=== PATIENT | female | born 1955 | race Caucasian/White ===

== ENCOUNTER 2022-01-25 08:24 | Outpatient (CLI) | payer OTHER, SELFPAY | END 2022-01-25 08:25 | disposition home or self-care (01) | LOC: RAD 08:48 | PROVIDERS: PCP Internal Medicine; Visit Provider Physician Assistant | DX: Z01.419 Encounter for gynecological examination (general) (routine) without abnormal findings (principal); Z85.44 Personal history of malignant neoplasm of other female genital organs; L29.2 Pruritus vulvae; N39.3 Stress incontinence (female) (male); Z13.6 Encounter for screening for cardiovascular disorders; Z13.1 Encounter for screening for diabetes mellitus ==

== ENCOUNTER 2022-01-25 08:34 | Outpatient (CLI) | payer OTHER, SELFPAY ==
[2022-01-25 11:30] LABS: Chloride* 109 mmol/L (96-114)
[2022-01-25 11:31] LABS: Albumin* 4.1 g/dL (3.3-5.0); Potassium* 4.1 mmol/L (3.6-5.1); Sodium* 138 mmol/L (135-149)
[2022-01-25 11:33] LABS: Carbon Dioxide* 21 mmol/L (20-32); Cholesterol* 177 mg/dL (90-199)
[2022-01-25 11:34] LABS: Alanine Aminotransferase* 20 U/L (4-35); Alkaline Phosphatase* 104 U/L (40-150); Aspartate Amino Transferase* 24 U/L (12-35); Bilirubin Total* 1.2 mg/dL (0.1-1.5); Blood Urea Nitrogen* 14 mg/dL (7-30); Calcium* 9.1 mg/dL (8.4-10.6); Creatinine* 0.9 mg/dL (0.5-1.5); Estimated Glomerular Filt Rate 70.95; Glucose* 111 mg/dL (60-115); Total Protein* 6.7 g/dL (6.0-8.3); Triglycerides* 203 mg/dL (40-149)
[2022-01-25 11:35] LABS: HDL Cholesterol* 27 mg/dL (>=50); LDL Cholesterol Calculated 109 mg/dL (<100)
== END 2022-01-25 08:35 | disposition home or self-care (01) ==
PROVIDERS: PCP Internal Medicine; Visit Provider Physician Assistant
DX: Z00.00 Encounter for general adult medical examination without abnormal findings (principal); N39.0 Urinary tract infection, site not specified; I10 Essential (primary) hypertension; N39.3 Stress incontinence (female) (male); E66.9 Obesity, unspecified; E55.9 Vitamin D deficiency, unspecified; T83.510A Infection and inflammatory reaction due to cystostomy catheter, initial encounter; E03.8 Other specified hypothyroidism; E78.5 Hyperlipidemia, unspecified
CPT/HCPCS: 80053; 80061; 87086

== ENCOUNTER 2022-09-06 16:00 | Outpatient (CLI) | payer OTHER, SELFPAY | END 2022-09-06 16:01 | disposition home or self-care (01) | PROVIDERS: PCP Internal Medicine; Visit Provider Obstetrics & Gynecology | DX: R30.0 Dysuria (principal); R63.5 Abnormal weight gain | CPT/HCPCS: 84443; 87086 ==

== ENCOUNTER 2022-09-10 12:56 | Outpatient (CLI) | payer OTHER, SELFPAY ==
--- NOTE | 2022-09-10 13:20 | CRLHL7_ITS ---
For Patients: As a result of the Century Cures Act, medical imaging exams and procedure reports are released immediately into your electronic medical record. You may view this report before your referring provider. If you have questions, please contact your health care provider. BILATERAL SCREENING MAMMOGRAM WITH COMPUTER-AIDED DETECTION TECHNIQUE: CC and MLO views were obtained. These mammographic images have been obtained using full-field digital technique. These mammographic images were interpreted with the benefit of computer-aided detection. COMPARISON FILM: 06/26/21, 05/12/20. FINDINGS: There are scattered areas of fibroglandular density. IMPRESSION: There is no radiographic evidence for malignancy. ASSESSMENT: BI-RADS Category 1: Negative RECOMMENDATION: Routine screening mammogram in 1 year. A lay language report of this examination will be provided to the patient. RIKKI GARDNER M.D. Diagnostic Radiologist [email or web address] Transcribed: 09/11/2022, 2:[address]/Dictated by: Rikki Gardner MD @ 09/11/2022 9:11:00 AM (Electronically Signed)
--- NOTE | 2022-09-10 14:00 | CRLHL7_ITS ---
For Patients: As a result of the Century Cures Act, medical imaging exams and procedure reports are released immediately into your electronic medical record. You may view this report before your referring provider. If you have questions, please contact your health care provider. INDICATION: pelvic pain COMPARISON: none TECHNIQUE: 2D white scale and color Doppler images were acquired of the pelvis using a transabdominal and transvaginal approach. FINDINGS: Sonographic images demonstrate a normal size and smooth outer contour of the uterus. Uterus measures 7.7 cm in length by 4.0 cm in AP diameter by 5.3 cm in transverse dimension. Myometrial calcifications noted measuring 7 millimeters and 8 millimeters. The endometrium is not visualized due to dense uterine parenchyma. The ovaries are not visualized. There are no suspicious fluid collections within the cul-de-sac. IMPRESSION: Nonvisualization of the ovaries. Incidental uterine calcifications. Nonvisualization of the endometrium. Dictated by Rikki Saleh MD @ 09/11/2022 11:20:45 AM (Electronically Signed)
== END 2022-09-10 12:57 | disposition home or self-care (01) ==
LOC: MAMMO 12:56
PROVIDERS: PCP Internal Medicine; Visit Provider Obstetrics & Gynecology
DX: Z12.31 Encounter for screening mammogram for malignant neoplasm of breast (principal); R10.2 Pelvic and perineal pain
CPT/HCPCS: 76830; 76856; 77063; 77067

== ENCOUNTER 2023-02-11 13:55 | Outpatient (CLI) | payer OTHER, SELFPAY | END 2023-02-11 13:56 | disposition home or self-care (01) | LOC: NFLDREF 13:57 | PROVIDERS: PCP Internal Medicine; Visit Provider Obstetrics & Gynecology | DX: R30.0 Dysuria (principal); R10.2 Pelvic and perineal pain | CPT/HCPCS: 87086 ==

== ENCOUNTER 2023-09-09 14:54 | Outpatient (CLI) | payer MEDICARE, BC, SELFPAY ==
--- OUTSIDE RECORDS SUMMARY | 2023-09-10 06:02 | XMS_ITS | Clinical Summary ---
Author Name Unknown Organization [facility] Address [place], [place] [address] Care Team Providers Care Quality Process Lead Name Role Phone Pcp, No Primary Care Provider Unavailabl e Allergies Active Allergy Reactions Criticality Noted Date Comments Iodinated Contrast Media Hives 04/02/2011 Not certain which type of dye - possible gadolinium reaction. Patient tolerated Isoview 300 IV bolus for 11/2017 CT scan without problem. Signed Electronically: Lee Middleton M.D. ??. . . 12:09 PM 12/16/2017 Erythromycin Rash 08/25/2007 Medications Medication Sig Dispensed Refills Start Date End Date Status oxyCODONE-acetamin ophen, 5-325 mg, (PERCOCET) per tablet Take 1 to 2 tablets orally every 4-6 hours as needed for pain. Max acetaminophen dose: 4000mg in 24 hrs. 0 08/27/2012 Active cyclobenzaprine (FLEXERIL) 10 mg tablet Take 1 tablet by mouth every 8 hours if needed for Muscle Spasm. 30 tablet 0 08/28/2012 Active Active Problems Problem Noted Date Diagnosed Date Rectal bleeding 09/26/2009 Osteoarthritis of Knees 05/25/2009 Shoulder impingement syndrome 05/22/2009 Displacement of intervertebr al disc, site unspecified, without myelopathy Overview: L3-4 with L 3 radiculopathy, L4-5 radiculopathy Resolved Problems Problem Noted Date Diagnosed Date Resolved Date snf (current) use of anticoagulants 04/15/2011 05/03/2011 Immunizations Name Administration Dates Next Due Td (Age >=7 Years) 03/07/2005 Family History Medical History Relation Name Comments Diabetes Mother Hyperlipidemia Mother Relation Name Status Comments Mother Social History Tobacco Use Types Packs/Day Years Used Date Smoking Tobacco: Former Cigarettes Q uit: 07/28/1993 Smokeless Tobacco: Never Alcohol Use Standard Drinks/Week Comments No 0 (1 standard drink = 0.6 oz pur e alcohol) Sex and Gender Information Value Date Recorded Sex Assigned at Not on file Gender Identity Not on file Sexual Orientation Not on file Obstetrics History Last Filed Vital Signs Vital Sign Reading Time Taken Comments Blood Pressure 137/86 08/27/2012 11:51 AM WATER TAXI FERRY OPERATOR Pulse 72 08/27/2012 11:51 AM WATER TAXI FERRY OPERATOR Temperature 37 ??C (98.6 ??F) 04/02/2011 12: 05 PM CDT Respiratory Rate 16 04/02/2011 12:0 5 PM CDT Oxygen Saturation 96% 09/11/2011 12: 06 PM WATER TAXI FERRY OPERATOR Inhaled Oxygen Concentration - - Weight 102.2 kg (225 lb 6.4 oz) 013 11:14 AM WATER TAXI FERRY OPERATOR Height 162.6 cm (5' 4) 04/02/2011 12:0 5 PM CDT Body Mass Index 38.69 04/02/2011 12:05 PM CDT Plan of Treatment Health Maintenance Due Date Last Done Comments COVID-19 vaccine series (#1) 03/12/1956 Tdap 1967 Depression screening for age 12+ 1968 BMI (ht and wt on same day) for age 18+ 1974 Hepatitis C screening for age 18-79 1974 Zoster (shingles) series for age 50+ (1 of 2) 2006 Mammogram for age 45-75 02/22/2015 02/22/2014, 04/21 Tetanus booster 03/07/2015 03/07/2005 Lipids for age 45-75 05/10/2015 05/10/2010 Colonoscopy through age 75 08/28/2015 08/28/2005 DEXA/DXA scan for age 65+ 2021 Pneumococcal series for age 65+ (1 of 1 - PCV) 2021 Influenza for age 65+ 03/28/2023 Care Teams Quality Process Lead Relationship Specialty Start Date End Date Pcp, No . PCP - General 02/06/23
== END 2023-09-09 14:55 | disposition home or self-care (01) ==
LOC: NFLDREF 09-10 06:00
PROVIDERS: PCP Internal Medicine; Referring Provider Internal Medicine; Visit Provider Internal Medicine
DX: R30.0 Dysuria (principal)
CPT/HCPCS: 87086

== ENCOUNTER 2023-12-10 06:37 | Emergency (ER) | payer MEDICARE, BC, SELFPAY ==
[2023-12-10] VITALS (28 sets, daily range): BP systolic 124–153; BP diastolic 107–131; PULSE 139–156; RESP 18; TEMP 36.5–36.9; O2SAT 93–97; BMI 38.3
[2023-12-10] MEDS: ASPIRIN 81 MG TAB.CHEW 324 MG PO (06:59)
[2023-12-10] MEDS: 0.9 % SODIUM CHLORIDE 500 ML 500 ML IV (07:00)
--- NOTE | 2023-12-10 07:01 | XR_ITS ---
Patient: KERRY SORIA Facility:?[facility] Patient ID:?[id number] Site Patient ID:?[id number] Site :?[id number] Study:?XRay-Chest 2V-12/10/2023 7:37:56 AM Ordering Physician:CAPO Final Report: INDICATION: Dyspnea. COMPARISON: None available. TECHNIQUE: 2 views. FINDINGS: Slightly rotated leftward on the frontal view of the chest. Medical Devices: None. Lung Volumes: Adequate inspiration. No significant atelectasis. Lungs: Upper lobe pulmonary venous diversion. Pleura and Pleural spaces: No significant pleural effusion. No pneumothorax. Mediastinum: Normal cardiomediastinal silhouette. Bony Thorax and Soft Tissues: No significant incidental findings. IMPRESSION: Upper lobe pulmonary venous diversion consistent with mild congestive heart failure. Dictated by Juan Carlos Pardo MD @ 12/10/2023 7:48:13 AM Signed by:?Juan Carlos Pardo MD @12/10/2023 7:48:13 AM (Electronic Signature)
[2023-12-10 07:07] LABS: Troponin, Point-of-Care* 0.02 ng/ml (0.01-0.04)
--- OUTSIDE RECORDS SUMMARY | 2023-12-10 07:16 | XMS_ITS | Clinical Summary ---
Author Name Unknown Organization [facility] Address [place], [place] [address] Care Team Providers Care Cod Clerk Name Role Phone Pcp, No Primary Care [...] Problem Noted Date Diagnosed Date Resolved Date USP (current) use of anticoagulants 04/15/2011 05/03/2011 Immunizations [...] Comments Blood Pressure 137/86 08/27/2012 11:51 AM FIRE SUPPORT MAN Pulse 72 08/27/2012 11:51 AM FIRE SUPPORT MAN Temperature 37 ??C (98.6 ??F) 04/02/2011 12: 05 PM CDT Respiratory Rate 16 04/02/2011 12:0 5 PM CDT Oxygen Saturation 96% 09/11/2011 12: 06 PM FIRE SUPPORT MAN Inhaled Oxygen Concentration - - Weight 102.2 kg (225 lb 6.4 oz) 013 11:14 AM FIRE SUPPORT MAN Height 162.6 cm (5' 4) 04/02/2011 12:0 5 PM CDT Body Mass Index 38.69 04/02/2011 12:05 PM CDT Plan of Treatment Health Maintenance Due Date Last Done Comments Tdap 1967 Depression screening for age 12+ [...] 65+ (1 of 1 - PCV) 2021 COVID-19 vaccine series (1 - 2022- season) 2023 Influenza for age 65+ 03/28/2024 Procedures Procedure Name Priority Date/Time Associated Diagnosis Comments SCAN-MAMMOGRAPHY REPORT 02/22/2014 12:00 AM CDT LIPID PANEL W REFLEX MEASURED LDL Routine 05/10/2010 7:47 AM CDT Screening, lipid from Last 3 Months or Most Recently Relevant to Health Maintenance Results * SCAN-MAMMOGRAPHY REPORT (02/22/2014 12:00 AM CDT) Anatomical Region Laterality Modality Other Narrative 02/23/2014 11:06 AM CDT Procedure Note Scanner - 02/22/2014 12:00 AM CDT Scanner OTHER * (ABNORMAL) LIPID PANEL W REFLEX MEASURED LDL (05/10/2010 7:47 AM CDT) CHOLESTEROL,TOTAL 186 110 - 199 mg/dL [facility] TRIGLYCERIDES 128 <150 mg/dL [facility] HDL CHOLESTEROL 36(L) >40 mg/dL [facility] CHOL/HDL RATIO 5.17(H) <4.51 [facility] LDL CHOLESTEROL 124 <131 mg/dL [facility] PATIENT STATUS Fasting [facility] Blood specimen (specimen) BLOOD SPECIMEN / Unknown 05/10/2010 7:47 AM CDT 05/10/2010 7:43 AM CDT Pat Ferguson MD CHEMISTRY Performing Organization Address City/State/[facility] Co de Phone Number [facility] [address] [place] [address] from Last 3 Months or Most Recently Relevant to Health Maintenance Care Teams Cod Clerk Relationship Specialty Start Date End Date Pcp, No . PCP - General 02/06/23
[2023-12-10 07:24] LABS: Basophils Absolute Auto 0.03 K/uL (0.00-0.30); Basophils Percent Auto 0.3 % (0.0-3.0); Eosinophils Absolute Auto 0.18 K/uL (0.00-0.50); Eosinophils Percent Auto 1.8 % (0.0-7.0); Hematocrit 54.2 % (33.0-51.0); Hemoglobin* 18.4 gm/dL (12.0-16.0); Immature Granulocytes Abs Auto 0.04 K/uL (0.00-0.30); Immature Granulocytes Pct Auto 0.4 %; Lymphocytes Absolute Auto 2.13 K/uL (0.90-2.90); Lymphocytes Percent Auto 21.2 % (20-44); Mean Corpuscular HGB Conc 34 gm/dL (32-36); Mean Corpuscular Hemoglobin 30 pg (26-34); Mean Corpuscular Volume 89 fL (80-100); Monocytes Percent Auto 5.3 % (0.0-11.0); Neutrophils Absolute Auto 7.16 K/uL (1.7-7.0); Platelet Count* 165 K/uL (140-440); RDW Coefficient of Variation % 12.2 % (11.5-15.5); Red Blood Count 6.06 m/uL (4.00-5.20); White Blood Count* 10.07 K/uL (4.50-11.00)
[2023-12-10 07:26] LABS: Slide Review Reflex No
--- NOTE | 2023-12-10 07:26 | ED_ITS ---
HPI - General Adult General Chief complaint: Chest Pain <Heather David MD - Last Filed: 12/16/23 03:23> Stated complaint: trouble breathing <Heather David MD - Last Filed: 12/16/23 03:23> Time Seen by Provider: 12/10/23 06:38 <Heather David MD - Last Filed: 12/16/23 03:23> Source: patient <Heather David MD - Last Filed: 12/16/23 03:23> Mode of arrival: ambulatory <Heather David MD - Last Filed: 12/16/23 03:23> Limitations: no limitations <Heather David MD - Last Filed: 12/16/23 03:23> History of Present Illness HPI narrative: 68-year-old female reports that she has been feeling short of breath and fatigue since Friday which is 4-5 days ago. She woke up with a little bit of chest pain this morning at 3:00 a.m. which is about 2 hours prior to arrival which has since resolved. She was feeling very short of breath at that time. No fevers, no trauma or injury, no prior history of similar symptoms. No prior history of coronary artery disease or arrhythmia. She does have a family history of heart disease but not premature ages. She did not try taking any medications or other interventions prior to coming to the ED. no productive cough, no abdominal pain. No vomiting, no stool changes. She does have a history of type 2 diabetes, hypertension, obesity. Denies history of DVT, PE or prior arrhythmia. Atenolol, Celebrex, amlodipine listed in home medications, states she is not taking. Allergies to oxycodone causing a rash. Nonsmoker. ROS notable for the cardiopulmonary and generalized symptoms as described above. Otherwise denies times 12 systems. <Heather David MD - Last Filed: 12/16/23 03:23> Related Data Home medications: Home Medications Medication Instructions Recorded Confirmed cholecalciferol (vitamin D3) 125 5,000 unit PO DAILY 01/25/22 12/15/23 mcg (5,000 unit) tablet ibuprofen 200 mg tablet mg PO Q6-8H PRN 02/20/22 12/15/23 apixaban 5 mg tablet (Eliquis) 5 mg PO BID 12/14/23 12/15/23 sotalol 80 mg tablet 80 mg PO BID 12/14/23 12/15/23 Previous Rx's Medication Instructions Recorded estradiol 0.01% (0.1 mg/gram) 1 appful vaginal QDAY #42.5 grams 02/11/23 vaginal cream triamcinolone acetonide 0.1 % 1 applic topical QDAY #30 grams 02/11/23 topical ointment phenazopyridine 200 mg tablet 200 mg PO TID #14 tabs 09/09/23 (Pyridium) <Heather David MD - Last Filed: 12/16/23 03:23> Allergies/adverse reactions: Allergies Allergy/AdvReac Type Severity Reaction Status Date / Time oxycodone Allergy Severe Full body Verified 12/15/23 12:43 rash Erythromycin Allergy Intermediate Hives Uncoded 12/15/23 12:43 Iodinated Diagnostic Agents Allergy Intermediate Rash Uncoded 12/15/23 12:43 <Heather David MD - Last Filed: 12/16/23 03:23> [facility] Medical History: Medical History (Updated 12/15/23 @ 12:57 by Kelechi Avitia MD) Bradycardia ?R00.1 - Bradycardia, unspecified (ICD-10) Fatty liver ?K76.0 - Fatty (change of) liver, not elsewhere classified (ICD-10) Impaired fasting glucose ?R73.01 - Impaired fasting glucose (ICD-10) Patent foramen ovale ?Q21.12 - Patent foramen ovale (ICD-10) Congestive heart failure ?I50.9 - Heart failure, unspecified (ICD-10) Atrial flutter (12/10/23) ?I48.92 - Unspecified atrial flutter (ICD-10) Atrophic vulvovaginitis ?N95.2 - Postmenopausal atrophic vaginitis (ICD-10) Pelvic pain ?R10.2 - Pelvic and perineal pain (ICD-10) Chronic back pain ?M54.9 - Dorsalgia, unspecified (ICD-10) ?G89.29 - Other chronic pain (ICD-10) Obesity ?E66.9 - Obesity, unspecified (ICD-10) Type 2 diabetes mellitus ?E11.9 - Type 2 diabetes mellitus without complications (ICD-10) Bilateral hand pain ?M79.641 - Pain in right hand (ICD-10) ?M79.642 - Pain in left hand (ICD-10) JAIME (stress urinary incontinence, female) ?N39.3 - Stress incontinence (female) (male) (ICD-10) Vitamin D deficiency ?E55.9 - Vitamin D deficiency, unspecified (ICD-10) Subclinical hypothyroidism ?E03.8 - Other specified hypothyroidism (ICD-10) Lung nodule ?R91.1 - Solitary pulmonary nodule (ICD-10) History of dermatitis ?Z87.2 - Personal history of diseases of the skin and subcutaneous tissue (ICD-10) History of adenomatous polyp of colon ?Z86.010 - Personal history of colonic polyps (ICD-10) Essential hypertension ?I10 - Essential (primary) hypertension (ICD-10) Dyslipidemia ?E78.5 - Hyperlipidemia, unspecified (ICD-10) Carcinoma of vulva ?C51.9 - Malignant neoplasm of vulva, unspecified (ICD-10) <Heather David MD - Last Filed: 12/16/23 03:23> Surgical History: Surgical History (Updated 12/12/23 @ 13:03 by Jayna Yee) History of cardioversion ?Z92.89 - Personal history of other medical treatment (ICD-10) History of total replacement of both hip joints ?Z96.643 - Presence of artificial hip joint, bilateral (ICD-10) History of tubal ligation ?Z98.51 - Tubal ligation status (ICD-10) History of total knee replacement (04/12/11) ?Z96.659 - Presence of unspecified artificial knee joint (ICD-10) History of endometrial ablation (2005) ?Z98.890 - Other specified postprocedural states (ICD-10) History of cholecystectomy (1993) ?Z90.49 - Acquired absence of other specified parts of digestive tract (ICD- 10) History of carpal tunnel release ?Z98.890 - Other specified postprocedural states (ICD-10) <Heather David MD - Last Filed: 12/16/23 03:23> Family History: Family History Mother Dementia Diabetes Hypothyroidism Father High blood pressure Nonmelanoma skin cancer Uncle Stroke <Heather David MD - Last Filed: 12/16/23 03:23> Social History: Social History Narrative: Does not exercise due to knee pain , 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 [employer] Non-smoker- quit age 37, 15 pack years Rarely consumes alcohol What is your current living situation?: I presently have a place to live Problems where you live: no known problems In the past 12 months, utilities in danger of being shut off: no In past 12 months, lack of transportation kept you from medical appts, meetings, work, or getting things needed for daily living: no In the past 12 mos, have been you worried that your food would run out before you had money to buy more?: never true In the past 12 mos, the food you bought just didn't last and you didn't have money to buy more?: never true Smoking Status: Former smoker How often do you have a drink containing alcohol: never AUDIT-C Alcohol total score: 0 Non-prescribed substance use: denies use How often does anyone, including family, friends and others, physically hurt you : never How often does anyone, including family, friends and others, insult or talk down to you: never How often does anyone, including family, friends and others, threaten you with harm: never How often does anyone, including family, friends and others, scream or curse at you: never Little interest or pleasure in doing things: not at all Feeling down, depressed, or hopeless: not at all <Heather David MD - Last Filed: 12/16/23 03:23> Exam Const: Vital Signs, click to edit/add: Vital Signs - 24 hr 12/10/23 06:42 12/10/23 07:07 12/10/23 07:12 Temperature 97.7 F Pulse Rate 150 H 150 H Pulse Rate [Left P ulse Oximeter] 150 H Respiratory Rate 18 Blood Pressure 141/119 H Blood Pressure [Ri ght Upper Arm] 153/131 H Pulse Oximetry 97 95 93 Oxygen Delivery Me thod Room Air 12/10/23 07:13 12/10/23 07:22 12/10/23 07:35 Temperature Pulse Rate 151 H 151 H 150 H Pulse Rate [Left P ulse Oximeter] Respiratory Rate Blood Pressure 134/108 H Blood Pressure [Ri ght Upper Arm] Pulse Oximetry 94 95 94 Oxygen Delivery Me thod 12/10/23 07:38 12/10/23 07:39 12/10/23 07:42 Temperature Pulse Rate 152 H 150 H 148 H Pulse Rate [Left P ulse Oximeter] Respiratory Rate Blood Pressure 145/119 H 135/119 H Blood Pressure [Ri ght Upper Arm] Pulse Oximetry 95 95 95 Oxygen Delivery Me thod 12/10/23 07:43 12/10/23 07:52 12/10/23 08:00 Temperature Pulse Rate 147 H 148 H 148 H Pulse Rate [Left P ulse Oximeter] Respiratory Rate Blood Pressure 147/126 H Blood Pressure [Ri ght Upper Arm] Pulse Oximetry 94 95 95 Oxygen Delivery Me thod 12/10/23 08:02 12/10/23 08:12 12/10/23 08:22 Temperature Pulse Rate 149 H 148 H 148 H Pulse Rate [Left P ulse Oximeter] Respiratory Rate Blood Pressure 152/129 H 143/121 H 140/111 H Blood Pressure [Ri ght Upper Arm] Pulse Oximetry 94 95 95 Oxygen Delivery Me thod 12/10/23 08:30 12/10/23 08:32 12/10/23 08:42 Temperature Pulse Rate 148 H 148 H 148 H Pulse Rate [Left P ulse Oximeter] Respiratory Rate Blood Pressure 149/125 H 135/108 H Blood Pressure [Ri ght Upper Arm] Pulse Oximetry 96 96 95 Oxygen Delivery Me thod 12/10/23 08:52 12/10/23 09:00 12/10/23 09:02 Temperature Pulse Rate 149 H 144 H 143 H Pulse Rate [Left P ulse Oximeter] Respiratory Rate Blood Pressure 143/125 H 139/114 H Blood Pressure [Ri ght Upper Arm] Pulse Oximetry 95 93 95 Oxygen Delivery Me thod 12/10/23 09:12 Temperature 98.4 F Pulse Rate Pulse Rate [Left P ulse Oximeter] Respiratory Rate Blood Pressure Blood Pressure [Ri ght Upper Arm] Pulse Oximetry Oxygen Delivery Me thod <Heather David MD - Last Filed: 12/16/23 03:23> Vital Signs, click to edit/add: Vital Signs - 24 hr 12/10/23 06:42 12/10/23 07:07 12/10/23 07:12 Temperature 97.7 F Pulse Rate 150 H 150 H Pulse Rate [Left P ulse Oximeter] 150 H Respiratory Rate 18 Blood Pressure 141/119 H Blood Pressure [Ri ght Upper Arm] 153/131 H Pulse Oximetry 97 95 93 Oxygen Delivery Me thod Room Air 12/10/23 07:13 12/10/23 07:22 12/10/23 07:35 Temperature Pulse Rate 151 H 151 H 150 H Pulse Rate [Left P ulse Oximeter] Respiratory Rate Blood Pressure 134/108 H Blood Pressure [Ri ght Upper Arm] Pulse Oximetry 94 95 94 Oxygen Delivery Me thod 12/10/23 07:38 12/10/23 07:39 12/10/23 07:42 Temperature Pulse Rate 152 H 150 H 148 H Pulse Rate [Left P ulse Oximeter] Respiratory Rate Blood Pressure 145/119 H 135/119 H Blood Pressure [Ri ght Upper Arm] Pulse Oximetry 95 95 95 Oxygen Delivery Me thod 12/10/23 07:43 12/10/23 07:52 12/10/23 08:00 Temperature Pulse Rate 147 H 148 H 148 H Pulse Rate [Left P ulse Oximeter] Respiratory Rate Blood Pressure 147/126 H Blood Pressure [Ri ght Upper Arm] Pulse Oximetry 94 95 95 Oxygen Delivery Me thod 12/10/23 08:02 12/10/23 08:12 12/10/23 08:22 Temperature Pulse Rate 149 H 148 H 148 H Pulse Rate [Left P ulse Oximeter] Respiratory Rate Blood Pressure 152/129 H 143/121 H 140/111 H Blood Pressure [Ri ght Upper Arm] Pulse Oximetry 94 95 95 Oxygen Delivery Me thod 12/10/23 08:30 12/10/23 08:32 12/10/23 08:42 Temperature Pulse Rate 148 H 148 H 148 H Pulse Rate [Left P ulse Oximeter] Respiratory Rate Blood Pressure 149/125 H 135/108 H Blood Pressure [Ri ght Upper Arm] Pulse Oximetry 96 96 95 Oxygen Delivery Me thod 12/10/23 08:52 12/10/23 09:00 12/10/23 09:02 Temperature Pulse Rate 149 H 144 H 143 H Pulse Rate [Left P ulse Oximeter] Respiratory Rate Blood Pressure 143/125 H 139/114 H Blood Pressure [Ri ght Upper Arm] Pulse Oximetry 95 93 95 Oxygen Delivery Me thod 12/10/23 09:12 Temperature 98.4 F Pulse Rate Pulse Rate [Left P ulse Oximeter] Respiratory Rate Blood Pressure Blood Pressure [Ri ght Upper Arm] Pulse Oximetry Oxygen Delivery Me thod <Viv Sullivan MD - Last Filed: 12/10/23 09:20> Documenting provider has reviewed patient's vital signs: yes <Heather David MD - Last Filed: 12/16/23 03:23> Common normals: alert <Heather David MD - Last Filed: 12/16/23 03:23> Other: Seems visibly short of breath. On the cardiac monitors heart rate is consistently 150. Answers questions appropriately, normal mentation. <Heather David MD - Last Filed: 12/16/23 03:23> HENMT: Common normals: normocephalic, moist oral mucous membranes and oropharynx normal <Heather David MD - Last Filed: 12/16/23 03:23> Head and scalp: normocephalic <Heather David MD - Last Filed: 12/16/23 03:23> Eye: Common normals: conjunctivae normal <MD Rehan Villasenor Last Filed: 12/16/23 03:23> General eye: normal appearance of both eyes <Heather David MD - Last Filed: 12/16/23 03:23> Conjunctiva: conjunctiva(e) normal <MD Rehan Villasenor Last Filed: 12/16/23 03:23> Neck & C-Spine: Common normals: full ROM and no lymphadenopathy <Heather David MD - Last Filed: 12/16/23 03:23> Resp: Common normals: normal respiratory effort, no use of accessory muscles and clear to auscultation bilaterally <MD Rehan Villasenor Last Filed: 12/16/23 03:23> Effort & inspection: able to speak in complete sentences <MD Rehan Villasenor Last Filed: 12/16/23 03:23> Auscultation: clear to auscultation bilaterally <MD Rehan Villasenor Last Filed: 12/16/23 03:23> Cardio: Common normals: regular rate, regular rhythm, S1 normal heart sound, S2 normal heart sound and no murmurs <Heather David MD - Last Filed: 12/16/23 03:23> Rate: regular rate <MD Rehan Villasenor Last Filed: 12/16/23 03:23> Rhythm: regular rhythm <MD Rehan Villasenor Last Filed: 12/16/23 03:23> Heart sounds: S1 normal and S2 normal <MD Rehan Villasenor Last Filed: 12/16/23 03:23> GI: Common normals: Normal to inspection, nondistended, normoactive bowel sounds present, soft to palpation, non-tender, no hepatosplenomegaly and no masses <MD Rehan Villasenor Last Filed: 12/16/23 03:23> Palpation: soft and no hepatosplenomegaly <Heather David MD - Last Filed: 12/16/23 03:23> Extremity: Other: 1+ pedal edema bilaterally, equal and sy mmetric. <MD Rehan Villasenor Last Filed: 12/16/23 03:23> Neuro: Sensorium/orientation: alert <MD Rehan Villasenor Last Filed: 12/16/23 03:23> Speech: speech normal <MD Rehan Villasenor Last Filed: 12/16/23 03:23> Motor exam: strength 5/5 throughout <MD Rehan Villasenor Last Filed: 12/16/23 03:23> Psych: Attitude: engaged <MD Rehan Villasenor Last Filed: 12/16/23 03:23> Activity/motor behavior: appropriate eye contact <MD Rehan Villasenor Last Filed: 12/16/23 03:23> Insight: insight good <Heather David MD - Last Filed: 12/16/23 03:23> Judgement: judgment good <Heather David MD - Last Filed: 12/16/23 03:23> Skin: Common normals: no rashes or lesions noted <Heather David MD - Last Filed: 12/16/23 03:23> General skin exam: no rashes or lesions noted <Heather David MD - Last Filed: 12/16/23 03:23> Course Course ED Course: 68-year-old female presenting with tachycardia, suspicious for 2 to an atrial flutter. Cannot exclude acute coronary syndrome, other arrhythmia, pulmonary embolism, among others. Risk for heart failure, electrolyte or metabolic abnormality. Will place IV, give 325 aspirin. Chest x-ray, basic labs. At this point she is not unstable but will consider cardioversion. She has been symptomatic for a few days so certainly suspect longer than 24 hours. May require cardiology input. <Heather David MD - Last Filed: 12/16/23 03:23> Reevaluation(s) Time of Reevaluation #1: 07:50 <Heather David MD - Last Filed: 12/16/23 03:23> Reevaluation #1: counseled patient on findings, atrial flutter. Labs, imaging reviewed. Discussed cardioversion. Not feeling well for a few days, but marked change at 0100 this Am. I was able to mow the grass and perform some chores around the house yesterday without this level of shortness of breath. She is not anticoagulated but I do suspect that she probably has not been symptomatic for 48 hours. <Heather David MD - Last Filed: 12/16/23 03:23> Time of Reevaluation #2: 08:36 <Heather David MD - Last Filed: 12/16/23 03:23> Reevaluation #2: Discussed bed availability with patient. I did speak with Dr. Garcia from Cardiology. He is suspicious that she has been in a flutter longer based on her symptoms and that has now gone into mild heart failure causing her symptom exacerbation this morning at 1:00 a.m. and honestly as I think through it, I also agree. I discussed this with patient. There was an 8 hour delay for [facility]. I have also placed calls to [facility] for a bed and nail will not allow me to be on a wait list anywhere because they are on full diversion. Patient needs a ANA and cardioversion. She is unlikely to benefit from medications. Cardiology did recommend that we make a trial of digoxin and beta- gigi as well as start a DOAC. Will order 5 mg of IV metoprolol, to 50 of digoxin and begin Xarelto. Patient will remain NPO awaiting hospital transfer. Will hand over care to man coming day shift partner. <Heather David MD - Last Filed: 12/16/23 03:23> Discussed bed availability with patient. I did speak with Dr. Garcia from Cardiology. He is suspicious that she has been in a flutter longer based on her symptoms and that has now gone into mild heart failure causing her symptom exacerbation this morning at 1:00 a.m. and honestly as I think through it, I also agree. I discussed this with patient. There was an 8 hour delay for [facility]. I have also placed calls to [facility] for a bed and nail will not allow me to be on a wait list anywhere because they are on full diversion. Patient needs a ANA and cardioversion. She is unlikely to benefit from medications. Cardiology did recommend that we make a trial of digoxin and beta- gigi as well as start a DOAC. Will order 5 mg of IV metoprolol, 250mcg of digoxin and begin Xarelto. Patient will remain NPO awaiting hospital transfer. Will hand over care to man coming day shift partner. <Viv Sullivan MD - Last Filed: 12/10/23 09:20> Time of Reevaluation #3: 09:18 <Viv Sullivan MD - Last Filed: 12/10/23 09:20> Reevaluation #3: I have assumed care of patient. Jayna has called for report, this is much quicker than we expected. Patient did not respond to the metoprolol at all. She is receiving digoxin loading, not due for next dose yet. Xarelto has been initiated. Patient remains tachycardic but otherwise hemodynamically stable, no worsening CHF at this time. Transfer will be happening shortly to [place] where she can get further appropriate cardiac cares. <Viv Morales MD - Last Filed: 12/10/23 09:20> Vital Signs Vital signs: Initial Vital Signs Temperature 97.7 F 12/10/23 06:42 Temperature Source Temporal Artery Scan 12/10/23 06:42 Pulse Rate 150 H 12/10/23 06:42 Pulse Rhythm Regular 12/10/23 06:42 Respiratory Rate 18 12/10/23 06:42 Blood Pressure 153/131 H 12/10/23 06:42 Blood Pressure Mean 138 H 12/10/23 06:42 Blood Pressure Position Sitting 12/10/23 06:42 Pulse Oximetry 97 12/10/23 06:42 Oxygen Delivery Method Room Air 12/10/23 06:42 Vital Signs Temperature 97.7 F 12/10/23 06:42 Pulse Rate 150 H 12/10/23 06:42 Respiratory Rate 18 12/10/23 06:42 Blood Pressure 153/131 H 12/10/23 06:42 Pulse Oximetry 97 12/10/23 06:42 Oxygen Delivery Method Room Air 12/10/23 06:42 Temperature 98.4 F 12/10/23 09:12 Pulse Rate 140 H 12/10/23 10:02 Respiratory Rate 18 12/10/23 06:42 Blood Pressure 137/115 H 12/10/23 10:02 Pulse Oximetry 93 12/10/23 10:02 Oxygen Delivery Method Room Air 12/10/23 06:42 <Heather David MD - Last Filed: 12/16/23 03:23> Initial Vital Signs Temperature 97.7 F 12/10/23 06:42 Temperature Source Temporal Artery Scan 12/10/23 06:42 Pulse Rate 150 H 12/10/23 06:42 Pulse Rhythm Regular 12/10/23 06:42 Respiratory Rate 18 12/10/23 06:42 Blood Pressure 153/131 H 12/10/23 06:42 Blood Pressure Mean 138 H 12/10/23 06:42 Blood Pressure Position Sitting 12/10/23 06:42 Pulse Oximetry 97 12/10/23 06:42 Oxygen Delivery Method Room Air 12/10/23 06:42 Vital Signs Temperature 97.7 F 12/10/23 06:42 Pulse Rate 150 H 12/10/23 06:42 Respiratory Rate 18 12/10/23 06:42 Blood Pressure 153/131 H 12/10/23 06:42 Pulse Oximetry 97 12/10/23 06:42 Oxygen Delivery Method Room Air 12/10/23 06:42 Temperature 98.4 F 12/10/23 09:12 Pulse Rate 140 H 12/10/23 10:02 Respiratory Rate 18 12/10/23 06:42 Blood Pressure 137/115 H 12/10/23 10:02 Pulse Oximetry 93 12/10/23 10:02 Oxygen Delivery Method Room Air 12/10/23 06:42 <Viv Sullivan MD - Last Filed: 12/10/23 09:20> Medications Administered Medications: Discontinued Medications Generic Name Dose Route Start Last Admin Trade Name Freq PRN Reason Stop Dose Admin Aspirin 324 mg 12/10/23 07:01 12/10/23 06:59 Aspirin 81 Mg Tab.Chew PO 12/10/23 07:02 324 mg ONCE ONE Administration Digoxin 250 mcg 12/10/23 08:08 12/10/23 08:43 Digoxin 250 Mcg/Ml Inj IV 12/10/23 08:09 250 mcg ONCE ONE Administration Sodium Chloride 500 mls @ 500 mls/hr 12/10/23 07:01 12/10/23 09:11 0.9 % Sodium Chloride 500 Ml IV 12/10/23 08:00 Infused .Q1H ONE Infusion Metoprolol Tartrate 5 mg 12/10/23 08:08 12/10/23 08:50 Metoprolol Tartrate 1 Mg/Ml Inj IVP 12/10/23 08:09 5 mg ONCE ONE Administration Rivaroxaban 20 mg 12/10/23 08:09 12/10/23 08:42 Rivaroxaban 10 Mg Tablet PO 12/10/23 08:10 20 mg ONCE ONE Administration <Heather David MD - Last Filed: 12/16/23 03:23> Discontinued Medications Generic Name Dose Route Start Last Admin Trade Name Freq PRN Reason Stop Dose Admin Aspirin 324 mg 12/10/23 07:01 12/10/23 06:59 Aspirin 81 Mg Tab.Chew PO 12/10/23 07:02 324 mg ONCE ONE Administration Digoxin 250 mcg 12/10/23 08:08 12/10/23 08:43 Digoxin 250 Mcg/Ml Inj IV 12/10/23 08:09 250 mcg ONCE ONE Administration Sodium Chloride 500 mls @ 500 mls/hr 12/10/23 07:01 12/10/23 09:11 0.9 % Sodium Chloride 500 Ml IV 12/10/23 08:00 Infused .Q1H ONE Infusion Metoprolol Tartrate 5 mg 12/10/23 08:08 12/10/23 08:50 Metoprolol Tartrate 1 Mg/Ml Inj IVP 12/10/23 08:09 5 mg ONCE ONE Administration Rivaroxaban 20 mg 12/10/23 08:09 12/10/23 08:42 Rivaroxaban 10 Mg Tablet PO 12/10/23 08:10 20 mg ONCE ONE Administration <Viv Sullivan MD - Last Filed: 12/10/23 09:20> Medical Decision Making Lab Data Lab results reviewed: Yes I reviewed the patient's lab results <Heather David MD - Last Filed: 12/16/23 03:23> Lab results narrative: Normal electrolytes, no anemia. No signs of infection. Mildly elevated liver enzymes is likely secondary to fatty liver. Essentially normal troponins, elevated BNP which is likely secondary to mild heart failure from tachyarrhythmia. <Heather David MD - Last Filed: 12/16/23 03:23> Labs: Lab Results 12/10/23 12/10/23 Range/Units 06:55 07:01 WBC 10.07 (4.50-11.00) K/uL RBC 6.06 H (4.00-5.20) m/uL Hgb 18.4 H (12.0-16.0) gm/dL Hct 54.2 H (33.0-51.0) % MCV 89 (80-100) fL MCH 30 (26-34) pg MCHC 34 (32-36) gm/dL RDW Coeff of Erin 12.2 (11.5-15.5) % Plt Count 165 (140-440) K/uL Neut % (Auto) 71.0 (42.0-72.0) % Lymph % (Auto) 21.2 (20-44) % [place] % (Auto) 5.3 (0.0-11.0) % Eos % (Auto) 1.8 (0.0-7.0) % Baso % (Auto) 0.3 (0.0-3.0) % Neut # (Auto) 7.16 H (1.7-7.0) K/uL Lymph # (Auto) 2.13 (0.90-2.90) K/uL [place] # (Auto) 0.50 (0.00-0.90) K/UL Eos # (Auto) 0.18 (0.00-0.50) K/uL Baso # (Auto) 0.03 (0.00-0.30) K/uL Abs Immat Gran (auto) 0.04 (0.00-0.30) K/uL Imm/Tot Granulo (auto) 0.4 % Sodium 139 (135-149) mmol/L Potassium 4.3 (3.6-5.1) mmol/L Chloride 108 (96-114) mmol/L Carbon Dioxide 22 (20-32) mmol/L Anion Gap 9 (7-15) mEq/L BUN 18 (7-30) mg/dL Creatinine 0.9 (0.5-1.5) mg/dL Estimated Creat Clear 49.12 Estimated GFR 70 ml/min Glucose 126 H (60-115) mg/dL Calcium 8.9 (8.4-10.6) mg/dL Total Bilirubin 0.9 (0.1-1.5) mg/dL AST 39 H (12-35) U/L ALT 79 H (4-35) U/L Alkaline Phosphatase 79 (40-150) U/L Troponin I 0.02 (0.01-0.04) ng/mL NT-Pro-B Natriuret Pep 4860 pg/mL Total Protein 7.6 (6.0-8.3) g/dL Albumin 4.1 (3.3-5.0) g/dL POC Troponin I 0.02 (0.01-0.04) ng/ml <Heather David MD - Last Filed: 12/16/23 03:23> Lab Results 12/10/23 12/10/23 Range/Units 06:55 07:01 WBC 10.07 (4.50-11.00) K/uL RBC 6.06 H (4.00-5.20) m/uL Hgb 18.4 H (12.0-16.0) gm/dL Hct 54.2 H (33.0-51.0) % MCV 89 (80-100) fL MCH 30 (26-34) pg MCHC 34 (32-36) gm/dL RDW Coeff of Erin 12.2 (11.5-15.5) % Plt Count 165 (140-440) K/uL Neut % (Auto) 71.0 (42.0-72.0) % Lymph % (Auto) 21.2 (20-44) % [place] % (Auto) 5.3 (0.0-11.0) % Eos % (Auto) 1.8 (0.0-7.0) % Baso % (Auto) 0.3 (0.0-3.0) % Neut # (Auto) 7.16 H (1.7-7.0) K/uL Lymph # (Auto) 2.13 (0.90-2.90) K/uL [place] # (Auto) 0.50 (0.00-0.90) K/UL Eos # (Auto) 0.18 (0.00-0.50) K/uL Baso # (Auto) 0.03 (0.00-0.30) K/uL Abs Immat Gran (auto) 0.04 (0.00-0.30) K/uL Imm/Tot Granulo (auto) 0.4 % Sodium 139 (135-149) mmol/L Potassium 4.3 (3.6-5.1) mmol/L Chloride 108 (96-114) mmol/L Carbon Dioxide 22 (20-32) mmol/L Anion Gap 9 (7-15) mEq/L BUN 18 (7-30) mg/dL Creatinine 0.9 (0.5-1.5) mg/dL Estimated Creat Clear 49.12 Estimated GFR 70 ml/min Glucose 126 H (60-115) mg/dL Calcium 8.9 (8.4-10.6) mg/dL Total Bilirubin 0.9 (0.1-1.5) mg/dL AST 39 H (12-35) U/L ALT 79 H (4-35) U/L Alkaline Phosphatase 79 (40-150) U/L Troponin I 0.02 (0.01-0.04) ng/mL NT-Pro-B Natriuret Pep 4860 pg/mL Total Protein 7.6 (6.0-8.3) g/dL Albumin 4.1 (3.3-5.0) g/dL POC Troponin I 0.02 (0.01-0.04) ng/ml <Viv Sullivan MD - Last Filed: 12/10/23 09:20> Imaging Data Chest x-ray: Attestation: I have reviewed the pertinent imaging results. <Heather David MD - Last Filed: 12/16/23 03:23> My impression: mild CHF <Heather David MD - Last Filed: 12/16/23 03:23> Radiologist's impression: IMPRESSION: Upper lobe pulmonary venous diversion consistent with mild congestive heart failure. <Heather David MD - Last Filed: 12/16/23 03:23> ECG Data Attestation: I personally reviewed and interpreted this ECG as follows: <Heather David MD - Last Filed: 12/16/23 03:23> Prior ECG tracings: not available for review <Heather David MD - Last Filed: 12/16/23 03:23> Interpretation: Atrial flutter, 2-1 conduction with a rate of 150. A few PVCs are present. No obvious ischemic changes. <Heather David MD - Last Filed: 12/16/23 03:23> Discharge Plan Discharge Clinical Impression: Atrial flutter Qualifiers: Atrial flutter type: unspecified Qualified Code(s): I48.92 - Unspecified atrial flutter Congestive heart failure Qualifiers: Heart failure type: unspecified Heart failure chronicity: acute Qualified Code(s): I50.9 - Heart failure, unspecified <Heather David MD - Last Filed: 12/16/23 03:23> Patient Disposition: [facility] <Heather David MD - Last Filed: 12/16/23 03:23> Discharge Location: [facility] <Heather David MD - Last Filed: 12/16/23 03:23> Prescriptions: No Action cholecalciferol (vitamin D3) 125 mcg (5,000 unit) tablet 5,000 unit PO DAILY ibuprofen 200 mg tablet PO Q6-8H PRN triamcinolone acetonide 0.1 % ointment 1 applic topical QDAY Qty: 30 0RF estradiol 0.01 % (0.1 mg/gram) cream 1 appful vaginal QDAY Qty: 42.5 0RF Rx Instructions: for 14 days phenazopyridine [Pyridium] 200 mg tablet 200 mg PO TID Qty: 14 0RF sotalol 80 mg tablet 80 mg PO BID Eliquis 5 mg tablet 5 mg PO BID <Heather David MD - Last Filed: 12/16/23 03:23> Stand Alone Forms: [facility] Info Instructions <Heather David MD - Last Filed: 12/16/23 03:23>
[2023-12-10 07:35] LABS: Albumin* 4.1 g/dL (3.3-5.0); Chloride* 108 mmol/L (96-114)
[2023-12-10 07:36] LABS: Potassium* 4.3 mmol/L (3.6-5.1); Sodium* 139 mmol/L (135-149)
[2023-12-10 07:38] LABS: Anion Gap 9 mEq/L (7-15); Bilirubin Total* 0.9 mg/dL (0.1-1.5); Carbon Dioxide* 22 mmol/L (20-32); Creatinine* 0.9 mg/dL (0.5-1.5); Est. Creatinine Clearance* 49.12; Estimated Glomerular Filt Rate 70 ml/min
[2023-12-10 07:39] LABS: Alanine Aminotransferase* 79 U/L (4-35); Alkaline Phosphatase* 79 U/L (40-150); Aspartate Amino Transferase* 39 U/L (12-35); Blood Urea Nitrogen* 18 mg/dL (7-30); Calcium* 8.9 mg/dL (8.4-10.6); Glucose* 126 mg/dL (60-115); Total Protein* 7.6 g/dL (6.0-8.3)
[2023-12-10 07:51] LABS: NT Pro B Type NatriureticPept* 4860 pg/mL; Troponin I* 0.02 ng/mL (0.01-0.04)
[2023-12-10] MEDS: RIVAROXABAN 10 MG TABLET 20 MG PO (08:42)
[2023-12-10] MEDS: DIGOXIN 250 MCG/ML inj IV (08:43)
[2023-12-10] MEDS: METOPROLOL TARTRATE 1 MG/ML inj 5 MG IVP (08:50)
== END 2023-12-10 10:34 | disposition short-term general hospital (02) ==
PROVIDERS: Emergency Provider Family Medicine; PCP Internal Medicine
DX: I48.92 Unspecified atrial flutter (principal)
CPT/HCPCS: 36415; 71046; 80053; 83880; 84484; 85025; 96374; 99284; 99285; A9270; J1160; J7030

== ENCOUNTER 2023-12-10 10:10 | Outpatient (CLI) | payer MEDICARE, BC, SELFPAY ==
--- OUTSIDE RECORDS SUMMARY | 2023-12-11 17:24 | XMS_ITS | Clinical Summary ---
Author Name Unknown Organization [employer] [facility] [facility] Address [place], [place] [address] Care Team Providers Care Spark Tester Name Role Phone Pcp, No Primary Care Provider Unavailabl e Allergies Active Allergy Reactions Criticality Noted Date Comments Iodinated Contrast Media Hives 04/02/2011 Not certain which type of dye - possible gadolinium reaction. Patient tolerated Isoview 300 IV bolus for 11/2017 CT scan without problem. Signed Electronically: Lee Middleton M.D. ??. . . 12:09 PM 12/16/2017 Erythromycin Rash 08/25/2007 Oxycodone Rash 06/16/2018 Medications Medication Sig Dispensed Refills Start Date End Date Status apixaban (ELIQUIS) 5 mg tabletIndications :atrial flutter Take 1 Tablet (5 mg) by mouth two times daily. 180 Tablet 3 12/11/2023 Active sotaloL (BETAPACE) 80 mg tabletIndications :PVC's (premature ventricular contractions),Per sistent atrial fibrillation (HC) Take 1 Tablet (80 mg) by mouth every 12 hours. 180 Tablet 1 12/11/2023 Active oxyCODONE-acetami nophen, 5-325 mg, (PERCOCET) per tablet Take 1 to 2 tablets orally every 4-6 hours as needed for pain. Max acetaminophen dose: 4000mg in 24 hrs. 0 08/27/2012 4 Discontinu ed(*Patien t states no longer taking) cyclobenzaprine (FLEXERIL) 10 mg tablet Take 1 tablet by mouth every 8 hours if needed for Muscle Spasm. 30 tablet 0 08/28/2012 Discontinu ed(*Patien t states no longer taking) Active Problems Problem Noted Date Diagnosed Date PFO (patent foramen ovale) 12/11/2023 CHF (congestive heart failure) 12/10/2023 Pulmonary edema 12/10/2023 Atrial flutter with rapid ventricular response 0 12/10/2023 Morbid obesity 03/26/2018 Fatty liver 03/26/2018 Impaired fasting glucose 03/26/2018 Elevated rheumatoid factor 03/19/2018 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 03/18/2018 Neck pain 03/18/2018 Herniated lumbar intervertebral disc 12/19/2017 Overview: Overview: Overview: L3-4 with L 3 radiculopathy, L4-5 radiculopathy Rectal bleeding 09/26/2009 Osteoarthritis of Knees 05/25/2009 Shoulder impingement syndrome 05/22/2009 Displacement of intervertebr al disc, site unspecified, without myelopathy Overview: L3-4 with L 3 radiculopathy, L4-5 radiculopathy Resolved Problems Problem Noted Date Diagnosed Date Resolved Date senior care (current) use of anticoagulants 04/15/2011 05/03/2011 Encounters Date Type Department Care Team Description 12/11/2023 9:16 AM CDT Anesthesia Event [facility] [address] [place] [address] Jeimy Kim MD 12/10/2023 11:26 AM CDT - 12/11/2023 5:11 PM CDT Hospital Encounter [facility] [address] [place] [address] [facility] [place] Lilo Barnes MD Residents, B2 Atrial flutter with rapid ventricular response (HC) (Primary Dx); PVC's (premature ventricular contractions); Persistent atrial fibrillation (HC) Discharge Disposition: Home Self Care 12/10/2023 Travel 12/10/2023 Telephone [facility] [place] [address] [facility] [address] [place] [phone] Quique Garcia MD Fast Heartbeat (and CHF) from Last 3 Months Immunizations Name Administration Dates Next Due COVID-19 vaccine (Moderna 100mcg/0.5mL) PF, MDV 10/06/2020 Influenza Virus, Unspecified 03/18/2018(Deferred : Patient Refused) Influenza, IIV4 03/18/2018 TD, UNSPECIFIED 03/07/2005 Td (Age >=7 Years) 03/07/2005 Td, Preservative Free (age >= 7 Years) 5 Tdap 10/13/2014 Family History Medical History Relation Name Comments Diabetes Mother Hyperlipidemia Mother Relation Name Status Comments Mother Social History Tobacco Use Types Packs/Day Years Used Date Smoking Tobacco: Former Cigarettes Q uit: 07/28/1993 Smokeless Tobacco: Never Alcohol Use Standard Drinks/Week Comments No 0 (1 standard drink = 0.6 oz pur e alcohol) Social Connections Answer Date Recorded Frequency of Communication with Friends and Fami ly 0 12/10/2023 Financial Resource Strain Answer Date R ecorded Difficulty of Paying Living Expenses 3 12/10/2023 Difficulty of Paying Living Expenses Not on file 12/10/2023 Food Insecurity Answer Date Recorded Worried About Running Out of Food in the Last Ye ar 1 12/10/2023 Transportation Needs Answer Date Record ed Lack of Transportation (Medical) 1 12/10/2023 Housing Stability Answer Date Recorded Unable to Pay for Housing in the Last Year 1 12/10/2023 Sex and Gender Information Value Date Recorded Sex Assigned at Not on file Gender Identity Not on file Sexual Orientation Not on file Obstetrics History Last Filed Vital Signs Vital Sign Reading Time Taken Comments Blood Pressure 137/64 12/11/2023 1:45 PM CDT Pulse 72 12/11/2023 3:45 PM CDT Temperature 36.9 ??C (98.4 ??F) 12/10/2023 1 1:26 PM CDT Respiratory Rate 17 12/11/2023 10:0 1 AM CDT Oxygen Saturation 92% 12/11/2023 12: 10 PM CDT Inhaled Oxygen Concentration - - Weight 114.7 kg (252 lb 13.9 oz) 12/11/2023 6:00 AM CDT Height 162.6 cm (5' 4) 04/02/2011 12:0 5 PM CDT Body Mass Index - - Plan of Treatment Health Maintenance Due Date Last Done Comments Depression screening for age 12+ 1968 BMI (ht and wt on same day) for age 18+ 1974 Hepatitis C screening for ag e 18-79 1974 Zoster (shingles) series for age 50+ (1 of 2) 2006 Mammogram for age 45-75 02/22/2015 02/22/2014, 04/21 Colonoscopy through age 75 08/28/2015 08/28/2005 DEXA/DXA scan for age 65+ 2021 Pneumococcal series for age 65+ (1 of 1 - PCV) 2021 COVID-19 vaccine series (4 - 2022-24 season) 2023 08/21/2021, 11/03/2020, 10/06/2020 Influenza for age 65+ 03/28/2024 03/18/2018 Tetanus booster 10/13/2024 10/13/2014, 02/25, 03/07/2005, Additional history exists Lipids for age 45-75 12/09/2028 12/10/2023, 05/10/20 10 Tdap Completed 10/13/2014 Procedures Procedure Name Priority Date/Time Associated Diagnosis Comments ECHO TTE LIMITED WO CONTRAST W COLOR W LTD DOPPLER KATHERINE 12/11/2023 2:30 PM CDT SCAN-CARDIAC STRIP 12/11/2023 1: 05 PM CDT ECHO ANA WO CONTRAST W COLOR W LTD DOPPLER Routine 12/11/2023 9:36 AM CDT EKG 12 LEAD Preop 12/11/2023 6:10 AM CDT T4,FREE KATHERINE 12/11/2023 2:13 AM CDT MAGNESIUM STAT 12/11/2023 2:13 AM CDT SCAN-CARDIAC STRIP 12/11/2023 1: 54 AM CDT SCAN-CARDIAC STRIP 12/11/2023 1: 21 AM CDT EKG 12 LEAD STAT 12/11/2023 12:20 AM CDT TSH KATHERINE 12/10/2023 3:48 PM CDT LIPID PANEL KATHERINE 12/10/2023 3:48 PM CDT BASIC METABOLIC PANEL Timed 12/10/2023 3:48 PM CDT HEMOGLOBIN A1C SCREENING KATHERINE 12/10/2023 3:47 PM CDT CBC W PLT NO DIFF Today 12/10/2023 3:4 7 PM CDT SCAN CORRESP-EKG RESULTS 12/10/2023 1:17 PM CDT SCAN CORRESP-IMAGING 12/10/2023 1:17 PM CDT SCAN-MAMMOGRAPHY REPORT 02/22/2014 12:00 AM CDT from Last 3 Months or Most Recently Relevant to Health Maintenance Results * ECHO TTE LIMITED WO CONTRAST W COLOR W LTD DOPPLER (12/11/2023 2:30 PM CDT) LVEDD 5.0 cm EJECTION FRACTION 55 - 60% Anatomical Region Laterality Modality Ultrasound 12/11/2023 1:09 PM CDT Narrative 12/11/2023 4:23 PM CDT ECHOCARDIOGRAM KERRY SORIA ? Accession#: ?? [id number] : ?1955 68 years Study Date: ?? 12/11/2023 1:09:34 PM Gender: F ?BP: ? 121/62 mmHg Height: 162.00 cm ?BSA: ?2.15 m? ? ? Weight: 114.00 kg ?Tech: ? OLL/CM ? Referring MD: DARRELL BAKER Site: ? [facility] Reading Location: [facility] Patient Location: Inpatient. Procedure: Limited Spectral Doppler, Color Doppler and Limited 2D. Indication for study: Aflutter Cardiac Rhythm: Normal sinus and with premature ventricular contractions.Study quality: Fair. Final Impressions: Limited Echocardiogram performed 1. Ventricular bigeminy during the study. 2. Normal LV size, moderately increased wall thickness (not well visualized), normal global systolic function with an estimated EF of ~~55%. 3. Right ventricular cavity size is normal, global systolic RV function is moderately reduced. 4. The aortic valve is sclerotic, no stenosis and trivial regurgitation. 5. The mitral valve is sclerotic, mild mitral regurgitation. Chamber Sizes and Function Normal left ventricular size, moderately increased wall thickness, normal global systolic function with an estimated EF of 55 - 60%. Left ventricular wall motion not well visualized. Right ventricular cavity size is normal, global systolic RV function is moderately reduced. Valves, RV Pressures and Diastolic Function The aortic valve is sclerotic, no stenosis and trivial regurgitation. The mitral valve is sclerotic, mild mitral regurgitation. The tricuspid valve is normal in structure. Tricuspid regurgitation is trace. Masses, Effusion, Shunts There is no pericardial effusion. There is a significant pericardial fat pad present. The inferior vena cava is not well visualized, respiratory size variation not well visualized. MEASUREMENTS AND CALCULATIONS 2-D Measurements and LV Function: LVID (d) 5.0 cm LV FS% (2D) ?? 28 % LVID (s) 3.6 cm LVOT diameter 2.1 cm IVS (d) ??1.4 cm HR ?84 bpm LVPW (d) 1.1 cm . This study was interpreted by an [facility] accredited facility. ??Final ?? Procedure Note Sushant Zee MD - 12/11/2023 ECHOCARDIOGRAM KERRY SORIA : 1955 68 years Study Date: 12/11/2023 1:09:34 PM Gender: F BP: 121/62 mmHg Height: 162.00 cm BSA: 2.15 m? ? ? Weight: 114.00 kg Tech: OLL/CM Referring MD: DARRELL BAKER Site: [facility] Reading Location: [facility] Patient Location: Inpatient. Procedure: Limited Spectral Doppler, Color Doppler and Limited 2D. Indication for study: Aflutter Cardiac Rhythm: Normal sinus and with premature ventricularcontractions.Study quality: Fair. Final Impressions: Limited Echocardiogram performed 1. Ventricular bigeminy during the study. 2. Normal LV size, moderately increased wall thickness (not wellvisualized), normal global systolic function with an estimated EF of~~55%. 3. Right ventricular cavity size is normal, global systolic RV functionis moderately reduced. 4. The aortic valve is sclerotic, no stenosis and trivialregurgitation. 5. The mitral valve is sclerotic, mild mitral regurgitation. Chamber Sizes and Function Normal left ventricular size, moderately increased wall thickness, normalglobal systolic function with an estimated EF of 55 - 60%. Leftventricular wall motion not well visualized. Right ventricular cavity sizeis normal, global systolic RV function is moderately reduced. Valves, RV Pressures and Diastolic Function The aortic valve is sclerotic, no stenosis and trivial regurgitation. Themitral valve is sclerotic, mild mitral regurgitation. The tricuspid valveis normal in structure. Tricuspid regurgitation is trace. Masses, Effusion, Shunts There is no pericardial effusion. There is a significant pericardial fatpad present. The inferior vena cava is not well visualized, respiratorysize variation not well visualized. MEASUREMENTS AND CALCULATIONS 2-D Measurements and LV Function: LVID (d) 5.0 cm LV FS% (2D) 28 % LVID (s) 3.6 cm LVOT diameter 2.1 cm IVS (d) 1.4 cm HR 84 bpm LVPW (d) 1.1 cm . This study was interpreted by an [facility] accredited facility. Final Darrell Baker MD ECHO ORD * SCAN-CARDIAC STRIP (12/11/2023 1:05 PM CDT) Scanner OTHER * ECHO ANA WO CONTRAST W COLOR W LTD DOPPLER (12/11/2023 9:36 AM CDT) Anatomical Region Laterality Modality Ultrasound 12/11/2023 7:57 AM CDT Narrative 12/11/2023 9:40 AM CDT TRANSESOPHAGEAL ECHOCARDIOGRAM KERRY SORIA ? Accession#: ?? [id number] : ?1955 68 years Study Date: ?? 12/11/2023 7:57:19 AM Gender: F ?BP: ? 138/79 mmHg Height: 163.00 cm ?BSA: ?2.17 m? ? ? Weight: 115.00 kg ?Tech: ? Dr Del Real ? Referring MD: OMID LOCK Site: ? [facility] Reading Location: Patient Location: Inpatient. Procedure: 2D, ANA, Color Doppler and Spectral Doppler. Indication for study: DCCV Cardiac Rhythm: Atrial fibrillation.Study quality: Fair. Final Impressions: 1. Normal left ventricular size, mildly decreased global systolic function. 2. Right ventricular cavity size is normal, global systolic RV function is mildly reduced. 3. Mildly enlarged left atrium. 4. No evidence of thrombus present in the left atrial appendage. 5. PFO present. Procedure comments: Indications, goals, risks and alternatives of the procedure were discussed with the patient and informed consent was obtained. The patient received sedation of intravenous Propofol . See procedural record for anesthesia details. Prior to performance of procedure, time out was called to accurately identify the patient and procedure. The Echo probe was passed without difficulty. 2D, ANA, Color Doppler and Spectral Doppler was performed. The patient developed no apparent complications during the procedure. Estimated Blood Loss: 0 ml Chamber Sizes and Function Normal left ventricular size, mildly decreased global systolic function. Left atrial size is mildly enlarged. The left atrial appendage is well visualized and there is no evidence of thrombus present. Normal left atrial appendage flow velocities. Right ventricular cavity size is normal, global systolic RV function is mildly reduced. The right atrium is mildly enlarged. The pulmonary artery is not well visualized. The sinus of Valsalva is normal sized. The ascending aorta is normal sized. Aortic arch is normal sized. Descending aorta is normal sized. Valves, RV Pressures and Diastolic Function The aortic valve is trileaflet and small mobile densities attached to the aortic valve, likely lambl's excresence, no stenosis and trivial regurgitation. The mitral valve is normal in structure, trace mitral regurgitation. The tricuspid valve is normal in structure. Tricuspid regurgitation is trace regurgitation. The pulmonic valve is normal. Trace pulmonary regurgitation. Masses, Effusion, Shunts There is no pericardial effusion. PFO present. Agitated saline injection not done. MEASUREMENTS AND CALCULATIONS 2-D Measurements and LV Function: HR 137 bpm . This study was interpreted by an [facility] accredited facility. ??Final ?? Procedure Note Rikki Del Real MD - 12/11/2023 TRANSESOPHAGEAL ECHOCARDIOGRAM KERRY SORIA : 1955 68 years Study Date: 12/11/2023 7:57:19 AM Gender: F BP: 138/79 mmHg Height: 163.00 cm BSA: 2.17 m? ? ? Weight: 115.00 kg Tech: Dr Del Real Referring MD: OMID LOCK Site: [facility] Reading Location: Patient Location: Inpatient. Procedure: 2D, ANA, Color Doppler and Spectral Doppler. Indication for study: DCCV Cardiac Rhythm: Atrial fibrillation.Study quality: Fair. Final Impressions: 1. Normal left ventricular size, mildly decreased global systolicfunction. 2. Right ventricular cavity size is normal, global systolic RV functionis mildly reduced. 3. Mildly enlarged left atrium. 4. No evidence of thrombus present in the left atrial appendage. 5. PFO present. Procedure comments: Indications, goals, risks and alternatives of theprocedure were discussed with the patient and informed consent wasobtained. The patient received sedation of intravenous Propofol . Seeprocedural record for anesthesia details. Prior to performance ofprocedure, time out was called to accurately identify the patient andprocedure. The Echo probe was passed without difficulty. 2D, ANA, ColorDoppler and Spectral Doppler was performed. The patient developed noapparent complications during the procedure. Estimated Blood Loss: 0 ml Chamber Sizes and Function Normal left ventricular size, mildly decreased global systolic function.Left atrial size is mildly enlarged. The left atrial appendage is wellvisualized and there is no evidence of thrombus present. Normal leftatrial appendage flow velocities. Right ventricular cavity size is normal,global systolic RV function is mildly reduced. The right atrium is mildlyenlarged. The pulmonary artery is not well visualized. The sinus ofValsalva is normal sized. The ascending aorta is normal sized. Aortic archis normal sized. Descending aorta is normal sized. Valves, RV Pressures and Diastolic Function The aortic valve is trileaflet and small mobile densities attached to theaortic valve, likely lambl's excresence, no stenosis and trivialregurgitation. The mitral valve is normal in structure, trace mitralregurgitation. The tricuspid valve is normal in structure. Tricuspidregurgitation is trace regurgitation. The pulmonic valve is normal. Tracepulmonary regurgitation. Masses, Effusion, Shunts There is no pericardial effusion. PFO present. Agitated saline injectionnot done. MEASUREMENTS AND CALCULATIONS 2-D Measurements and LV Function: HR 137 bpm . This study was interpreted by an [facility] accredited facility. Final Omid Lock NP ECHO ORD * T4,FREE (12/11/2023 2:13 AM CDT) T4,FREE 1.28 0.93 - 1.70 ng/dL 12/11/2023 7:59 AM CDT [facility] Blood BLOOD SPECIMEN / Unknown Butterfly / Unknown 12/11/2023 2:13 AM CDT 12/11/2023 2:24 AM CDT Herminio King MD CHEMISTRY [facility] [address] [address], [place] * MAGNESIUM (12/11/2023 2:13 AM CDT) MAGNESIUM 1.9 1.6 - 2.4 mg/dL 12/11/2023 2:44 AM CDT [facility] Blood BLOOD SPECIMEN / Unknown Butterfly / Unknown 12/11/2023 2:13 AM CDT 12/11/2023 2:24 AM CDT Yvette Marlow MD CHEMISTRY Performing Organization Address [facility] Co de Phone Number [facility] [address] [address], [place] * SCAN-CARDIAC STRIP (12/11/2023 1:54 AM CDT) Scanner OTHER * SCAN-CARDIAC STRIP (12/11/2023 1:21 AM CDT) Scanner OTHER * (ABNORMAL) TSH FOR ADD ON (12/10/2023 3:48 PM CDT) TSH 5.15(H) 0.27 - 4.20 uIU/mL 12/10/2023 4:50 PM CDT [facility] Blood BLOOD SPECIMEN / Unknown Venipuncture / Unknown 12/10/2023 3:48 PM CDT 12/10/2023 3:54 PM CDT Narrative [facility] - 12/10/2023 4:50 PM CDT In Adults, TSH values between 5.00 and 10.00 uIU/ml do not necessarily indicate the presence of Hypothyroidism. Correlation with clinical findings such as presence of goiter and/or Thyroperoxidase (TPO) Antibody may be helpful. For more information please refer to JOSE MARIA 2004; 291: [phone]. Herminio King MD CHEMISTRY Performing Organization Address [facility]/ZIP Co de Phone Number [facility] [address] [address], [place] * (ABNORMAL) Lipid Panel AM (12/10/2023 3:48 PM CDT) CHOLESTEROL,TOTAL 162 100 - 199 mg/dL 12/10/2023 4:50 PM CDT [facility] Comment: Cholesterol, Total Reference Ranges Desirable <200 mg/dL Borderline 200-239 mg/dL High >=240 mg/dL TRIGLYCERIDES 134 <150 mg/dL 12/10/2023 4:50 PM CDT [facility] HDL CHOLESTEROL 30(L) >40 mg/dL 4:50 PM CDT [facility] NON-HDL CHOLESTEROL 132 <145 mg/dl 12/10/2023 4:50 PM CDT [facility] CHOL/HDL RATIO 5.40(H) <4.50 12/10/2023 4:50 PM CDT [facility] LDL CHOLESTEROL 105 <=130 mg/dL 12/10/2023 4:50 PM CDT [facility] VLDL CHOLESTEROL 27 <=30 mg/dL 12/10/2023 4:50 PM CDT [facility] Blood BLOOD SPECIMEN / Unknown Venipuncture / Unknown 12/10/2023 3:48 PM CDT 12/10/2023 3:54 PM CDT Herminio King MD CHEMISTRY [facility] [address] [place] [address], [place] * (ABNORMAL) Basic metabolic panel TODAY (12/10/2023 3:48 PM CDT) SODIUM 140 136 - 145 mmol/L 12/10/2023 4:18 PM CDT [facility] POTASSIUM 4.7 3.5 - 5.1 mmol/L 12/10/2023 4:18 PM CDT [facility] CHLORIDE 107 98 - 107 mmol/L 12/10/2023 4:18 PM CDT [facility] CO2,TOTAL 23 22 - 29 mmol/L 12/10/2023 4:18 PM CDT [facility] ANION GAP 10 5 - 18 12/10/2023 4:18 PM CDT [facility] GLUCOSE 110(H) 70 - 99 mg/dL 12/10/2023 4:18 PM CDT [facility] CALCIUM 8.8 8.8 - 10.2 mg/dL 12/10/2023 4:18 PM CDT [facility] BUN 13 8 - 23 mg/dL 12/10/2023 4:18 PM CDT [facility] CREATININE 0.92(H) 0.50 - 0.90 mg/dL 12/10/2023 4:18 PM CDT [facility] BUN/CREAT RATIO 14 10 - 20 4:18 PM CDT [facility] eGFR 68(L) >90 mL/min/1.7 3m2 12/10/2023 4:18 PM CDT [facility] Comment:As of 2021, eG FR is calculated by the CKD-EPI creatinine equation without race adjustment. ??eGFR can be influenced by muscle mass, exercise, and diet. ??The reported eGFR is an estimation only and is only applicable if the renal function is stable. Blood BLOOD SPECIMEN / Unknown Venipuncture / Unknown 12/10/2023 3:48 PM CDT 12/10/2023 3:54 PM CDT Darrell Baker MD [facility] [address] [place] [address], * Screening hemoglobin A1c FOR ADD ON (12/10/2023 3:47 PM CDT) HEMOGLOBIN A1C SCREENING 6.1 <=6.4 % 12/10/2023 5:49 PM CDT [facility] Blood BLOOD SPECIMEN / Unknown Venipuncture / Unknown 12/10/2023 3:47 PM CDT 12/10/2023 3:54 PM CDT Narrative [facility] - 12/10/2023 5:49 PM CDT ? (<5.7%) ?Normal ? (5.7% to 6.4%) ? Indicates prediabetes ? (>=6.5%) ? Confirms diabetes Falsely low levels may be seen with: Recent Transfusion, Recent Significant Blood Loss, Hemolytic Diseases, or Falsely elevated levels may be seen with: Untreated Anemias, Splenectomy Herminio King MD CHEMISTRY [facility] [address] [place] [address], * CBC no diff TODAY (12/10/2023 3:47 PM CDT) WHITE BLOOD COUNT 8.9 4.5 - 11.0 thou/cu mm 12/10/2023 4:03 PM CDT [facility] RED BLOOD COUNT 4.63 4.00 - 5.20 mil/cu mm 12/10/2023 4:03 PM CDT [facility] HEMOGLOBIN 14.5 12.0 - 16.0 g/dL 12/10/2023 4:03 PM CDT [facility] HEMATOCRIT 41.6 33.0 - 51.0 % 12/10/2023 4:03 PM CDT [facility] MCV 90 80 - 100 fL 12/10/2023 4:03 PM CDT [facility] MCH 31.3 26.0 - 34.0 pg 12/10/2023 4:03 PM CDT [facility] MCHC 34.9 32.0 - 36.0 g/dL 12/10/2023 4:03 PM CDT [facility] RDW 12.6 11.5 - 15.5 % 12/10/2023 4:03 PM CDT [facility] PLATELET COUNT 208 140 - 440 thou/cu mm 12/10/2023 4:03 PM CDT [facility] MPV 10.6 6.5 - 11.0 fL 12/10/2023 4:03 PM CDT [facility] NRBC 0.0 % 12/10/2023 4:03 PM CDT [facility] ABS NRBC 0.0 thou /cu mm 12/10/2023 4:03 PM CDT [facility] Blood BLOOD SPECIMEN / Unknown Venipuncture / Unknown 12/10/2023 3:47 PM CDT 12/10/2023 3:54 PM CDT Darrell Baker MD HEMATOLOGY [facility] [address] [place] [address], * SCAN CORRESP-EKG RESULTS (12/10/2023 1:17 PM CDT) Narrative 12/10/2023 1:17 PM CDT Ordered by an unspecified provider. Other Clinical Staff OTHER * SCAN CORRESP-IMAGING (12/10/2023 1:17 PM CDT) Anatomical Region Laterality Modality Other Narrative 12/10/2023 1:17 PM CDT Ordered by an unspecified provider. Other Clinical Staff OTHER * SCAN-MAMMOGRAPHY REPORT (02/22/2014 12:00 AM CDT) Anatomical Region Laterality Modality Other Narrative 02/23/2014 11:06 AM CDT Procedure Note Scanner - 02/22/2014 12:00 AM CDT Scanner OTHER from Last 3 Months or Most Recently Relevant to Health Maintenance Advance Directives * Full Code (Latest Code Status on File) Date Activated Date Inactivated Comments 12/10/2023 12:49 PM Question Answer Comments Code Status Discussion: Reviewed Preferences Care Teams Spark Tester Relationship Specialty Start Date End Date Pcp, No . PCP - General 02/06/23
== END 2023-12-10 10:11 | disposition home or self-care (01) ==
LOC: AMB 12-11 17:22
PROVIDERS: PCP Internal Medicine; Visit Provider Family Medicine
DX: I48.91 Unspecified atrial fibrillation (principal)
CPT/HCPCS: A0425; A0427

== ENCOUNTER 2023-12-14 14:35 | Emergency (ER) | payer MEDICARE, BC, SELFPAY ==
[2023-12-14] VITALS (10 sets, daily range): BP systolic 110–169; BP diastolic 51–94; PULSE 33–45; RESP 18; TEMP 36.9; O2SAT 93–95; BMI 38.3
--- NOTE | 2023-12-14 14:47 | XR_ITS ---
Patient: KERRY SORIA Facility:?[facility] Patient ID:?[id number] Site Patient ID:?[id number]. Site :?1955 Study:?XRay-Chest 2 VIEW-12/14/2023 3:44:23 PM Ordering Physician:CHERYL Final Report: INDICATION: Dyspnea. TECHNIQUE: Chest 2 views. COMPARISON: December 10, 2023. FINDINGS: Cardiovascular and mediastinum: Heart size and vasculature are normal in caliber and appearance. Lungs and pleural spaces: Lungs are clear. No sign of infiltrate or mass. No sign of pleural effusion. No pneumothorax. Bones and soft tissues: No significant findings. IMPRESSION: No acute or significant findings. Dictated by David Fallon MD @ 12/14/2023 4:08:20 PM Signed by:?David Fallon MD @12/14/2023 4:08:20 PM (Electronic Signature)
[2023-12-14 15:40] LABS: Basophils Absolute Auto 0.02 K/uL (0.00-0.30); Basophils Percent Auto 0.2 % (0.0-3.0); Eosinophils Absolute Auto 0.19 K/uL (0.00-0.50); Eosinophils Percent Auto 1.8 % (0.0-7.0); Hematocrit 43.1 % (33.0-51.0); Hemoglobin* 14.3 gm/dL (12.0-16.0); Immature Granulocytes Abs Auto 0.03 K/uL (0.00-0.30); Immature Granulocytes Pct Auto 0.3 %; Lymphocytes Absolute Auto 2.59 K/uL (0.90-2.90); Lymphocytes Percent Auto 24.2 % (20-44); Mean Corpuscular HGB Conc 33 gm/dL (32-36); Mean Corpuscular Hemoglobin 31 pg (26-34); Mean Corpuscular Volume 92 fL (80-100); Monocytes Percent Auto 5.5 % (0.0-11.0); Neutrophils Absolute Auto 7.27 K/uL (1.7-7.0); Platelet Count* 239 K/uL (140-440); RDW Coefficient of Variation % 12.3 % (11.5-15.5); Red Blood Count 4.69 m/uL (4.00-5.20); White Blood Count* 10.69 K/uL (4.50-11.00)
[2023-12-14 15:45] LABS: Slide Review Reflex No
--- OUTSIDE RECORDS SUMMARY | 2023-12-14 15:48 | XMS_ITS | Clinical Summary ---
Author Name Unknown Organization [facility] [facility] Address [place], [place] [address] Care Team Providers Care Poker Machine Attendant Name Role Phone Pcp, No Primary Care [...] Problem Noted Date Diagnosed Date Resolved Date prison (current) use of anticoagulants 04/15/2011 05/03/2011 Encounters Date Type Department Care Team Description 12/11/2023 9:16 AM CDT Anesthesia Event [facility] [address] [place] [address] Jeimy Kim MD 12/10/2023 11:26 AM CDT - 12/11/2023 5:11 PM CDT Hospital Encounter [facility] [address] [place] [address] [facility] Lilo Barnes MD Residents, B2 Atrial flutter with rapid ventricular response (HC) (Primary Dx); PVC's (premature ventricular contractions); Persistent atrial fibrillation (HC) Discharge Disposition: Home Self Care 12/10/2023 Travel 12/10/2023 Telephone [facility] [address] [facility] [address] [place] [phone] Quique Garcia MD Fast Heartbeat (and CHF) [...] 1 - PCV) 2021 COVID-19 vaccine series (2022-24 season) 2023 08/21/2021, 11/03/2020, 10/06/2020 Influenza for [...] 12/11/2023 9:36 AM CDT EKG 12 LEAD Routine 12/11/2023 9:33 AM CDT EKG 12 LEAD Preop 12/11/2023 [...] DIFF Today 12/10/2023 3:4 7 PM CDT EKG 12 LEAD STAT 12/10/2023 1:32 PM CDT SCAN CORRESP-EKG RESULTS 12/10/2023 1:17 [...] CDT ECHOCARDIOGRAM KERRY SORIA ? Accession#: ?? [id number] : ?1955 68 years Study Date: ?? 12/11/2023 1:09:34 PM Gender: F ?BP: ? 121/62 mmHg Height: 162.00 cm ?BSA: ?2.15 m? ? ? Weight: 114.00 kg ?Tech: ? OLL/CM ? Referring MD: DARRELL BAKER Site: ? [facility] Reading Location: AN IP Patient Location: Inpatient. Procedure: Limited Spectral Doppler, [...] . This study was interpreted by an [facility] accredited facility. ??Final ?? Procedure Note Sushant Zee MD - 12/11/2023 ECHOCARDIOGRAM KERRY SORIA : 1955 68 years Study Date: 12/11/2023 1:09:34 PM Gender: F BP: 121/62 mmHg Height: 162.00 cm BSA: 2.15 m? ? ? Weight: 114.00 kg Tech: OLL/CM Referring MD: DARRELL BAKER Site: [facility] Reading Location: ANW IP Patient Location: Inpatient. Procedure: Limited Spectral Doppler, [...] . This study was interpreted by an [facility] accredited facility. Final Darrell Baker MD ECHO ORD * SCAN-CARDIAC STRIP (12/11/2023 1:05 PM CDT) Scanner OTHER * ECHO ANA WO CONTRAST W COLOR W LTD DOPPLER (12/11/2023 9:36 AM CDT) Anatomical Region Laterality Modality Ultrasound 12/11/2023 7:57 AM CDT Narrative 12/11/2023 9:40 AM CDT TRANSESOPHAGEAL ECHOCARDIOGRAM KERRY SORIA ? Accession#: ?? [id number] : ?1955 68 years Study Date: ?? 12/11/2023 7:57:19 AM Gender: F ?BP: ? 138/79 mmHg Height: 163.00 cm ?BSA: ?2.17 m? ? ? Weight: 115.00 kg ?Tech: ? Dr Del Real ? Referring MD: OMID LOCK Site: ? [facility] Reading Location: Patient Location: Inpatient. Procedure: 2D, [...] . This study was interpreted by an [facility] accredited facility. ??Final ?? Procedure Note Rikki Del Real MD - 12/11/2023 TRANSESOPHAGEAL ECHOCARDIOGRAM KERRY SORIA : 1955 68 years Study Date: 12/11/2023 7:57:19 AM Gender: F BP: 138/79 mmHg Height: 163.00 cm BSA: 2.17 m? ? ? Weight: 115.00 kg Tech: Dr Del Real Referring MD: OMID LOCK Site: [facility] Reading Location: Patient Location: Inpatient. Procedure: 2D, [...] . This study was interpreted by an [facility] accredited facility. Final Omid Lock NP ECHO ORD * EKG 12 LEAD (12/11/2023 9:33 AM CDT) Only the most recent of4 resultswithin the time period is included. Interpretation Sinus rhythm with frequent and consecutive Premature ventricular complexes Possible Left atrial enlargement Minimal voltage criteria for LVH, may be normal variant ( Oracio product ) Cannot rule out Anterior infarct , age undetermined T wave abnormality, consider lateral ischemia Abnormal ECG When compared with ECG of 11-DEC-2023 06:10, Sinus rhythm has replaced Atrial fibrillation BEYOND NOW Ventricular Rate 83 BPM BEYOND NOW Atrial Rate 83 BPM BEYOND NOW P-R Interval 170 ms BEYOND NOW QRS Duration 96 ms BEYOND NOW QT 402 ms BEYOND NOW QTc 472 ms BEYOND NOW P [place] 31 degrees BEYOND NOW R [place] -27 degrees BEYOND NOW T [place] 105 degrees BEYOND NOW 12/11/2023 9:33 AM CDT 12/11/2023 8:27 PM CDT Narrative BEYOND NOW - 12/11/2023 8:27 PM CDT Test Indication: POST CARDIO Rikki De lReal MD EKG ORD Performing Organization Address City/[facility]/ZIP Co de Phone Number BEYOND NOW [place], [place] * T4,FREE (12/11/2023 2:13 AM CDT) T4,FREE 1.28 0.93 - 1.70 ng/dL 12/11/2023 7:59 AM CDT [facility] Blood BLOOD SPECIMEN / Unknown Butterfly / Unknown 12/11/2023 2:13 AM CDT 12/11/2023 2:24 AM CDT Herminio King MD CHEMISTRY Performing Organization Address City/[facility]/ZIP Co de Phone Number [facility] [address] [place] [address] * MAGNESIUM (12/11/2023 2:13 AM CDT) MAGNESIUM 1.9 1.6 - 2.4 mg/dL 12/11/2023 2:44 AM CDT [facility] Blood BLOOD SPECIMEN / Unknown Butterfly / Unknown 12/11/2023 2:13 AM CDT 12/11/2023 2:24 AM CDT Yvette Marlow MD CHEMISTRY [facility] [address] [address], [place] * SCAN-CARDIAC STRIP (12/11/2023 1:54 AM CDT) Scanner OTHER * SCAN-CARDIAC STRIP (12/11/2023 1:21 AM CDT) Scanner OTHER * (ABNORMAL) TSH FOR ADD ON (12/10/2023 3:48 PM CDT) TSH 5.15(H) 0.27 - 4.20 uIU/mL 12/10/2023 4:50 PM CDT [facility] Blood BLOOD SPECIMEN / Unknown Venipuncture / [...] 2004; 291: [phone]. Herminio King MD CHEMISTRY [facility] [address] [address], [place] * (ABNORMAL) Lipid Panel AM (12/10/2023 3:48 PM CDT) CHOLESTEROL,TOTAL 162 100 - 199 mg/dL 12/10/2023 4:50 PM CDT [facility] Comment: Cholesterol, Total Reference Ranges Desirable <200 mg/dL Borderline 200-239 mg/dL High >=240 mg/dL TRIGLYCERIDES 134 <150 mg/dL 12/10/2023 4:50 PM CDT [facility] HDL CHOLESTEROL 30(L) >40 mg/dL 4:50 PM CDT [facility] NON-HDL CHOLESTEROL 132 <145 mg/dl 12/10/2023 4:50 PM CDT [facility] CHOL/HDL RATIO 5.40(H) <4.50 12/10/2023 4:50 PM CDT [facility] LDL CHOLESTEROL 105 <=130 mg/dL 12/10/2023 4:50 PM CDT [facility] VLDL CHOLESTEROL 27 <=30 mg/dL 12/10/2023 4:50 PM CDT [facility] Blood BLOOD SPECIMEN / Unknown Venipuncture / Unknown 12/10/2023 3:48 PM CDT 12/10/2023 3:54 PM CDT Herminio King MD CHEMISTRY [facility] [address] [place] [address], * (ABNORMAL) Basic metabolic panel TODAY (12/10/2023 3:48 PM CDT) SODIUM 140 136 - 145 mmol/L 12/10/2023 4:18 PM CDT [facility] POTASSIUM 4.7 3.5 - 5.1 mmol/L 12/10/2023 4:18 PM CDT [facility] CHLORIDE 107 98 - 107 mmol/L 12/10/2023 4:18 PM CDT [facility] CO2,TOTAL 23 22 - 29 mmol/L 12/10/2023 4:18 PM CDT [facility] ANION GAP 10 5 - 18 12/10/2023 4:18 PM CDT [facility] GLUCOSE 110(H) 70 - 99 mg/dL 12/10/2023 4:18 PM CDT [facility] CALCIUM 8.8 8.8 - 10.2 mg/dL 12/10/2023 4:18 PM CDT [facility] BUN 13 8 - 23 mg/dL 12/10/2023 4:18 PM CDT [facility] CREATININE 0.92(H) 0.50 - 0.90 mg/dL 12/10/2023 4:18 PM CDT [facility] BUN/CREAT RATIO 14 10 - 20 4 4:18 PM CDT [facility] eGFR 68(L) >90 mL/min/1.7 3m2 12/10/2023 4:18 PM CDT [facility] Comment:As of 2021, eG [...] 3:54 PM CDT Darrell Baker MD CHEMISTRY [facility] [address] [place] [address], * Screening hemoglobin A1c FOR ADD ON (12/10/2023 3:47 PM CDT) HEMOGLOBIN A1C SCREENING 6.1 <=6.4 % 12/10/2023 5:49 PM CDT [facility] Blood BLOOD SPECIMEN / Unknown Venipuncture [...] Untreated Anemias, Splenectomy Herminio King MD CHEMISTRY [facility] [address] [place] [address], * CBC no diff TODAY (12/10/2023 3:47 PM CDT) WHITE BLOOD COUNT 8.9 4.5 - 11.0 thou/cu mm 12/10/2023 4:03 PM CDT [facility] RED BLOOD COUNT 4.63 4.00 - 5.20 mil/cu mm 12/10/2023 4:03 PM CDT [facility] HEMOGLOBIN 14.5 12.0 - 16.0 g/dL 12/10/2023 4:03 PM CDT [facility] HEMATOCRIT 41.6 33.0 - 51.0 % 12/10/2023 4:03 PM CDT [facility] MCV 90 80 - 100 fL 12/10/2023 4:03 PM CDT [facility] MCH 31.3 26.0 - 34.0 pg 12/10/2023 4:03 PM CDT [facility] MCHC 34.9 32.0 - 36.0 g/dL 12/10/2023 4:03 PM CDT [facility] RDW 12.6 11.5 - 15.5 % 12/10/2023 4:03 PM CDT [facility] PLATELET COUNT 208 140 - 440 thou/cu mm 12/10/2023 4:03 PM CDT [facility] MPV 10.6 6.5 - 11.0 fL 12/10/2023 4:03 PM CDT [facility] NRBC 0.0 % 12/10/2023 4:03 PM CDT [facility] ABS NRBC 0.0 thou /cu mm 12/10/2023 4:03 PM CDT [facility] Blood BLOOD SPECIMEN / Unknown Venipuncture / Unknown 12/10/2023 3:47 PM CDT 12/10/2023 3:54 PM CDT Darrell Baker MD HEMATOLOGY [facility] [address] [place] [address], * SCAN CORRESP-EKG RESULTS (12/10/2023 1:17 PM [...] Activated Date Inactivated Comments 12/10/2023 12:49 PM 12/11/2023 7:16 PM Question Answer Comments Code Status Discussion: Reviewed Preferences Care Teams Poker Machine Attendant Relationship Specialty Start Date End Date Pcp, No . PCP - General 02/06/23
--- NOTE | 2023-12-14 15:49 | ED.GENADULT ---
HPI - General Adult General Chief complaint: Shortness of Breath/Dyspnea Stated complaint: Difficulty breathing Time Seen by Provider: 12/14/23 14:58 History of Present Illness HPI narrative: This patient is a 68-year-old female who comes in reporting some lightheadedness, shortness of breath, and mild chest discomfort. She was recently at [facility] in the hospital and was cardioverted for atrial fibrillation after having a transesophageal echocardiogram. This was successful to return her to normal sinus rhythm. She was discharged with a new prescription for sotalol and Eliquis. Today she states that she was feeling well until about an hour after taking her sotalol she began to feel lightheaded and some shortness of breath. This made her feel somewhat anxious which amplified the symptoms. She arrives here with normal vital signs except her pulse was noted to be at 40 beats per minute. When I went in to visit her initially her pulse was likely double this rate and what looked to be like a pattern of bigeminy with frequent premature ventricular contractions. Related Data Home Medications Medication Instructions Recorded Confirmed cholecalciferol (vitamin D3) 125 5,000 unit PO DAILY 01/25/22 09/09/23 mcg (5,000 unit) tablet ibuprofen 200 mg tablet mg PO Q6-8H PRN 02/20/22 09/09/23 apixaban 5 mg tablet (Eliquis) 5 mg PO BID 12/14/23 12/14/23 sotalol 80 mg tablet 80 mg PO BID 12/14/23 12/14/23 Previous Rx's Medication Instructions Recorded estradiol 0.01% (0.1 mg/gram) 1 appful vaginal QDAY #42.5 grams 02/11/23 vaginal cream triamcinolone acetonide 0.1 % 1 applic topical QDAY #30 grams 02/11/23 topical ointment phenazopyridine 200 mg tablet 200 mg PO TID #14 tabs 09/09/23 (Pyridium) Allergies Allergy/AdvReac Type Severity Reaction Status Date / Time oxycodone Allergy Severe Full body Verified 09/09/23 15:14 rash Erythromycin Allergy Intermediate Hives Uncoded 09/09/23 15:14 Iodinated Diagnostic Agents Allergy Intermediate Rash Uncoded 09/09/23 15:14 Review of Systems Status of ROS: Reports: 10 or more systems reviewed and unremarkable except as noted in History and below Narrative: Constitutional: No fevers, no weight gain or loss. Eyes: No discharge. No vision changes. HENT: No congestion, no sore throat, no ear pain. Cardiovascular: She does report some palpitations. Respiratory: No wheezes, no cough. Gastrointestinal: No abdominal pain, no vomiting, no diarrhea. Genitourinary: No dysuria, no hematuria. Musculoskeletal: Normal range of motion. Skin: No rashes, no pruritis. Neurological: No dizziness, weakness, sensory change, speech change. Endo/Heme/Allergies: No bruising or bleeding. No polydipsia. Pysch: no suicidality, no anxiety, no insomnia. All other systems reviewed and are negative. [facility] Medical History (Updated 12/14/23 @ 16:49 by Amandeep Jean MD) Fatty liver ?K76.0 - Fatty (change of) liver, not elsewhere classified (ICD-10) Impaired fasting glucose ?R73.01 - Impaired fasting glucose (ICD-10) Patent foramen ovale ?Q21.12 - Patent foramen ovale (ICD-10) Congestive heart failure ?I50.9 - Heart failure, unspecified (ICD-10) Atrial flutter (12/10/23) ?I48.92 - Unspecified atrial flutter (ICD-10) Atrophic vulvovaginitis ?N95.2 - Postmenopausal atrophic vaginitis (ICD-10) Pelvic pain ?R10.2 - Pelvic and perineal pain (ICD-10) Chronic back pain ?M54.9 - Dorsalgia, unspecified (ICD-10) ?G89.29 - Other chronic pain (ICD-10) Obesity ?E66.9 - Obesity, unspecified (ICD-10) Type 2 diabetes mellitus ?E11.9 - Type 2 diabetes mellitus without complications (ICD-10) Bilateral hand pain ?M79.641 - Pain in right hand (ICD-10) ?M79.642 - Pain in left hand (ICD-10) JAIME (stress urinary incontinence, female) ?N39.3 - Stress incontinence (female) (male) (ICD-10) Vitamin D deficiency ?E55.9 - Vitamin D deficiency, unspecified (ICD-10) Subclinical hypothyroidism ?E03.8 - Other specified hypothyroidism (ICD-10) Lung nodule ?R91.1 - Solitary pulmonary nodule (ICD-10) History of dermatitis ?Z87.2 - Personal history of diseases of the skin and subcutaneous tissue (ICD-10) History of adenomatous polyp of colon ?Z86.010 - Personal history of colonic polyps (ICD-10) Essential hypertension ?I10 - Essential (primary) hypertension (ICD-10) Dyslipidemia ?E78.5 - Hyperlipidemia, unspecified (ICD-10) Carcinoma of vulva ?C51.9 - Malignant neoplasm of vulva, unspecified (ICD-10) Surgical History (Updated 12/12/23 @ 13:03 by Jayna Yee) History of cardioversion ?Z92.89 - Personal history of other medical treatment (ICD-10) History of total replacement of both hip joints ?Z96.643 - Presence of artificial hip joint, bilateral (ICD-10) History of tubal ligation ?Z98.51 - Tubal ligation status (ICD-10) History of total knee replacement (04/12/11) ?Z96.659 - Presence of unspecified artificial knee joint (ICD-10) History of endometrial ablation (2005) ?Z98.890 - Other specified postprocedural states (ICD-10) History of cholecystectomy (1993) ?Z90.49 - Acquired absence of other specified parts of digestive tract (ICD-10) History of carpal tunnel release ?Z98.890 - Other specified postprocedural states (ICD-10) Family History Mother Dementia Diabetes Hypothyroidism Father High blood pressure Nonmelanoma skin cancer Uncle Stroke Social History Narrative: Does not exercise due to knee pain , 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 [employer] Non-smoker- quit age 37, 15 pack years Rarely consumes alcohol What is your current living situation?: I presently have a place to live Problems where you live: no known problems In the past 12 months, utilities in danger of being shut off: no In past 12 months, lack of transportation kept you from medical appts, meetings, work, or getting things needed for daily living: no In the past 12 mos, have been you worried that your food would run out before you had money to buy more?: never true In the past 12 mos, the food you bought just didn't last and you didn't have money to buy more?: never true Smoking Status: Former smoker How often do you have a drink containing alcohol: never AUDIT-C Alcohol total score: 0 Non-prescribed substance use: denies use How often does anyone, including family, friends and others, physically hurt you: never How often does anyone, including family, friends and others, insult or talk down to you: never How often does anyone, including family, friends and others, threaten you with harm: never How often does anyone, including family, friends and others, scream or curse at you: never Little interest or pleasure in doing things: not at all Feeling down, depressed, or hopeless: not at all Exam Narrative: Exam Narrative: Constitutional: Well-developed, well-nourished, no acute distress. HEENT: Normocephalic, atraumatic. Neck: Normal range of motion. Nontender. Supple. Heart: Irregular. No murmurs. Normal rate. Intact distal pulses. Lungs: Clear to auscultation. No chest discomfort. No wheezes, rhonchi, or rales. Abdomen: Normal bowel sounds. Nontender. No rebound tenderness. Genitalia: Deferred. Back: No midline tenderness. Normal range of motion. Extremities: Normal range of motion. No injury. Skin: Intact. No rash. Warm. No erythema or pallor. Neurologic: No altered sensation. No weakness. Alert and oriented. Psychiatric: No suicidality. No anxiety or depression. No insomnia. Nursing notes and vitals signs are reviewed. Const: Vital Signs, click to edit/add: Vital Signs - 24 hr 12/14/23 14:55 12/14/23 15:13 12/14/23 15:14 Temperature 98.5 F Pulse Rate 39 L 39 L Pulse Rate [Right Pulse Oximeter] 40 L Respiratory Rate 18 Blood Pressure 169/94 H Blood Pressure [Ri ght Upper Arm] 110/51 L Pulse Oximetry 95 95 95 Oxygen Delivery Me thod Room Air 12/14/23 15:15 12/14/23 15:30 12/14/23 15:45 Temperature Pulse Rate 38 L 42 L 45 L Pulse Rate [Right Pulse Oximeter] Respiratory Rate 18 Blood Pressure Blood Pressure [Ri ght Upper Arm] Pulse Oximetry 94 95 95 Oxygen Delivery Me thod 05/19/24 16:00 12/14/23 16:05 12/14/23 16:09 Temperature Pulse Rate 34 L 38 L 33 L Pulse Rate [Right Pulse Oximeter] Respiratory Rate Blood Pressure 153/78 H Blood Pressure [Ri ght Upper Arm] Pulse Oximetry 93 94 94 Oxygen Delivery Me thod 12/14/23 16:15 Temperature Pulse Rate 34 L Pulse Rate [Right Pulse Oximeter] Respiratory Rate Blood Pressure Blood Pressure [Ri ght Upper Arm] Pulse Oximetry 93 Oxygen Delivery Me thod Course Vital Signs Vital signs: Initial Vital Signs Respiratory Effort Normal, Spontaneous, Non-Labored 12/14/23 14:47 Respiratory Depth Normal 12/14/23 14:47 Respiratory Pattern Normal 12/14/23 14:47 Vital Signs Temperature 98.5 F 12/14/23 14:55 Pulse Rate 40 L 12/14/23 14:55 Respiratory Rate 18 12/14/23 14:55 Blood Pressure 110/51 L 12/14/23 14:55 Pulse Oximetry 95 12/14/23 14:55 Oxygen Delivery Method Room Air 12/14/23 14:55 Temperature 98.5 F 12/14/23 14:55 Pulse Rate 34 L 12/14/23 16:15 Respiratory Rate 18 12/14/23 15:45 Blood Pressure 153/78 H 12/14/23 16:09 Pulse Oximetry 93 12/14/23 16:15 Oxygen Delivery Method Room Air 12/14/23 14:55 Medical Decision Making MDM Narrative Medical decision making narrative: This patient comes in reporting some feeling of lightheadedness and shortness of breath that occurred about an hour after taking her sotalol this morning. This is a new medication for her after being cardioverted from what was either atrial fibrillation or atrial flutter. She is also on Eliquis in this regard. She arrives here in sinus rhythm but there are frequent PVCs sometimes in a pattern of bigeminy. Labs are acquired and returned with reassuring findings. Her B type nitrate peptide, troponin, magnesium, and other electrolytes are all in normal range. It seems that these sotalol may have triggered some of these symptoms. I advised her to discontinue this medication. She would benefit from some kind of rate controlling preventative medicine. I was thinking that carvedilol may be worth a try. She does have a follow-up appointment with Dr. Avitia tomorrow. These matters can be considered at that time. I advised her to return here if worsening symptoms occur. Lab Data Labs: Lab Results 12/14/23 12/14/23 Range/Units 15:31 15:33 WBC 10.69 (4.50-11.00) K/uL RBC 4.69 (4.00-5.20) m/uL Hgb 14.3 (12.0-16.0) gm/dL Hct 43.1 (33.0-51.0) % MCV 92 (80-100) fL MCH 31 (26-34) pg MCHC 33 (32-36) gm/dL RDW Coeff of Erin 12.3 (11.5-15.5) % Plt Count 239 (140-440) K/uL Neut % (Auto) 68.0 (42.0-72.0) % Lymph % (Auto) 24.2 (20-44) % [place] % (Auto) 5.5 (0.0-11.0) % Eos % (Auto) 1.8 (0.0-7.0) % Baso % (Auto) 0.2 (0.0-3.0) % Neut # (Auto) 7.27 H (1.7-7.0) K/uL Lymph # (Auto) 2.59 (0.90-2.90) K/uL [place] # (Auto) 0.60 (0.00-0.90) K/UL Eos # (Auto) 0.19 (0.00-0.50) K/uL Baso # (Auto) 0.02 (0.00-0.30) K/uL Abs Immat Gran (auto) 0.03 (0.00-0.30) K/uL Imm/Tot Granulo (auto) 0.3 % Sodium 138 (135-149) mmol/L Potassium 4.4 (3.6-5.1) mmol/L Chloride 111 (96-114) mmol/L Carbon Dioxide 23 (20-32) mmol/L Anion Gap 4 L (7-15) mEq/L BUN 27 (7-30) mg/dL Creatinine 1.1 (0.5-1.5) mg/dL Estimated Creat Clear 44.66 Estimated GFR 55 ml/min Glucose 118 H (60-115) mg/dL Calcium 8.6 (8.4-10.6) mg/dL Magnesium 1.9 (1.5-2.6) mg/dL NT-Pro-B Natriuret Pep 1120 pg/mL POC Troponin I 0.03 (0.01-0.04) ng/ml ECG Data Attestation: I personally reviewed and interpreted this ECG as follows: Interpretation: Sinus rhythm with frequent and often and consecutive premature ventricular complexes sometimes in a pattern of bigeminy. Rate is 85 beats per minute. There are no specific ST or T-wave abnormalities. Discharge Plan Discharge Clinical Impression: Premature ventricular contractions Patient Disposition: Home, Self-Care Condition: Stable Additional Instructions: Hold sotalol this evening and tomorrow morning and follow up with clinic appointment as scheduled. Return if worsening. Prescriptions: No Action cholecalciferol (vitamin D3) 125 mcg (5,000 unit) tablet 5,000 unit PO DAILY ibuprofen 200 mg tablet PO Q6-8H PRN triamcinolone acetonide 0.1 % ointment 1 applic topical QDAY Qty: 30 0RF estradiol 0.01 % (0.1 mg/gram) cream 1 appful vaginal QDAY Qty: 42.5 0RF Rx Instructions: for 14 days phenazopyridine [Pyridium] 200 mg tablet 200 mg PO TID Qty: 14 0RF sotalol 80 mg tablet 80 mg PO BID Eliquis 5 mg tablet 5 mg PO BID Follow Up/Referrals: Kelechi Avitia MD [Primary Care Provider] - Stand Alone Forms: [facility] Info Instructions
[2023-12-14 15:54] LABS: Chloride* 111 mmol/L (96-114); Potassium* 4.4 mmol/L (3.6-5.1); Sodium* 138 mmol/L (135-149)
[2023-12-14 15:57] LABS: Anion Gap 4 mEq/L (7-15); Carbon Dioxide* 23 mmol/L (20-32); Creatinine* 1.1 mg/dL (0.5-1.5); Est. Creatinine Clearance* 44.66; Estimated Glomerular Filt Rate 55 ml/min
[2023-12-14 15:57] LABS: Troponin, Point-of-Care* 0.03 ng/ml (0.01-0.04)
[2023-12-14 15:58] LABS: Blood Urea Nitrogen* 27 mg/dL (7-30); Calcium* 8.6 mg/dL (8.4-10.6); Glucose* 118 mg/dL (60-115); Magnesium* 1.9 mg/dL (1.5-2.6)
[2023-12-14 16:21] LABS: NT Pro B Type NatriureticPept* 1120 pg/mL
== END 2023-12-14 16:50 | disposition home or self-care (01) ==
PROVIDERS: Family Medicine; Emergency Provider Emergency Medicine Emergency Medical Services; PCP Internal Medicine
DX: I49.3 Ventricular premature depolarization (principal)
CPT/HCPCS: 36415; 71046; 80048; 83735; 83880; 84484; 85025; 93005; 99284; 99285

== ENCOUNTER 2023-12-22 19:56 | Emergency (ER) | payer MEDICARE, BC, SELFPAY ==
[2023-12-22] VITALS (17 sets, daily range): BP systolic 143–219; BP diastolic 71–91; PULSE 39–105; RESP 18–20; TEMP 36.1; O2SAT 94–97; BMI 38.3
--- NOTE | 2023-12-22 20:24 | CRLHL7_ITS ---
For Patients: As a result of the Century Cures Act, medical imaging exams and procedure reports are released immediately into your electronic medical record. You may view this report before your referring provider. If you have questions, please contact your health care provider. INDICATION: Chest pain TECHNIQUE: Chest radiograph 2 views COMPARISON: 12/14/2023 FINDINGS: The sensitivity and specificity of the exam are moderately limited by the patient`s body habitus. Mediastinum: The mediastinum is normal in appearance. Mild stable cardiomegaly is noted. Lung: Both lungs are unremarkable in appearance. No sign of pleural effusion seen. No pneumothorax is identified. Bone and Soft tissue: Unremarkable for age. IMPRESSION: 1. Mild stable cardiomegaly is noted. Dictated by Klever Ferrer MD @ 12/22/2023 9:06:08 PM Dictated by: Klever Ferrer MD @ 12/22/2023 21:06:10 (Electronically Signed)
--- OUTSIDE RECORDS SUMMARY | 2023-12-22 20:31 | XMS_ITS | Clinical Summary ---
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 04/15/2011 05/03/2011 Encounters Date Type Department Care Team Description 12/11/2023 9:16 AM CDT Anesthesia Event [facility] [address] [place] [address] Jeimy Kim MD 12/10/2023 11:26 AM CDT - 12/11/2023 5:11 PM CDT Hospital Encounter [facility] [address] [place] [address] [facility] Hospitalists Of Lilo Barnes MD Residents, B2 Atrial flutter with rapid ventricular response (HC) (Primary Dx); PVC's (premature ventricular contractions); Persistent atrial fibrillation (HC) Discharge Disposition: Home Self Care 12/10/2023 Travel 12/10/[address] [facility] [address] [facility] [address] [place] [phone] Quique Garcia MD Fast Heartbeat (and CHF) [...] 12 LEAD STAT 12/11/2023 12:20 AM CDT SCAN-CARDIAC STRIP 12/11/2023 12 :00 AM CDT TSH KATHERINE 12/10/2023 3:48 PM [...] CDT ECHOCARDIOGRAM KERRY SORIA ? Accession#: ?? [id number] : ?1955 68 years Study Date: ?? 12/11/2023 1:09:34 PM Gender: F ?BP: ? 121/62 mmHg Height: 162.00 cm ?BSA: ?2.15 m? ? ? Weight: 114.00 kg ?Tech: ? OLL/CM ? Referring MD: DARRELL DOAN Site: ? [facility] Reading Location: ANW IP Patient Location: Inpatient. [...] . This study was interpreted by an [facility] accredited facility. ??Final ?? Procedure Note Sushant Zee MD - 12/11/2023 ECHOCARDIOGRAM KERRY SORIA : 1955 68 years Study Date: 12/11/2023 1:09:34 PM Gender: F BP: 121/62 mmHg Height: 162.00 cm BSA: 2.15 m? ? ? Weight: 114.00 kg Tech: OLL/CM Referring MD: DARRELL DOAN Site: [facility] Reading Location: [facility] Patient Location: Inpatient. Procedure: Limited Spectral Doppler, [...] . This study was interpreted by an [facility] accredited facility. Final Darrell CRENSHAW ECHO ORD * SCAN-CARDIAC STRIP (12/11/2023 1:05 PM CDT) Scanner OTHER * ECHO ANA WO CONTRAST W COLOR W LTD DOPPLER (12/11/2023 9:36 AM CDT) Anatomical Region Laterality Modality Ultrasound 12/11/2023 7:57 AM CDT Narrative 12/11/2023 9:40 AM CDT TRANSESOPHAGEAL ECHOCARDIOGRAM KERRY SORIA ? Accession#: ?? [id number] : ?1955 68 years Study Date: ?? 12/11/2023 7:57:19 AM Gender: F ?BP: ? 138/79 mmHg Height: 163.00 cm ?BSA: ?2.17 m? ? ? Weight: 115.00 kg ?Tech: ? Dr Del Real ? Referring MD: OMID LOCK Site: ? [facility] Reading Location: Patient Location: Inpatient. Procedure: 2D, [...] . This study was interpreted by an [facility] accredited facility. ??Final ?? Procedure Note Rikki Del Real MD - 12/11/2023 TRANSESOPHAGEAL ECHOCARDIOGRAM KERRY SORIA : 1955 68 years Study Date: 12/11/2023 7:57:19 AM Gender: F BP: 138/79 mmHg Height: 163.00 cm BSA: 2.17 m? ? ? Weight: 115.00 kg Tech: Dr Del Real Referring MD: OMID LOCK Site: [facility] Reading Location: Patient Location: Inpatient. Procedure: 2D, ANA, Color Doppler and Spectral Doppler. Indication for study: [facility] Cardiac Rhythm: Atrial fibrillation.Study quality: Fair. Final [...] . This study was interpreted by an [facility] accredited facility. Final Omid Lock NP ECHO ORD * EKG 12 LEAD (12/11/2023 9:33 AM CDT) Only the most recent of4 resultswithin the time period is included. Interpretation Sinus rhythm with frequent and consecutive Premature ventricular complexes Possible Left atrial enlargement Minimal voltage criteria for LVH, may be normal variant ( Bruning product ) Cannot rule out Anterior infarct [...] NOW QTc 472 ms BEYOND NOW P Gate 31 degrees BEYOND NOW R Gate -27 degrees BEYOND NOW T Gate 105 degrees BEYOND NOW 12/11/2023 9:33 AM CDT 12/11/2023 8:27 PM CDT Narrative BEYOND NOW - 12/11/2023 8:27 PM CDT Test Indication: POST CARDIO Rikki Del Real MD EKG ORD Performing Organization Address City/[facility]/ZIP Co de Phone Number BEYOND NOW [place], [place] * T4,FREE (12/11/2023 2:13 AM CDT) Pathologist [facility] T4,FREE 1.28 0.93 - 1.70 ng/dL 12/11/2023 7:59 AM CDT [facility] Blood BLOOD SPECIMEN / Unknown Butterfly / Unknown 12/11/2023 2:13 AM CDT 12/11/2023 2:24 AM CDT Herminio King MD CHEMISTRY Performing Organization Address City/[facility]/ZIP Co de Phone Number [facility] [address] [place] [address], * MAGNESIUM (12/11/2023 2:13 AM CDT) Pathologist [facility] MAGNESIUM 1.9 1.6 - 2.4 mg/dL 12/11/2023 2:44 AM CDT [facility] Blood BLOOD SPECIMEN / Unknown Butterfly / Unknown 12/11/2023 2:13 AM CDT 12/11/2023 2:24 AM CDT Yvette Marlow MD CHEMISTRY Performing Organization Address [facility]/ZIP Co de Phone Number [facility] [address] [place] [phone], * SCAN-CARDIAC STRIP (12/11/2023 1:54 AM CDT) Scanner OTHER * SCAN-CARDIAC STRIP (12/11/2023 1:21 AM CDT) Scanner OTHER * SCAN-CARDIAC STRIP (12/11/2023 12:00 AM CDT) Narrative 12/11/2023 12:00 AM CDT Ordered by an unspecified provider. Other Clinical Staff OTHER * (ABNORMAL) TSH FOR ADD ON (12/10/2023 3:48 PM CDT) TSH 5.15(H) 0.27 - 4.20 uIU/mL 12/10/2023 4:50 PM CDT [facility] Blood BLOOD SPECIMEN / Unknown Venipuncture / Unknown 12/10/2023 3:48 PM CDT 12/10/2023 3:54 PM CDT Narrative [facility] - 12/10/2023 4:50 PM CDT In Adults, TSH values between 5.00 and 10.00 uIU/ml do not necessarily indicate the presence of Hypothyroidism. Correlation with clinical findings such as presence of goiter and/or Thyroperoxidase (TPO) Antibody may be helpful. For more information please refer to JOSE MARIA 2004; 291: 228-238. Herminio King MD CHEMISTRY Performing Organization Address [facility]/ZIP Co de Phone Number [facility] [address] [place] [phone], * (ABNORMAL) Lipid Panel AM (12/10/2023 3:48 PM CDT) CHOLESTEROL,TOTAL 162 100 - 199 mg/dL 12/10/2023 4:50 PM CDT [facility] Comment: Cholesterol, Total Reference Ranges Desirable <200 mg/dL Borderline 200-239 mg/dL High >=240 mg/dL TRIGLYCERIDES 134 <150 mg/dL 12/10/2023 4:50 PM CDT [facility] HDL CHOLESTEROL 30(L) >40 mg/dL 4:50 PM CDT [facility] NON-HDL CHOLESTEROL 132 <145 mg/dl 12/10/2023 4:50 PM CDT [facility] CHOL/HDL RATIO 5.40(H) <4.50 12/10/2023 4:50 PM CDT [facility] LDL CHOLESTEROL 105 <=130 mg/dL 12/10/2023 4:50 PM CDT [facility] VLDL CHOLESTEROL 27 <=30 mg/dL 12/10/2023 4:50 PM CDT [facility] Blood BLOOD SPECIMEN / Unknown Venipuncture / Unknown 12/10/2023 3:48 PM CDT 12/10/2023 3:54 PM CDT Herminio King MD CHEMISTRY [facility] [address] [place] [address], * (ABNORMAL) Basic metabolic panel TODAY (12/10/2023 3:48 PM CDT) SODIUM 140 136 - 145 mmol/L 12/10/2023 4:18 PM CDT [facility] POTASSIUM 4.7 3.5 - 5.1 mmol/L 12/10/2023 4:18 PM CDT [facility] CHLORIDE 107 98 - 107 mmol/L 12/10/2023 4:18 PM CDT [facility] CO2,TOTAL 23 22 - 29 mmol/L 12/10/2023 4:18 PM CDT [facility] ANION GAP 10 5 - 18 12/10/2023 4:18 PM CDT [facility] GLUCOSE 110(H) 70 - 99 mg/dL 12/10/2023 4:18 PM CDT [facility] CALCIUM 8.8 8.8 - 10.2 mg/dL 12/10/2023 4:18 PM CDT [facility] BUN 13 8 - 23 mg/dL 12/10/2023 4:18 PM CDT [facility] CREATININE 0.92(H) 0.50 - 0.90 mg/dL 12/10/2023 4:18 PM CDT [facility] BUN/CREAT RATIO 14 10 - 20 4:18 PM CDT [facility] eGFR 68(L) >90 mL/min/1.7 3m2 12/10/2023 4:18 PM CDT [facility] Comment:As of 2021, eG FR is calculated by the CKD-EPI creatinine equation without race adjustment. ??eGFR can be influenced by muscle mass, exercise, and diet. ??The reported eGFR is an estimation only and is only applicable if the renal function is stable. Blood BLOOD SPECIMEN / Unknown Venipuncture / Unknown 12/10/2023 3:48 PM CDT 12/10/2023 3:54 PM CDT Darrell CRENSHAW CHEMISTRY [facility] [address] [place] [address], * Screening hemoglobin A1c FOR ADD ON (12/10/2023 3:47 PM CDT) HEMOGLOBIN A1C SCREENING 6.1 <=6.4 % 12/10/2023 5:49 PM CDT [facility] Blood BLOOD SPECIMEN / Unknown Venipuncture / Unknown 12/10/2023 3:47 PM CDT 12/10/2023 3:54 PM CDT Narrative [facility] - 12/10/2023 5:49 PM CDT ? (<5.7%) ?Normal ? (5.7% to 6.4%) ? Indicates prediabetes ? (>=6.5%) ? Confirms diabetes Falsely low levels may be seen with: Recent Transfusion, Recent Significant Blood Loss, Hemolytic Diseases, or Falsely elevated levels may be seen with: Untreated Anemias, Splenectomy Herminio King MD CHEMISTRY [facility] [address] [place] [address], * CBC no diff TODAY (12/10/2023 3:47 PM CDT) [facility] WHITE BLOOD COUNT 8.9 4.5 - 11.0 thou/cu mm 12/10/2023 4:03 PM CDT [facility] RED BLOOD COUNT 4.63 4.00 - 5.20 mil/cu mm 12/10/2023 4:03 PM CDT [facility] HEMOGLOBIN 14.5 12.0 - 16.0 g/dL 12/10/2023 4:03 PM CDT [facility] HEMATOCRIT 41.6 33.0 - 51.0 % 12/10/2023 4:03 PM CDT [facility] MCV 90 80 - 100 fL 12/10/2023 4:03 PM CDT [facility] MCH 31.3 26.0 - 34.0 pg 12/10/2023 4:03 PM CDT [facility] MCHC 34.9 32.0 - 36.0 g/dL 12/10/2023 4:03 PM CDT [facility] RDW 12.6 11.5 - 15.5 % 12/10/2023 4:03 PM CDT [facility] PLATELET COUNT 208 140 - 440 thou/cu mm 12/10/2023 4:03 PM CDT [facility] MPV 10.6 6.5 - 11.0 fL 12/10/2023 4:03 PM CDT [facility] NRBC 0.0 % 12/10/2023 4:03 PM CDT [facility] ABS NRBC 0.0 thou /cu mm 12/10/2023 4:03 PM CDT [facility] Blood BLOOD SPECIMEN / Unknown Venipuncture / Unknown 12/10/2023 3:47 PM CDT 12/10/2023 3:54 PM CDT Darrell CRENSHAW HEMATOLOGY [facility] [address] [place] [address], * SCAN CORRESP-EKG RESULTS (12/10/2023 1:17 PM [...] Code Status Discussion: Reviewed Preferences Care Teams Retail Marketing Coordinator Relationship Specialty Start Date End Date Pcp, No . PCP - General 02/06/23
[2023-12-22 20:32] LABS: Basophils Percent Auto 0.2 % (0.0-3.0); Eosinophils Percent Auto 1.1 % (0.0-7.0); Hematocrit 46.8 % (33.0-51.0); Hemoglobin* 15.7 gm/dL (12.0-16.0); Immature Granulocytes Pct Auto 0.2 %; Lymphocytes Percent Auto 27.3 % (20-44); Mean Corpuscular HGB Conc 34 gm/dL (32-36); Mean Corpuscular Hemoglobin 30 pg (26-34); Mean Corpuscular Volume 91 fL (80-100); Monocytes Percent Auto 6.3 % (0.0-11.0); Neutrophils Percent Auto 64.9 % (42.0-72.0); Platelet Count* 241 K/uL (140-440); RDW Coefficient of Variation % 12.1 % (11.5-15.5); Red Blood Count 5.16 m/uL (4.00-5.20); Slide Review Reflex No; White Blood Count* 12.24 K/uL (4.50-11.00)
[2023-12-22 20:32] LABS: Troponin, Point-of-Care* 0.01 ng/ml (0.01-0.04)
[2023-12-22] MEDS: KETOROLAC 15 MG/ML inj IVP (20:39)
[2023-12-22 20:47] LABS: Chloride* 107 mmol/L (96-114); Potassium* 4.1 mmol/L (3.6-5.1); Sodium* 139 mmol/L (135-149)
[2023-12-22 20:50] LABS: Anion Gap 9 mEq/L (7-15); Blood Urea Nitrogen* 25 mg/dL (7-30); Carbon Dioxide* 23 mmol/L (20-32); Creatinine* 0.9 mg/dL (0.5-1.5); Est. Creatinine Clearance* 49.12; Estimated Glomerular Filt Rate 70 ml/min; Glucose* 127 mg/dL (60-115)
[2023-12-22 21:00] LABS: NT Pro B Type NatriureticPept* 1170 pg/mL
[2023-12-22 21:05] LABS: D Dimer Quantitative* 0.37 ug/ml (0.00-0.50)
[2023-12-22 21:15] LABS: Troponin I* < 0.01 ng/mL (0.01-0.04)
--- NOTE | 2023-12-22 21:22 | ED_ITS ---
HPI - Chest Pain General Date Seen: 12/22/23 Chief Complaint: Chest Pain Stated Complaint: high bp, chest pain Time Seen by Provider: 12/22/23 20:15 Source: patient Mode of arrival: ambulatory Limitations: no limitations History of Present Illness HPI narrative: Patient is a 68-year-old female presenting for chest pain and shortness of breath along with high blood pressure. Patient states she has been having some dull chest pain that started about 17:30. Denies having pain like this before states it feels different than her mild chest discomfort back on 12/14/2023. She states now feels a burning sensation in her chest. She also feels like it is hard to fully catch her breath. Also started having low back pain at the same time that is new. Pain is midline in her lower lumbar region. She has also checking her blood pressure at home was elevated at 220 3/123 and her heart rate was in the 40s. It stayed consistently at that rate. Back in 12/10/2023 patient was here for AFib in transferred to cardiology at [place] for cardioversion and a ANA. At that time she was cardioverted and discharged on sotalol. When she returned on 12/14/2023 she was having similar symptoms as today with the low heart rate. The sotalol was stopped at that time. She saw her primary care provider the next day and he ordered her a Zio patch which she was supposed a male in today but was unable to due to the post office being closed as it is a holiday. She is not on any other blood pressure medications. She is currently taking Eliquis. Denies missing any doses. Denies fevers, chills, weakness, numbness, headache, lightheadedness, dizziness, abdominal pain, dysuria. No other concerns noted Related Data Home Medications ?Medication ?Instructions ?Recorded ?Confirmed cholecalciferol (vitamin D3) 125 5,000 unit PO DAILY 01/25/22 12/23/23 mcg (5,000 unit) tablet ibuprofen 200 mg tablet mg PO Q6-8H PRN 02/20/22 12/23/23 apixaban 5 mg tablet (Eliquis) 5 mg PO BID 12/14/23 12/23/23 amoxicillin 500 mg capsule 2,000 mg PO 12/23/23 12/23/23 Previous Rx's ?Medication ?Instructions ?Recorded estradiol 0.01% (0.1 mg/gram) 1 appful vaginal QDAY #42.5 grams 02/11/23 vaginal cream triamcinolone acetonide 0.1 % 1 applic topical QDAY #30 grams 02/11/23 topical ointment phenazopyridine 200 mg tablet 200 mg PO TID #14 tabs 09/09/23 (Pyridium) amlodipine 5 mg tablet (Norvasc) 5 mg PO DAILY #30 tabs 12/22/23 Allergies Allergy/AdvReac Type Severity Reaction Status Date / Time oxycodone Allergy Severe Full body Verified 12/23/23 09:55 rash erythromycin base Allergy Unknown Verified 12/23/23 09:55 iodine Allergy Unknown Verified 12/23/23 09:55 Review of Systems Status of ROS Reports: 10 or more systems reviewed and unremarkable except as noted in History and below [facility] Medical History Bradycardia ?R00.1 - Bradycardia, unspecified (ICD-10) Fatty liver ?K76.0 - Fatty (change of) liver, not elsewhere classified (ICD-10) Impaired fasting glucose ?R73.01 - Impaired fasting glucose (ICD-10) Patent foramen ovale ?Q21.12 - Patent foramen ovale (ICD-10) Congestive heart failure ?I50.9 - Heart failure, unspecified (ICD-10) Atrial flutter (12/10/23) ?I48.92 - Unspecified atrial flutter (ICD-10) Atrophic vulvovaginitis ?N95.2 - Postmenopausal atrophic vaginitis (ICD-10) Pelvic pain ?R10.2 - Pelvic and perineal pain (ICD-10) Chronic back pain ?M54.9 - Dorsalgia, unspecified (ICD-10) ?G89.29 - Other chronic pain (ICD-10) Obesity ?E66.9 - Obesity, unspecified (ICD-10) Type 2 diabetes mellitus ?E11.9 - Type 2 diabetes mellitus without complications (ICD-10) Bilateral hand pain ?M79.641 - Pain in right hand (ICD-10) ?M79.642 - Pain in left hand (ICD-10) JAIME (stress urinary incontinence, female) ?N39.3 - Stress incontinence (female) (male) (ICD-10) Vitamin D deficiency ?E55.9 - Vitamin D deficiency, unspecified (ICD-10) Subclinical hypothyroidism ?E03.8 - Other specified hypothyroidism (ICD-10) Lung nodule ?R91.1 - Solitary pulmonary nodule (ICD-10) History of dermatitis ?Z87.2 - Personal history of diseases of the skin and subcutaneous tissue (ICD-10) History of adenomatous polyp of colon ?Z86.010 - Personal history of colonic polyps (ICD-10) Essential hypertension ?I10 - Essential (primary) hypertension (ICD-10) Dyslipidemia ?E78.5 - Hyperlipidemia, unspecified (ICD-10) Carcinoma of vulva ?C51.9 - Malignant neoplasm of vulva, unspecified (ICD-10) Surgical History History of cardioversion ?Z92.89 - Personal history of other medical treatment (ICD-10) History of total replacement of both hip joints ?Z96.643 - Presence of artificial hip joint, bilateral (ICD-10) History of tubal ligation ?Z98.51 - Tubal ligation status (ICD-10) History of total knee replacement (04/12/11) ?Z96.659 - Presence of unspecified artificial knee joint (ICD-10) History of endometrial ablation (2005) ?Z98.890 - Other specified postprocedural states (ICD-10) History of cholecystectomy (1993) ?Z90.49 - Acquired absence of other specified parts of digestive tract (ICD- 10) History of carpal tunnel release ?Z98.890 - Other specified postprocedural states (ICD-10) Family History Mother Dementia Diabetes Hypothyroidism Father High blood pressure Nonmelanoma skin cancer Uncle Stroke Social History Narrative: Does not exercise due to knee pain , 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 [employer] Non-smoker- quit age 37, 15 pack years Rarely consumes alcohol What is your current living situation?: I presently have a place to live Problems where you live: no known problems In the past 12 months, utilities in danger of being shut off: no In past 12 months, lack of transportation kept you from medical appts, meetings, work, or getting things needed for daily living: no In the past 12 mos, have been you worried that your food would run out before you had money to buy more?: never true In the past 12 mos, the food you bought just didn't last and you didn't have money to buy more?: never true Smoking Status: Former smoker Second hand tobacco smoke exposure: No How often do you have a drink containing alcohol: never AUDIT-C Alcohol total score: 0 Non-prescribed substance use: denies use How often does anyone, including family, friends and others, physically hurt you : never How often does anyone, including family, friends and others, insult or talk down to you: never How often does anyone, including family, friends and others, threaten you with harm: never How often does anyone, including family, friends and others, scream or curse at you: never Little interest or pleasure in doing things: not at all Feeling down, depressed, or hopeless: not at all Exam Narrative Exam Narrative: Const: Well-nourished, Well-developed, in mild distress Eyes: PERRL, no conjunctival injection, and symmetrical lids HENT: Atraumatic external nose and ears. Moist mucous membranes. Neck: Symmetric, trachea midline, No thyromegaly. CVS: Bradycardic, No murmurs or gallops. Peripheral pulses 2+ and equal in all extremities RESP: Mild increase in respiratory effort. Clear to auscultation bilaterally. GI: Nontender/Nondistended, No rebound or guarding. MSK:Extremities w/o deformity, Normal Active ROM Skin: Warm, Dry. No rashes or lesions. Neuro: Normal Muscle tone, No focal neurological deficits. Psych: Awake, Alert, & Oriented x3. Appropriate mood and affect. Const Vital Signs, click to edit/add: Vital Signs - 24 hr 12/22/23 19:59 12/22/23 20:18 12/22/23 20:22 Temperature 97.0 F L Pulse Rate 45 L 45 L Pulse Rate [Pulse Oximeter] 105 H Respiratory Rate 20 20 Blood Pressure 194/83 H Blood Pressure [Right Upper Arm] 219/91 H Pulse Oximetry 96 95 96 Oxygen Delivery Method Room Air Room Air 12/22/23 20:30 12/22/23 21:19 12/22/23 21:30 Temperature Pulse Rate 43 L 41 L 48 L Pulse Rate [Pulse Oximeter] Respiratory Rate Blood Pressure Blood Pressure [Right Upper Arm] Pulse Oximetry 94 97 94 Oxygen Delivery Method 12/22/23 21:33 Temperature Pulse Rate 51 L Pulse Rate [Pulse Oximeter] Respiratory Rate 18 Blood Pressure 166/80 H Blood Pressure [Right Upper Arm] Pulse Oximetry 96 Oxygen Delivery Method Room Air Course Vital Signs Vital signs: Initial Vital Signs Temperature 97.0 F L 12/22/23 19:59 Temperature Source Temporal Artery Scan 12/22/23 19:59 Pulse Rate 105 H 12/22/23 19:59 Respiratory Rate 20 12/22/23 19:59 Blood Pressure 219/91 H 12/22/23 19:59 Blood Pressure Mean 133 H 12/22/23 19:59 Blood Pressure Position Sitting 12/22/23 19:59 Pulse Oximetry 96 12/22/23 19:59 Oxygen Delivery Method Room Air 12/22/23 19:59 Vital Signs Temperature 97.0 F L 12/22/23 19:59 Pulse Rate 105 H 12/22/23 19:59 Respiratory Rate 20 12/22/23 19:59 Blood Pressure 219/91 H 12/22/23 19:59 Pulse Oximetry 96 12/22/23 19:59 Oxygen Delivery Method Room Air 12/22/23 19:59 Temperature 97.0 F L 12/22/23 19:59 Pulse Rate 69 12/22/23 23:03 Respiratory Rate 18 12/22/23 23:03 Blood Pressure 143/71 H 12/22/23 23:03 Pulse Oximetry 96 12/22/23 23:03 Oxygen Delivery Method Room Air 12/22/23 23:03 Medications Administered Medications: Discontinued Medications Generic Name Dose Route Start Last Admin Trade Name Freq PRN Reason Stop Dose Admin Ketorolac Tromethamine 15 mg 12/22/23 20:24 12/22/23 20:39 Ketorolac 15 Mg/Ml Inj IVP 12/22/23 20:25 15 mg ONCE ONE Administration MDM - Chest Pain MDM Narrative Medical decision making narrative: Patient is a 68-year-old female presenting to emergency department for high blood pressure and chest pain. She is also having some back pain. Back pain is mid spinal with no recent injury so I do not believe imaging is necessary. Toradol given for pain. With her chest pain were ordered EKG, troponin. She is having some shortness of breath so D-dimer will be ordered to look for signs of a PE. BNP also ordered. Also order CBC, BMP, magnesium, chest x-ray. EKG shows sinus rhythm with frequent PVCs. On the EKG it says 100 beats per minute but that is counting the PVCs. Normal beats are 42 beats per minute. Otherwise looks similar previous EKG on file. Troponin shows no concerning abnormalities. CBC, CBC, magnesium 0 showed no concerning findings. She is very mildly elevated white blood cell count 12.2 for but no signs of infection. D-dimer within normal limits. BNP is 1170 which is similar to what was last week. She is not having lower extremity edema and does not appear to be in heart failure. COVID shows flu/RSV is negative. Chest x-ray viewed by myself and radiologist showed no acute concerning abnormalities. Well the heart rate monitor is reading from 70s 10 90s for her heart rates this is likely secondary to the PVCs. A manual heart rate shows these are non perfusing PVCs. Pulse ox also shows a heart rate in the 40s. Chest pain and shortness of breath have now resolved along with the back pain after Toradol. Considering everything I will speak to [facility] on their recommendations. After speaking to them was recommended to start Neuro Vasc and they were further evaluate her PVC load with her Zio patch that she is billing and tomorrow. And I will start her on 5 mg of Norvasc. She will follow-up with cardiology and primary care provider. Repeat troponin within normal limits. Lab Data Labs: Lab Results 12/22/23 12/22/23 12/22/23 Range/Units 20:15 20:25 20:35 WBC 12.24 H (4.50-11.00) K/uL RBC 5.16 (4.00-5.20) m/uL Hgb 15.7 (12.0-16.0) gm/dL Hct 46.8 (33.0-51.0) % MCV 91 (80-100) fL MCH 30 (26-34) pg MCHC 34 (32-36) gm/dL RDW Coeff of Erin 12.1 (11.5-15.5) % Plt Count 241 (140-440) K/uL Neut % (Auto) 64.9 (42.0-72.0) % Lymph % (Auto) 27.3 (20-44) % Tripp % (Auto) 6.3 (0.0-11.0) % Eos % (Auto) 1.1 (0.0-7.0) % Baso % (Auto) 0.2 (0.0-3.0) % Neut # (Auto) 7.90 H (1.7-7.0) K/uL Lymph # (Auto) 3.30 H (0.90-2.90) K/uL Tripp # (Auto) 0.80 (0.00-0.90) K/UL Eos # (Auto) 0.10 (0.00-0.50) K/uL Baso # (Auto) 0.00 (0.00-0.30) K/uL Abs Immat Gran (auto) 0.00 (0.00-0.30) K/uL Imm/Tot Granulo (auto) 0.2 % D-Dimer Quant (PE/DVT) 0.37 (0.00-0.50) ug/ml Sodium 139 (135-149) mmol/L Potassium 4.1 (3.6-5.1) mmol/L Chloride 107 (96-114) mmol/L Carbon Dioxide 23 (20-32) mmol/L Anion Gap 9 (7-15) mEq/L BUN 25 (7-30) mg/dL Creatinine 0.9 (0.5-1.5) mg/dL Estimated Creat Clear 49.12 Estimated GFR 70 ml/min Glucose 127 H (60-115) mg/dL Calcium 9.0 (8.4-10.6) mg/dL Magnesium 2.0 (1.5-2.6) mg/dL Troponin I < 0.01 L (0.01-0.04) ng/mL NT-Pro-B Natriuret Pep 1170 pg/mL SARS-CoV-2 (PCR) Negative SARS-CoV-2 (Negative) Influenza Type A (PCR) Negative PCR FLU A (Negative) Influenza Type B (PCR) Negative PCR FLU B (Negative) RSV (PCR) Negative PCR RSV (Negative) Lab Acknowledgement POC Troponin I 0.01 (0.01-0.04) ng/ml 12/22/23 12/22/23 12/22/23 Range/Units 21:35 22:25 22:30 WBC (4.50-11.00) K/uL RBC (4.00-5.20) m/uL Hgb (12.0-16.0) gm/dL Hct (33.0-51.0) % MCV (80-100) fL MCH (26-34) pg MCHC (32-36) gm/dL RDW Coeff of Rein (11.5-15.5) % Plt Count (140-440) K/uL Neut % (Auto) (42.0-72.0) % Lymph % (Auto) (20-44) % Tripp % (Auto) (0.0-11.0) % Eos % (Auto) (0.0-7.0) % Baso % (Auto) (0.0-3.0) % Neut # (Auto) (1.7-7.0) K/uL Lymph # (Auto) (0.90-2.90) K/uL Tripp # (Auto) (0.00-0.90) K/UL Eos # (Auto) (0.00-0.50) K/uL Baso # (Auto) (0.00-0.30) K/uL Abs Immat Gran (auto) (0.00-0.30) K/uL Imm/Tot Granulo (auto) % D-Dimer Quant (PE/DVT) (0.00-0.50) ug/ml Sodium (135-149) mmol/L Potassium (3.6-5.1) mmol/L Chloride (96-114) mmol/L Carbon Dioxide (20-32) mmol/L Anion Gap (7-15) mEq/L BUN (7-30) mg/dL Creatinine (0.5-1.5) mg/dL Estimated Creat Clear Estimated GFR ml/min Glucose (60-115) mg/dL Calcium (8.4-10.6) mg/dL Magnesium (1.5-2.6) mg/dL Troponin I < 0.01 L (0.01-0.04) ng/mL NT-Pro-B Natriuret Pep pg/mL SARS-CoV-2 (PCR) (Negative) Influenza Type A (PCR) (Negative) Influenza Type B (PCR) (Negative) RSV (PCR) (Negative) Lab Acknowledgement Test Added POC Troponin I 0.01 (0.01-0.04) ng/ml ECG Data Attestation: I personally reviewed and interpreted this ECG as follows: Prior ECG tracings: available for review Interpretation: EKG shows sinus rhythm with frequent PVCs and fusion complexes. With the PVCs the heart rates when he beats per minute but the perfusing beats show a heart rate of 42 beats per minute. Left axis deviation. Otherwise normal intervals, no ST or T-wave abnormalities. Appears similar to previous EKG on file Discharge Plan Discharge Clinical Impression: Bradycardia, Premature ventricular contractions Patient Disposition: Home, Self-Care Condition: Improved Instructions: Bradycardia (ED), Premature Ventricular Contractions (ED) Additional Instructions: You will be started on a new blood pressure medication. Start it tomorrow snehal arthur. Continue to monitor your blood pressure as long as your heart rate does not go down to the 30s and you are not having symptoms of lightheadedness, chest pain, or any other concerning symptoms. If your blood pressure stays under 220/120 you're safe to follow up with your primary care provider and Cardiology. But if any of the previously mentioned symptoms occur, return to emergency department for re-evaluation. Prescriptions: New amlodipine [Norvasc] 5 mg tablet 5 mg PO DAILY Qty: 30 0RF No Action amoxicillin 500 mg capsule 2,000 mg PO cholecalciferol (vitamin D3) 125 mcg (5,000 unit) tablet 5,000 unit PO DAILY ibuprofen 200 mg tablet PO Q6-8H PRN triamcinolone acetonide 0.1 % ointment 1 applic topical QDAY Qty: 30 0RF estradiol 0.01 % (0.1 mg/gram) cream 1 appful vaginal QDAY Qty: 42.5 0RF Rx Instructions: for 14 days phenazopyridine [Pyridium] 200 mg tablet 200 mg PO TID Qty: 14 0RF Eliquis 5 mg tablet 5 mg PO BID Follow Up/Referrals: Kelechi Avitia MD [Primary Care Provider] - Stand Alone Forms: [facility] [employer] Info Instructions
[2023-12-22 21:23] LABS: PCR FLU A Negative PCR FLU A (Negative); PCR FLU B Negative PCR FLU B (Negative); PCR RSV Negative PCR RSV (Negative); SARS PCR* Negative SARS-CoV-2 (Negative)
[2023-12-22 22:48] LABS: Troponin, Point-of-Care* 0.01 ng/ml (0.01-0.04)
[2023-12-22 23:23] LABS: Troponin I* < 0.01 ng/mL (0.01-0.04)
== END 2023-12-22 23:18 | disposition home or self-care (01) ==
PROVIDERS: Emergency Provider Student in an Organized Health Care Education/Training Program; PCP Internal Medicine
DX: I49.3 Ventricular premature depolarization (principal)
CPT/HCPCS: 36415; 71046; 80048; 83735; 83880; 84484; 85025; 85379; 87631; 93005; 96374; 99283; 99284; 99285; J1885

== ENCOUNTER 2023-12-26 13:31 | Emergency (ER) | payer MEDICARE, BC, SELFPAY ==
[2023-12-26] VITALS (19 sets, daily range): BP systolic 110–163; BP diastolic 58–118; PULSE 76–149; RESP 12–28; TEMP 36.3; O2SAT 94–98; BMI 38.3
--- OUTSIDE RECORDS SUMMARY | 2023-12-26 14:20 | XMS_ITS | Clinical Summary ---
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 180 Tablet 3 12/11/2023 Active oxyCODONE-acetami nophen, 5-325 mg, (PERCOCET) per tablet Take 1 to 2 tablets orally every 4-6 hours as needed for pain. Max acetaminophen dose: 4000mg in 24 hrs. 0 08/27/2012 4 Discontinu ed(*Patien t states no longer taking) cyclobenzaprine (FLEXERIL) 10 mg tablet Take 1 tablet by mouth every 8 hours if needed for Muscle Spasm. 30 tablet 0 08/28/2012 4 Discontinu ed(*Patien t states no longer taking) sotaloL (BETAPACE) 80 mg tabletIndications :PVC's (premature ventricular contractions),Per sistent atrial fibrillation (HC) Take 1 Tablet (80 mg) by mouth every 12 hours. 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 04/15/2011 05/03/2011 Encounters Date Type Department Care Team Description 12/26/2023 Orders Only [facility] [address] [place] [address] Lilo Shabazz RN <No scans attached> 12/26/2023 Telephone [facility] [address] [place] [address] Lilo Shabazz RN EP follow-up/EKG 12/11/2023 9:16 AM CDT Anesthesia Event [facility] [address] [place] [address] Jeimy Kim MD 12/10/2023 11:26 AM CDT - 12/11/2023 5:11 PM CDT Hospital Encounter [facility] [address] [place] [address] [facility] [place] Lilo Barnes MD Residents, B2 Atrial flutter with rapid ventricular response (HC) (Primary Dx); PVC's (premature ventricular contractions); Persistent atrial fibrillation (HC) Discharge Disposition: Home Self Care 12/10/2023 Travel 12/10/2023 Telephone [facility] [address] [place] [address] Quique Garcia MD Fast Heartbeat (and CHF) [...] CDT ECHOCARDIOGRAM KERRY SORIA ? Accession#: ?? [id number] : ?1955 68 years Study Date: ?? 12/11/2023 1:09:34 PM Gender: F ?BP: ? 121/62 mmHg Height: 162.00 cm ?BSA: ?2.15 m? ? ? Weight: 114.00 kg ?Tech: ? OLL/CM ? Referring MD: DARRELL DOAN Site: ? [facility] Reading Location: [facility] Patient Location: Inpatient. Procedure: Limited Spectral [...] . This study was interpreted by an [facility] accredited facility. ??Final ?? Procedure Note Sushant Zee MD - 12/11/2023 ECHOCARDIOGRAM KERRY SORIA : 1955 68 years Study Date: 12/11/2023 1:09:34 PM Gender: F BP: 121/62 mmHg Height: 162.00 cm BSA: 2.15 m? ? ? Weight: 114.00 kg Tech: OLL/CM Referring MD: DARRELL DOAN Site: [facility] Reading Location: [facility]W IP Patient [...] . This study was interpreted by an [facility] accredited facility. Final Darrell CRENSHAW ECHO ORD * SCAN-CARDIAC STRIP (12/11/2023 1:05 PM CDT) Scanner OTHER * ECHO ANA WO CONTRAST W COLOR W LTD DOPPLER (12/11/2023 9:36 AM CDT) Anatomical Region Laterality Modality Ultrasound 12/11/2023 7:57 AM CDT Narrative 12/11/2023 9:40 AM CDT TRANSESOPHAGEAL ECHOCARDIOGRAM KERRY SORIA ? Accession#: ?? [id number] : ?1955 68 years Study Date: ?? 12/11/2023 7:57:19 AM Gender: F ?BP: ? 138/79 mmHg Height: 163.00 cm ?BSA: ?2.17 m? ? ? Weight: 115.00 kg ?Tech: ? Dr Del Real ? Referring MD: OMID LOCK Site: ? [facility] Reading Location: Patient Location: Inpatient. [...] . This study was interpreted by an [facility] accredited facility. ??Final ?? Procedure Note Rikki Del Real MD - 12/11/2023 TRANSESOPHAGEAL ECHOCARDIOGRAM KERRY SORAI : 1955 68 years Study Date: 12/11/2023 7:57:19 AM Gender: F BP: 138/79 mmHg Height: 163.00 cm BSA: 2.17 m? ? ? Weight: 115.00 kg Tech: Dr Nasima Wei MD: OMID LOCK Site: [facility] Reading Location: Patient Location: Inpatient. [...] . This study was interpreted by an [facility] accredited facility. 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 * EKG 12 LEAD (12/11/2023 [...] NOW QTc 472 ms BEYOND NOW P Ronceverte 31 degrees BEYOND NOW R Ronceverte -27 degrees BEYOND NOW T Ronceverte 105 degrees BEYOND NOW 12/11/2023 9:33 AM CDT 12/11/2023 8:27 PM CDT Narrative BEY[facility] NOW - 12/11/2023 8:27 PM CDT Test Indication: POST CARDIO Rikki Del Real MD EKG ORD Performing Organization Address [facility] Co de Phone Number BEYOND NOW [place], [place] * T4,FREE (12/11/2023 2:13 AM CDT) T4,FREE 1.28 0.93 - 1.70 ng/dL 12/11/2023 7:59 AM CDT [facility] Blood BLOOD SPECIMEN / Unknown Butterfly / Unknown 12/11/2023 2:13 AM CDT 12/11/2023 2:24 AM CDT Herminio King MD CHEMISTRY Performing Organization Address City/[facility]/ZIP Co de Phone Number [facility] [address] [place] [address], [place] * MAGNESIUM (12/11/2023 2:13 AM CDT) MAGNESIUM 1.9 1.6 - 2.4 mg/dL 12/11/2023 2:44 AM CDT [facility] Blood BLOOD SPECIMEN / Unknown Butterfly / Unknown 12/11/2023 2:13 AM CDT 12/11/2023 2:24 AM CDT Yvette Marlow MD CHEMISTRY [facility] [address] [place] [address], * SCAN-CARDIAC STRIP (12/11/2023 1:54 AM CDT) Scanner OTHER * SCAN-CARDIAC STRIP (12/11/2023 1:21 AM CDT) Scanner OTHER * SCAN-CARDIAC STRIP (12/11/2023 12:00 AM CDT) Narrative 12/11/2023 12:00 AM CDT Ordered by an unspecified provider. Other Clinical Staff OTHER * (ABNORMAL) TSH FOR ADD ON (12/10/2023 3:48 PM CDT) Pathologist [facility] TSH 5.15(H) 0.27 - 4.20 uIU/mL 12/10/2023 4:50 PM CDT [facility] Blood BLOOD SPECIMEN / Unknown Venipuncture / Unknown 12/10/2023 3:48 PM CDT 12/10/2023 3:54 PM CDT Narrative [facility] - 12/10/2023 4:50 PM CDT In Adults, TSH values between 5.00 and 10.00 uIU/ml do not necessarily indicate the presence of Hypothyroidism. Correlation with clinical findings such as presence of goiter and/or Thyroperoxidase (TPO) Antibody may be helpful. For more information please refer to JOSE MARIA 2004; 291: 228-238. Herminio King MD CHEMISTRY [facility] [address] [place] [address], [place] * (ABNORMAL) Lipid Panel AM (12/10/2023 3:48 PM CDT) CHOLESTEROL,TOTAL 162 100 - 199 mg/dL 12/10/2023 4:50 PM CDT [facility] Comment: Cholesterol, Total Reference Ranges Desirable <200 mg/dL Borderline 200-239 mg/dL High >=240 mg/dL TRIGLYCERIDES 134 <150 mg/dL 12/10/2023 4:50 PM CDT [facility] HDL CHOLESTEROL 30(L) >40 mg/dL 4:50 PM CDT [facility] NON-HDL CHOLESTEROL 132 <145 mg/dl 12/10/2023 4:50 PM CDT [facility] CHOL/HDL RATIO 5.40(H) <4.50 12/10/2023 4:50 PM CDT [facility] LDL CHOLESTEROL 105 <=130 mg/dL 12/10/2023 4:50 PM CDT [facility] VLDL CHOLESTEROL 27 <=30 mg/dL 12/10/2023 4:50 PM CDT [facility] Blood BLOOD SPECIMEN / Unknown Venipuncture / Unknown 12/10/2023 3:48 PM CDT 12/10/2023 3:54 PM CDT Herminio King MD CHEMISTRY [facility] [address] [place] [address], [place] * (ABNORMAL) Basic metabolic panel TODAY (12/10/2023 3:48 PM CDT) SODIUM 140 136 - 145 mmol/L 12/10/2023 4:18 PM CDT [facility] POTASSIUM 4.7 3.5 - 5.1 mmol/L 12/10/2023 4:18 PM CDT [facility] CHLORIDE 107 98 - 107 mmol/L 12/10/2023 4:18 PM CDT [facility] CO2,TOTAL 23 22 - 29 mmol/L 12/10/2023 4:18 PM CDT [facility] ANION GAP 10 5 - 18 12/10/2023 4:18 PM CDT [facility] GLUCOSE 110(H) 70 - 99 mg/dL 12/10/2023 4:18 PM CDT [facility] CALCIUM 8.8 8.8 - 10.2 mg/dL 12/10/2023 4:18 PM CDT [facility] BUN 13 8 - 23 mg/dL 12/10/2023 4:18 PM CDT [facility] CREATININE 0.92(H) 0.50 - 0.90 mg/dL 12/10/2023 4:18 PM CDT [facility] BUN/CREAT RATIO 14 10 - 20 4:18 PM CDT [facility] eGFR 68(L) >90 mL/min/1.7 3m2 12/10/2023 4:18 PM CDT [facility] Comment:As of 2021, [...] 12/10/2023 3:54 PM CDT Darrell CRENSHAW CHEMISTRY [facility] [address] [place] [address], * Screening hemoglobin A1c FOR ADD ON (12/10/2023 3:47 PM CDT) HEMOGLOBIN A1C SCREENING 6.1 <=6.4 % 12/10/2023 5:49 PM CDT [facility] Blood BLOOD SPECIMEN / Unknown Venipuncture / Unknown 12/10/2023 3:47 PM CDT 12/10/2023 3:54 PM CDT Narrative [facility] - 12/10/2023 5:49 PM CDT ? (<5.7%) ?Normal ? (5.7% to 6.4%) ? Indicates prediabetes ? (>=6.5%) ? Confirms diabetes Falsely low levels may be seen with: Recent Transfusion, Recent Significant Blood Loss, Hemolytic Diseases, or Falsely elevated levels may be seen with: Untreated Anemias, Splenectomy Herminio King MD CHEMISTRY [facility] [address] [place] [address], * CBC no diff TODAY (12/10/2023 3:47 PM CDT) Pathologist [facility] WHITE BLOOD COUNT 8.9 4.5 - 11.0 thou/cu mm 12/10/2023 4:03 PM CDT [facility] RED BLOOD COUNT 4.63 4.00 - 5.20 mil/cu mm 12/10/2023 4:03 PM CDT [facility] HEMOGLOBIN 14.5 12.0 - 16.0 g/dL 12/10/2023 4:03 PM CDT [facility] HEMATOCRIT 41.6 33.0 - 51.0 % 12/10/2023 4:03 PM CDT [facility] MCV 90 80 - 100 fL 12/10/2023 4:03 PM CDT [facility] MCH 31.3 26.0 - 34.0 pg 12/10/2023 4:03 PM CDT [facility] MCHC 34.9 32.0 - 36.0 g/dL 12/10/2023 4:03 PM CDT [facility] RDW 12.6 11.5 - 15.5 % 12/10/2023 4:03 PM CDT [facility] PLATELET COUNT 208 140 - 440 thou/cu mm 12/10/2023 4:03 PM CDT [facility] MPV 10.6 6.5 - 11.0 fL 12/10/2023 4:03 PM CDT [facility] NRBC 0.0 % 12/10/2023 4:03 PM CDT [facility] ABS NRBC 0.0 thou /cu mm 12/10/2023 4:03 PM CDT [facility] Blood BLOOD SPECIMEN / Unknown Venipuncture / Unknown 12/10/2023 3:47 PM CDT 12/10/2023 3:54 PM CDT Darrell CRENSHAW HEMATOLOGY [facility] 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 PCP - General 02/06/23
[2023-12-26] MEDS: PROPOFOL 10 MG/ML INJ 200 MG IVP (14:48)
--- NOTE | 2023-12-26 15:01 | ED.GENADULT ---
HPI - General Adult General Date Seen: 12/26/23 <Ana Amador MD - Last Filed: 12/26/23 16:50> Chief complaint: Arrhythmia/Palpitations <Ana Amador MD - Last Filed: 12/26/23 16:50> Stated complaint: Tachycardia <Ana Amador MD - Last Filed: 12/26/23 16:50> Time Seen by Provider: 12/26/23 13:37 <Ana Amador MD - Last Filed: 12/26/23 16:50> Source: patient, RN notes reviewed and old records reviewed <Ana Amador MD - Last Filed: 12/26/23 16:50> Mode of arrival: ambulatory <Ana Amador MD - Last Filed: 12/26/23 16:50> Limitations: no limitations <nAa Amador MD - Last Filed: 12/26/23 16:50> History of Present Illness HPI narrative: Patient is a 68-year-old woman sent here from clinic after having an EKG there that showed atrial flutter with a rate of 150. She had a flutter couple of weeks ago, was transferred up to [place] and had a ANA which was negative, was started on Eliquis and sotalol, and was cardioverted. She was then seen here earlier this week and was bradycardic, with the rate of 100 but in bigeminy with non perfused PVCs. Cardiology was consulted and the sotalol was discontinued. She was started on Norvasc, 5 mg daily. She says she has an appointment with Dr. Avitia on Friday, seen in the ER here on Friday. Went in today for an EKG per their recommendation. She has had a ZIO patch on, does not know how that was read. She feels a little bit short of breath, otherwise asymptomatic. Denies any symptoms of acute illness such as fevers, vomiting, diarrhea, black stools, etcetera. Labs checked on the are reviewed, within normal limits. <Ana Amador MD - Last Filed: 12/26/23 16:50> Related Data Home medications: Home Medications ?Medication ?Instructions ?Recorded ?Confirmed cholecalciferol (vitamin D3) 125 5,000 unit PO DAILY 01/25/22 12/29/23 mcg (5,000 unit) tablet apixaban 5 mg tablet (Eliquis) 5 mg PO BID 12/14/23 12/29/23 amoxicillin 500 mg capsule 2,000 mg PO 12/23/23 12/29/23 Previous Rx's ?Medication ?Instructions ?Recorded triamcinolone acetonide 0.1 % 1 applic topical QDAY #30 grams 02/11/23 topical ointment <Ana Amador MD - Last Filed: 12/26/23 16:50> Allergies/adverse reactions: Allergies Allergy/AdvReac Type Severity Reaction Status Date / Time oxycodone Allergy Severe Full body Verified 12/29/23 12:40 rash erythromycin base Allergy Unknown Verified 12/29/23 12:40 iodine Allergy Unknown Verified 12/29/23 12:40 <Ana Amador MD - Last Filed: 12/26/23 16:50> Review of Systems Status of ROS: Reports: 10 or more systems reviewed and unremarkable except as noted in History and below <Ana Amador MD - Last Filed: 12/26/23 16:50> [facility] Medical History: Medical History Bradycardia ?R00.1 - Bradycardia, unspecified (ICD-10) Fatty liver ?K76.0 - Fatty (change of) liver, not elsewhere classified (ICD-10) Impaired fasting glucose ?R73.01 - Impaired fasting glucose (ICD-10) Patent foramen ovale ?Q21.12 - Patent foramen ovale (ICD-10) Congestive heart failure ?I50.9 - Heart failure, unspecified (ICD-10) Atrial flutter (12/10/23) ?I48.92 - Unspecified atrial flutter (ICD-10) Atrophic vulvovaginitis ?N95.2 - Postmenopausal atrophic vaginitis (ICD-10) Pelvic pain ?R10.2 - Pelvic and perineal pain (ICD-10) Chronic back pain ?M54.9 - Dorsalgia, unspecified (ICD-10) ?G89.29 - Other chronic pain (ICD-10) Obesity ?E66.9 - Obesity, unspecified (ICD-10) Type 2 diabetes mellitus ?E11.9 - Type 2 diabetes mellitus without complications (ICD-10) Bilateral hand pain ?M79.641 - Pain in right hand (ICD-10) ?M79.642 - Pain in left hand (ICD-10) JAIME (stress urinary incontinence, female) ?N39.3 - Stress incontinence (female) (male) (ICD-10) Vitamin D deficiency ?E55.9 - Vitamin D deficiency, unspecified (ICD-10) Subclinical hypothyroidism ?E03.8 - Other specified hypothyroidism (ICD-10) Lung nodule ?R91.1 - Solitary pulmonary nodule (ICD-10) History of dermatitis ?Z87.2 - Personal history of diseases of the skin and subcutaneous tissue (ICD-10) History of adenomatous polyp of colon ?Z86.010 - Personal history of colonic polyps (ICD-10) Essential hypertension ?I10 - Essential (primary) hypertension (ICD-10) Dyslipidemia ?E78.5 - Hyperlipidemia, unspecified (ICD-10) Carcinoma of vulva ?C51.9 - Malignant neoplasm of vulva, unspecified (ICD-10) <Ana Amador MD - Last Filed: 12/26/23 16:50> Surgical History: Surgical History History of cardioversion ?Z92.89 - Personal history of other medical treatment (ICD-10) History of total replacement of both hip joints ?Z96.643 - Presence of artificial hip joint, bilateral (ICD-10) History of tubal ligation ?Z98.51 - Tubal ligation status (ICD-10) History of total knee replacement (04/12/11) ?Z96.659 - Presence of unspecified artificial knee joint (ICD-10) History of endometrial ablation (2005) ?Z98.890 - Other specified postprocedural states (ICD-10) History of cholecystectomy (1993) ?Z90.49 - Acquired absence of other specified parts of digestive tract (ICD-10) History of carpal tunnel release ?Z98.890 - Other specified postprocedural states (ICD-10) <Ana Amador MD - Last Filed: 12/26/23 16:50> Family History: Family History Mother Dementia Diabetes Hypothyroidism Father High blood pressure Nonmelanoma skin cancer Uncle Stroke <Ana Amador MD - Last Filed: 12/26/23 16:50> Social History: Social History Narrative: Does not exercise due to knee pain , 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 [employer] Non-smoker- quit age 37, 15 pack years Rarely consumes alcohol What is your current living situation?: I presently have a place to live Problems where you live: no known problems In the past 12 months, utilities in danger of being shut off: no In past 12 months, lack of transportation kept you from medical appts, meetings, work, or getting things needed for daily living: no In the past 12 mos, have been you worried that your food would run out before you had money to buy more?: never true In the past 12 mos, the food you bought just didn't last and you didn't have money to buy more?: never true Smoking Status: Former smoker Second hand tobacco smoke exposure: No How often do you have a drink containing alcohol: never AUDIT-C Alcohol total score: 0 Non-prescribed substance use: denies use How often does anyone, including family, friends and others, physically hurt you: never How often does anyone, including family, friends and others, insult or talk down to you: never How often does anyone, including family, friends and others, threaten you with harm: never How often does anyone, including family, friends and others, scream or curse at you: never Little interest or pleasure in doing things: not at all Feeling down, depressed, or hopeless: not at all <Ana Amador MD - Last Filed: 12/26/23 16:50> Exam Narrative: Exam Narrative: Vital signs as noted above. In general, an alert, well-appearing patient. Head: Normocephalic, atraumatic. Eyes: Pupils are equal reactive. Extraocular movements are full. Conjunctivae are normal. ENT: Mucous membranes are moist. Throat is normal. Neck: Supple without lymphadenopathy. Heart: Tachycardic and regular. No significant murmur. Lungs: Clear bilaterally. No increased work of breathing, crackles or wheezes. Abdomen: Soft and nontender. Extremities: Well perfused. Trace edema bilaterally. No calf tenderness. Pulses intact. Neurologic: Patient is alert and oriented to person and place. Speech is fluent. Face is symmetric. Moves all extremities equally. Affect: Normal. Skin: Warm and dry. Well perfused. <Ana Amador MD - Last Filed: 12/26/23 16:50> Const: Vital Signs, click to edit/add: Vital Signs - 24 hr 12/26/23 13:39 12/26/23 13:40 12/26/23 13:41 Temperature 97.4 F L Pulse Rate 148 H 149 H Pulse Rate [Pulse Oximeter] 147 H Respiratory Rate 20 Blood Pressure 140/118 H Blood Pressure [Le ft Upper Arm] 140/118 H Pulse Oximetry 95 95 95 Oxygen Delivery Me thod Room Air Oxygen Flow Rate 12/26/23 14:02 12/26/23 14:07 12/26/23 14:11 Temperature Pulse Rate 147 H 147 H Pulse Rate [Pulse Oximeter] Respiratory Rate Blood Pressure 132/115 H Blood Pressure [Le ft Upper Arm] Pulse Oximetry 96 94 95 Oxygen Delivery Me thod Nasal Cannula Oxygen Flow Rate 2 12/26/23 14:30 12/26/23 14:32 12/26/23 14:47 Temperature Pulse Rate 146 H 148 H 148 H Pulse Rate [Pulse Oximeter] Respiratory Rate 18 14 22 Blood Pressure 142/110 H 163/111 H Blood Pressure [Le ft Upper Arm] Pulse Oximetry 96 97 97 Oxygen Delivery Me thod Oxygen Flow Rate 12/26/23 14:53 12/26/23 14:58 12/26/23 15:00 Temperature Pulse Rate 78 94 87 Pulse Rate [Pulse Oximeter] Respiratory Rate 28 H 25 H 27 H Blood Pressure 138/100 H 110/58 L Blood Pressure [Le ft Upper Arm] Pulse Oximetry 94 96 96 Oxygen Delivery Me thod Oxygen Flow Rate 12/26/23 15:03 12/26/23 15:07 12/26/23 15:08 Temperature Pulse Rate 88 76 88 Pulse Rate [Pulse Oximeter] Respiratory Rate 23 24 17 Blood Pressure 112/58 L 123/80 Blood Pressure [Le ft Upper Arm] Pulse Oximetry 96 96 96 Oxygen Delivery Me thod Oxygen Flow Rate 12/26/23 15:13 12/26/23 15:18 12/26/23 15:30 Temperature Pulse Rate 90 84 88 Pulse Rate [Pulse Oximeter] Respiratory Rate 21 12 Blood Pressure 129/65 134/67 Blood Pressure [Le ft Upper Arm] Pulse Oximetry 98 97 95 Oxygen Delivery Me thod Oxygen Flow Rate 12/26/23 15:33 Temperature Pulse Rate 82 Pulse Rate [Pulse Oximeter] Respiratory Rate Blood Pressure 136/73 Blood Pressure [Le ft Upper Arm] Pulse Oximetry 96 Oxygen Delivery Me thod Oxygen Flow Rate <Ana Amador MD - Last Filed: 12/26/23 16:50> Vital Signs, click to edit/add: Vital Signs - 24 hr 12/26/23 13:39 12/26/23 13:40 12/26/23 13:41 Temperature 97.4 F L Pulse Rate 148 H 149 H Pulse Rate [Pulse Oximeter] 147 H Respiratory Rate 20 Blood Pressure 140/118 H Blood Pressure [Le ft Upper Arm] 140/118 H Pulse Oximetry 95 95 95 Oxygen Delivery Me thod Room Air Oxygen Flow Rate 12/26/23 14:02 12/26/23 14:07 12/26/23 14:11 Temperature Pulse Rate 147 H 147 H Pulse Rate [Pulse Oximeter] Respiratory Rate Blood Pressure 132/115 H Blood Pressure [Le ft Upper Arm] Pulse Oximetry 96 94 95 Oxygen Delivery Me thod Nasal Cannula Oxygen Flow Rate 2 12/26/23 14:30 12/26/23 14:32 12/26/23 14:47 Temperature Pulse Rate 146 H 148 H 148 H Pulse Rate [Pulse Oximeter] Respiratory Rate 18 14 22 Blood Pressure 142/110 H 163/111 H Blood Pressure [Le ft Upper Arm] Pulse Oximetry 96 97 97 Oxygen Delivery Me thod Oxygen Flow Rate 12/26/23 14:53 12/26/23 14:58 12/26/23 15:00 Temperature Pulse Rate 78 94 87 Pulse Rate [Pulse Oximeter] Respiratory Rate 28 H 25 H 27 H Blood Pressure 138/100 H 110/58 L Blood Pressure [Le ft Upper Arm] Pulse Oximetry 94 96 96 Oxygen Delivery Me thod Oxygen Flow Rate 12/26/23 15:03 12/26/23 15:07 12/26/23 15:08 Temperature Pulse Rate 88 76 88 Pulse Rate [Pulse Oximeter] Respiratory Rate 23 24 17 Blood Pressure 112/58 L 123/80 Blood Pressure [Le ft Upper Arm] Pulse Oximetry 96 96 96 Oxygen Delivery Me thod Oxygen Flow Rate 12/26/23 15:13 05/31/24 15:18 12/26/23 15:30 Temperature Pulse Rate 90 84 88 Pulse Rate [Pulse Oximeter] Respiratory Rate 21 12 Blood Pressure 129/65 134/67 Blood Pressure [Le ft Upper Arm] Pulse Oximetry 98 97 95 Oxygen Delivery Me thod Oxygen Flow Rate 12/26/23 15:33 Temperature Pulse Rate 82 Pulse Rate [Pulse Oximeter] Respiratory Rate Blood Pressure 136/73 Blood Pressure [Le ft Upper Arm] Pulse Oximetry 96 Oxygen Delivery Me thod Oxygen Flow Rate <Sherif Ricketts MD - Last Filed: 01/07/24 23:10> Documenting provider has reviewed patient's vital signs: yes <Ana Amador MD - Last Filed: 12/26/23 16:50> Course Course ED Course: EKG from clinic was reviewed, that showed atrial flutter with a variable block, rate of 150. She was maintained on the monitor, IV established. I talked with Cardiology at [place], he felt that since she had a negative ANA and has been taking her Eliquis faithfully since then it would be reasonable to cardiovert today. I discussed this option with her and she would like to proceed. We discussed risks and benefits including over-sedation, need for airway management, aspiration, failure to convert and malignant dysrhythmias. Consent signed. Procedure note: Patient was maintained on the cardiac and oximetry as well as end-tidal CO2 monitoring. Respiratory therapy was present as well. Dr. Ricketts provided sedation, please see his note for details. She was successfully sedated with propofol and then cardioverted at 200 joules. She did briefly go back into atrial fibrillation, and then settled in to her bigeminal rhythm, with a rate in the 90s. Awakened without difficulty. She feels well after cardioversion. She is sometimes in a bigeminal rhythm with a rate of 90, at other times she is in a sinus rhythm in the 70s to 80s. Apparently her Norvasc was also discontinued this past week. For now, I have just suggested that she stay on the Eliquis, cardiology did not recommend restarting an antiarrhythmic from the ER. This will need to be discussed at a cardiology visit. Follow-up with primary care on Friday as planned, then with Cardiology. Return to the ER at any time for recurrent symptoms. <Ana Amador MD - Last Filed: 12/26/23 16:50> Vital Signs Vital signs: Initial Vital Signs Temperature 97.4 F L 12/26/23 13:39 Temperature Source Temporal Artery Scan 12/26/23 13:39 Pulse Rate 147 H 12/26/23 13:39 Respiratory Rate 20 12/26/23 13:39 Blood Pressure 140/118 H 12/26/23 13:39 Blood Pressure Mean 125 H 12/26/23 13:39 Blood Pressure Position Supine 12/26/23 13:39 Pulse Oximetry 95 12/26/23 13:39 Oxygen Delivery Method Room Air 12/26/23 13:39 Vital Signs Temperature 97.4 F L 12/26/23 13:39 Pulse Rate 147 H 12/26/23 13:39 Respiratory Rate 20 12/26/23 13:39 Blood Pressure 140/118 H 12/26/23 13:39 Pulse Oximetry 95 12/26/23 13:39 Oxygen Delivery Method Room Air 12/26/23 13:39 Temperature 97.4 F L 12/26/23 13:39 Pulse Rate 82 12/26/23 15:33 Respiratory Rate 12 12/26/23 15:18 Blood Pressure 136/73 12/26/23 15:33 Pulse Oximetry 96 12/26/23 15:33 Oxygen Delivery Method Nasal Cannula 12/26/23 14:07 Oxygen Flow Rate 2 12/26/23 14:07 <Ana Amador MD - Last Filed: 12/26/23 16:50> Initial Vital Signs Temperature 97.4 F L 12/26/23 13:39 Temperature Source Temporal Artery Scan 12/26/23 13:39 Pulse Rate 147 H 12/26/23 13:39 Respiratory Rate 20 12/26/23 13:39 Blood Pressure 140/118 H 12/26/23 13:39 Blood Pressure Mean 125 H 12/26/23 13:39 Blood Pressure Position Supine 12/26/23 13:39 Pulse Oximetry 95 12/26/23 13:39 Oxygen Delivery Method Room Air 12/26/23 13:39 Vital Signs Temperature 97.4 F L 12/26/23 13:39 Pulse Rate 147 H 12/26/23 13:39 Respiratory Rate 20 12/26/23 13:39 Blood Pressure 140/118 H 12/26/23 13:39 Pulse Oximetry 95 12/26/23 13:39 Oxygen Delivery Method Room Air 12/26/23 13:39 Temperature 97.4 F L 12/26/23 13:39 Pulse Rate 82 12/26/23 15:33 Respiratory Rate 12 12/26/23 15:18 Blood Pressure 136/73 12/26/23 15:33 Pulse Oximetry 96 12/26/23 15:33 Oxygen Delivery Method Nasal Cannula 12/26/23 14:07 Oxygen Flow Rate 2 12/26/23 14:07 <Sherif Ricketts MD - Last Filed: 01/07/24 23:10> Medications Administered Medications: Discontinued Medications Generic Name Dose Route Start Last Admin Trade Name Freq PRN Reason Stop Dose Admin Propofol 200 mg 12/26/23 13:48 12/26/23 14:48 Propofol 10 Mg/Ml Inj IVP 12/26/23 13:49 80 mg ONCE ONE Administration <Ana Amador MD - Last Filed: 12/26/23 16:50> Discontinued Medications Generic Name Dose Route Start Last Admin Trade Name Freq PRN Reason Stop Dose Admin Propofol 200 mg 12/26/23 13:48 12/26/23 14:48 Propofol 10 Mg/Ml Inj IVP 12/26/23 13:49 80 mg ONCE ONE Administration <Sherif Ricketts MD - Last Filed: 01/07/24 23:10> Discharge Plan Discharge Clinical Impression: Atrial flutter <Ana Amador MD - Last Filed: 12/26/23 16:50> Patient Disposition: Home, Self-Care <Ana Amador MD - Last Filed: 12/26/23 16:50> Condition: Improved <Ana Amador MD - Last Filed: 12/26/23 16:50> Instructions: Atrial Flutter (ED) <Ana Amador MD - Last Filed: 12/26/23 16:50> Additional Instructions: Continue to take her Eliquis daily. Continue Norvasc. Further recommendations to come from Cardiology. Follow up on Friday as planned. You will need Cardiology follow-up as well. <Ana Amador MD - Last Filed: 12/26/23 16:50> Prescriptions: No Action amoxicillin 500 mg capsule 2,000 mg PO cholecalciferol (vitamin D3) 125 mcg (5,000 unit) tablet 5,000 unit PO DAILY triamcinolone acetonide 0.1 % ointment 1 applic topical QDAY Qty: 30 0RF Eliquis 5 mg tablet 5 mg PO BID <Ana Amador MD - Last Filed: 12/26/23 16:50> Follow Up/Referrals: Kelechi Avitia MD [Primary Care Provider] - <Ana Amador MD - Last Filed: 12/26/23 16:50> Stand Alone Forms: [facility] Info Instructions <Ana Amador MD - Last Filed: 12/26/23 16:50> Procedures Procedural Sedation Pre procedure diagnosis: Atrial fibrillation with RVR <Sherif Ricketts MD - Last Filed: 01/07/24 23:10> Written consent by: patient <Sherif Ricketts MD - Last Filed: 01/07/24 23:10> Verification/time out: correct patient, correct site, correct procedure and time out performed <Sherif Ricketts MD - Last Filed: 01/07/24 23:10> Name of person perfmorming the procedure: Sherif Ricketts <Sherif Ricketts MD - Last Filed: 01/07/24 23:10> Indication: other (Cardioversion) <Sherif Ricketts MD - Last Filed: 01/07/24 23:10> ASA Class: III <Sherif Ricketts MD - Last Filed: 01/07/24 23:10> Time of Last PO Intake: 11:00 <Sherif Ricketts MD - Last Filed: 01/07/24 23:10> Mallampati classification: III. soft palate and base of uvula visible <Sherif Ricketts MD - Last Filed: 01/07/24 23:10> Preparation: gambling monitor applied, pulse oximeter, capnometry used, supplemental O2 applied, reversal agents at bedside, suction/airway equipment at bedside and IV secured <Sherif Ricketts MD - Last Filed: 01/07/24 23:10> IV Propofol dose (mg): 80 <Sherif Ricketts MD - Last Filed: 01/07/24 23:10> Patient Tolerated Procedure: well and no complications <Sherif Ricketts MD - Last Filed: 01/07/24 23:10> Complications: none <Sherif Ricketts MD - Last Filed: 01/07/24 23:10>
== END 2023-12-26 16:00 | disposition home or self-care (01) ==
PROVIDERS: Emergency Provider Emergency Medicine; PCP Internal Medicine
DX: I48.92 Unspecified atrial flutter (principal)
CPT/HCPCS: 92960; 93005; 94761; 99156; 99283; 99291; J2704

== ENCOUNTER 2024-06-03 13:55 | Outpatient (CLI) | payer MEDICARE, BC, SELFPAY ==
--- OUTSIDE RECORDS SUMMARY | 2024-06-03 13:57 | XMS_ITS | Clinical Summary ---
Author Organization [employer] [facility] Address [place], [place] [address] Care Team Providers Care Scout Name Role Phone Dorothy Price MD Primary Care Prov ider Allergies Active Allergy Reactions Criticality Noted Date Comments Iodinated Contrast Media Hives 04/02/2011 Not certain which type of dye - possible gadolinium reaction. Patient tolerated Isoview 300 IV bolus for 11/2017 CT scan without problem. Signed Electronically: Lee Middleton M.D. ??. . . 12:09 PM 12/16/2017 Erythromycin Rash 08/25/2007 Oxycodone Rash 06/16/2018 Medications Medication Sig Dispensed Refills Start Date End Date Status atorvastatin (LIPITOR) 20 mg tabletIndications: Coronary artery disease, unspecified vessel or lesion type, unspecified whether angina present, unspecified whether klamath or transplanted heart Take 1 Tablet (20 mg) by mouth at bedtime. 90 Tablet 3 05/21/2024 Active predniSONE (DELTASONE) 10 mg tabletIndications: Right hand weakness,Swelling of finger joint of right hand Take 4 Tablets (40 mg) by mouth once daily with a meal for 3 days, THEN 3 Tablets (30 mg) once daily with a meal for 3 days, THEN 2 Tablets (20 mg) once daily with a meal for 3 days, THEN 1 Tablet (10 mg) once daily with a meal for 3 days. 30 Tablet 05/31/2024 06/12/2024 Active meloxicam 15 mg tabletIndications: Swelling of finger joint of right hand,Right hand weakness,Arthralgi a, unspecified joint Take 1 Tablet (15 mg) by mouth once daily. 14 Tablet 06/01/2024 Active atorvastatin (LIPITOR) 20 mg tabletIndications: Coronary artery disease, unspecified vessel or lesion type, unspecified whether angina present, unspecified whether klamath or transplanted heart Take 1 Tablet (20 mg) by mouth at bedtime. 30 Tablet 3 02/06/2024 05/21/2024 Discontinued (Reorder (E-cancel not sent)) apixaban (ELIQUIS) 5 mg tabletIndications: atrial flutter Take 1 Tablet (5 mg) by mouth two times daily. needed for AFIB, start if episodes >12 hours and call us 05/03/2024 05/13/2024 Discontinued (Reorder (E-cancel not sent)) apixaban (ELIQUIS) 5 mg tabletIndications: atrial flutter Take 1 Tablet (5 mg) by mouth two times daily. needed for AFIB, start if episodes >12 hours and call us 60 Tablet 05/13/2024 05/21/2024 Discontinued (*Patient states no longer taking) Active Problems Problem Noted Date Diagnosed Date Subclinical hypothyroidism 01/13/2024 Palpitations 01/05/2024 PVC (premature ventricular contraction) 01/05/20 24 Elevated troponin 01/05/2024 Acute stress reaction 01/05/2024 PFO (patent foramen ovale) 12/11/2023 CHF (congestive heart failure) 12/10/2023 Pulmonary edema 12/10/2023 Atrial flutter with rapid ventricular response 0 12/10/2023 Morbid obesity 03/26/2018 Fatty liver 03/26/2018 Impaired fasting glucose 03/26/2018 Elevated rheumatoid factor 03/19/2018 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 03/18/2018 Neck pain 03/18/2018 Herniated lumbar intervertebral disc 12/19/2017 Overview (12/10/2023): Overview: Overview: L3-4 with L 3 radiculopathy, L4-5 radiculopathy Rectal bleeding 09/26/2009 Osteoarthritis of Knees 05/25/2009 Shoulder impingement syndrome 05/22/2009 Displacement of intervertebr al disc, site unspecified, without myelopathy Overview (04/13/2009): L3-4 with L 3 radiculopathy, L4-5 radiculopathy Resolved Problems Problem Noted Date Diagnosed Date Resolved Date custodial (current) use of anticoagulants 04/15/2011 05/03/2011 Encounters Date Type Department Care Team Description 05/31/2024 9:15 AM HOSPICE CONSULTANT [facility]illary [facility] [address] [place] [address] Arrived 05/31/2024 8:10 AM HOSPICE CONSULTANT [facility] [address] [place] [address] Dorothy Price MD Edema (swelling and painful in the right hand. Started 3 days ago) 05/31/2024 Travel 05/28/2024 Nurse Triage [facility] [address] [place] [address] Dorothy Price MD Numbness (Right hand); High Blood Pressure 05/27/2024 2:10 PM CDT Office Visit [facility] [address] [address] Noy Anderson MD Derm Problem 05/27/2024 Travel 05/21/2024 3:05 PM CDT [facility] [address] [place] [address] Dorothy Price MD Medication Management (Discuss Lipitor /Can she start taking Ibuprofen?) 05/21/2024 Travel 05/13/[address] [facility] [address] [place] [address] Vic Claros MD <No scans attached> 05/13/2024 Telephone [facility] [address] [place] [phone] Vic Claros MD Questions 05/03/2024 Telephone [facility] [address] [place] [address] Vic Claros MD Results (ZIO) 04/27/2024 11:20 AM CDT Office Visit [facility] [address] [facility] [address] [place] [address] Lilo Camacho NP CV Electrophysiology Est (Follow up post ablation ) 04/27/2024 Travel 04/22/2024 Travel 03/25/2024 Telephone [facility] [address] [place] [address] Dorothy Price MD Care Coordination 03/22/2024 Orders Only [facility] Scanner 1 scan: (1-Ord) [facility] 03/22/2024 Orders Only [facility] Scanner 1 scan: (1-Ord) [facility] 03/10/2024 9:30 AM CDT [facility] [address] [place] [address] Genie Milligan PA Follow Up (Kidney stones- /UTI- Was able to start antibiotics on 03/08 evening/) 03/10/2024 Travel 03/09/2024 Telephone [facility] [address] [place] [address] Vic Claros MD Medication Management 03/09/2024 Telephone [facility] [address] [place] [address] Vic Claros MD Error-please disregard 03/04/2024 6:26 PM CDT - 03/04/2024 6:44 PM CDT Emergency [facility] [address] [facility] [place] [address] Hematuria, unspecified type 03/04/2024 5:22 PM CDT - 03/04/2024 6:14 PM CDT Emergency [facility] [address] [place] [phone] Jeimy Lara MD Hematuria, unspecified type (Primary Dx) Discharge Disposition: Home Self Care 03/04/2024 Travel 03/04/2024 Telephone [facility] [address] [place] [address] Lilo Camacho NP Medication Management 03/04/2024 Nurse Triage [facility] [address] [place], [place] [id number] Dorothy Price MD Urinary Problem from Last 3 Months Immunizations Name Administration [...] Cigarettes Q uit: 07/28/1993 Smokeless Tobacco: Never Tobacco Cessation:Counseling Given: Not Answered Alcohol Use Standard Drinks/Week Comments No 0 (1 standard drink = 0.6 oz pur e alcohol) PHQ-2 Answer Date Recorded PHQ-2 TOTAL SCORE 0 05/21/2024 Social Connections Answer Date Recorded Do you often feel lonely or isolated from those around you? 0 01/06/2024 Financial Resource Strain Answer Date R ecorded Difficulty of Paying Living Expenses 3 12/10/2023 Difficulty of Paying Living Expenses Not on file 12/10/2023 Food Insecurity Answer Date Recorded Do you worry your food will run out before you are able to buy more? 1 01/06/2024 Transportation Needs Answer Date Record ed Does lack of transportation keep you from medica l appointments? 1 01/06/2024 Does lack of transportation keep you from work, meetings or getting things that you need? 1 01/06/2024 Housing Stability Answer Date Recorded What is your housing situation today? 1 01/06/2024 Sex and Gender Information Value Date Recorded Sex Assigned at Not on file Gender Identity Not on file Sexual Orientation Not on file Travel History Travel Start Travel End [place] 04/26/2024 05/09/2024 Obstetrics History Last Filed Vital Signs Vital Sign Reading Time Taken Comments Blood Pressure 145/89 05/31/2024 8:10 AM HOSPICE CONSULTANT Pulse 74 05/31/2024 8:10 AM HOSPICE CONSULTANT Temperature 36.6 ??C (97.9 ??F) 03/04/2024 5:31 PM CD T Respiratory Rate 18 03/04/2024 5:31 PM CDT Oxygen Saturation 95% 05/31/2024 8:10 AM HOSPICE CONSULTANT Inhaled Oxygen Concentration - - Weight 111.1 kg (245 lb) 04/27/2024 11:20 AM CDT Height 165.1 cm (5' 5) 04/27/2024 11:20 AM CDT Body Mass Index 40.77 04/27/2024 11:20 AM CDT Plan of Treatment Upcoming Encounters Date Type Department Care Team (Late st Contact Info) Description 06/29/2024 1:30 PM HOSPICE CONSULTANT Office Visit [facility] [address] [place] [address] [place] [address] [place] [address] [place] [address] 08/09/2024 1:25 PM HOSPICE CONSULTANT [facility] [address] [place] [address] Dorothy Price MD [address] [place] [address] 08/30/2024 8:00 AM HOSPICE CONSULTANT Nurse/Clinic [facility] [address] [address] 09/29/2024 2:00 PM HOSPICE CONSULTANT [facility] [address] [facility] [address] [facility] [place] [address] 09/29/2024 3:30 PM HOSPICE CONSULTANT [facility] [address] [facility] [address] [place] [address] Vic Claros MD [address] [place], [place] [phone] Health Maintenance Due Date Last Done Comments Pneumococcal series for age 65+ (1 of 2 - PCV) 1962 Zoster (shingles) series for age 50+ (1 of 2) 2006 Mammogram for age 45-75 02/22/2015 02/22/2014, 04/21 Colonoscopy through age 75 08/28/2015 08/28/2005 DEXA/DXA scan for age 65+ 2021 Medicare Wellness for age 65+ 2021 COVID-19 vaccine series ( season) 2024 08/21/2021, 11/03/2020, 10/06/2020 Influenza for age 65+ 03/28/2024 03/18/2018 Tetanus booster 10/13/2024 10/13/2014, 02/25, 03/07/2005, Additional history exists BMI (ht and wt on same day) for age 18+ 04/27/2025 04/27/2024, 01/13/2024 Depression screening for age 12+ 05/21/2025 05/21/20 24 Lipids for age 45-75 01/05/2029 01/06/2024, 12/10/2023, 05/10/2010 Tdap Completed 10/13/2014 Hepatitis C screening for ag e 18-79 Completed 01/08/2024 Procedures Procedure Name Priority Date/Time Associated Diagnosis Comments XR HAND 3 VIEWS RIGHT Routine 05/31/2024 9:26 AM HOSPICE CONSULTANT Right hand weakness EKG 12 LEAD Routine 04/27/2024 PVC (premature ventricular contraction) EXTENDED HOLTER Routine 04/27/2024 PVC (premature ventricular contraction) SCAN-EYE EXAM 03/22/2024 12:00 AM CDT SCAN-EYE EXAM 03/22/2024 12:[address] ABDOMEN PELVIS STONE PROTOCOL WO STAT 03/04/2024 6:46 PM CDT Hematuria, unspecified type ISTAT CHEM 8 Today 03/04/2024 6:00 PM CDT Hematuria, unspecified type CBC WITH AUTO DIFFERENTIAL STAT 03/04/2024 5:55 PM CDT Hematuria, unspecified type CBC WITH AUTO DIFFERENTIAL STAT 03/04/2024 5:55 PM CDT Hematuria, unspecified type URINE CULTURE KATHERINE 03/04/2024 5:27 PM CDT Hematuria, unspecified type URINALYSIS MICROSCOPIC STAT 03/04/2024 5:27 PM CDT Hematuria, unspecified type UA W/ SEDIMENT EXAM REFLEXED PER CRITERIA STAT 03/04/2024 5:27 PM CDT Hematuria, unspecified type ANTI HCV KATHERINE 01/08/2024 6:41 AM CDT LIPID PANEL Early AM 01/06/2024 7:41 AM CDT SCAN-MAMMOGRAPHY REPORT 02/22/2014 12:00 AM CDT from Last 3 Months or Most Recently Relevant to Health Maintenance Results * XR HAND 3 VIEWS RIGHT (05/31/2024 9:26 AM HOSPICE CONSULTANT) Anatomical Region Laterality Modality HANDS, HAND R Computed Radiogr aphy 05/31/2024 1:16 PM HOSPICE CONSULTANT Impressions 05/31/2024 1:16 PM HOSPICE CONSULTANT Scattered degenerative change. Mild skeletal demineralization. Dictated by Miguel Medina MD @ 05/31/2024 1:16:44 PM (Electronically Signed) Narrative 05/31/2024 1:16 PM HOSPICE CONSULTANT For Patients: ??As a result of the Century Cures Act, medical imaging exams and procedure reports are released immediately into your electronic medical record. ??You may view this report before your referring provider. ??If you have questions, please contact your health care provider. INDICATION: Right hand weakness. TECHNIQUE: Three views of the right hand. FINDINGS: There appears to be some degree of skeletal demineralization. Possible dorsal soft tissue swelling on the lateral view at the level of the metacarpals and wrist. Please correlate clinically. Advanced degenerative change right 1st CMC joint, triscaphe joint, and less so the 2nd carpometacarpal joint space. Narrowing of the MCP joints particularly the 2nd and 3rd MCP joints. There is no evidence for active erosion or dislocation. Incidental note is made of chondrocalcinosis within the triangular fibrocartilage distal to the ulna. Procedure Note Miguel Medina MD - 05/31/2024 For Patients: As a result of the Cures Act, medical imagingexams and procedure reports are released immediately into your electronicmedical record. You may view this report before your referring provider.If you have questions, please contact your health care provider. INDICATION: Right hand weakness. TECHNIQUE: Three views of the right hand. FINDINGS: There appears to be some degree of skeletal demineralization. Possible dorsal soft tissue swelling on the lateral view at the level ofthe metacarpals and wrist. Please correlate clinically. Advanced degenerative change right 1st CMC joint, triscaphe joint, andless so the 2nd carpometacarpal joint space. Narrowing of the MCP joints particularly the 2nd and 3rd MCP joints. There is no evidence for active erosion or dislocation. Incidental note is made of chondrocalcinosis within the triangularfibrocartilage distal to the ulna. IMPRESSION: Scattered degenerative change. Mild skeletal demineralization. Dictated by Miguel Medina MD @ 05/31/2024 1:16:44 PM (Electronically Signed) Dorothy Price MD GENERAL IM AGING * ZIO PATCH XT - weekly to monthly symptoms. (04/27/2024) 04/27/2024 Narrative Quique Templeton MD - 05/03/2024 10:46 AM CDT Frequent PVCsRecorded episode of VT appears more consistent with Bigeminy than true NSVT. Lilo Camacho [facility] ORD * EKG 12 LEAD (04/27/2024) Lilo Camacho [facility] OR[facility] * SCAN-EYE EXAM (03/22/2024 12:00 AM CDT) Scanner OTHER * SCAN-EYE EXAM (03/22/2024 12:00 AM CDT) Scanner OTHER * CT ABDOMEN PELVIS STONE PROTOCOL WO (03/04/2024 6:46 PM CDT) Anatomical Region Laterality Modality Abdomen, Pelvis, AORTA, LIVER, SPLEEN Computed Tomography 03/04/2024 7:12 PM CDT Impressions 03/04/2024 7:12 PM CDT 1. Punctate bilateral nonobstructing nephroliths. No evidence for obstructive uropathy. 2. No acute findings within the abdomen and pelvis. 3. Diverticulosis without evidence of diverticulitis. Please note that all CT scans at this facility use dose modulation, iterative reconstruction, and/or weight-based dosing when appropriate to reduce radiation dose to as low as reasonably achievable. Dictated by Sherif Clayton MD @ 03/04/2024 7:12:13 PM (Electronically Signed) Narrative 03/04/2024 7:12 PM CDT For Patients: ??As a result of the Century Cures Act, medical imaging exams and procedure reports are released immediately into your electronic medical record. ??You may view this report before your referring provider. ??If you have questions, please contact your health care provider. INDICATION: Hematuria TECHNIQUE: CT abdomen and pelvis without contrast. COMPARISON: CT abdomen and pelvis 10/14/2009. FINDINGS: Lower chest: Partially imaged right-sided 5 x 1.9 cm pericardial cyst Liver: Normal in size and attenuation. No suspicious masses. Gallbladder and bile ducts: Status post cholecystectomy. No abnormal biliary ductal dilatation. Pancreas: Unremarkable. No mass or inflammation. Spleen: Lobulated spleen with calcified granulomata. Adrenal glands: Normal in size. No nodules. Kidneys, Ureters, and Bladder: Right-sided parapelvic cyst, unchanged. No hydronephrosis. Punctate bilateral nonobstructing nephroliths. Focal scarring within the inferior pole of the left kidney. Limited evaluation of the distal ureters and urinary bladder due to streak artifact from the patient`s hip prostheses. GI tract: Diverticulosis without pericolonic inflammation. No obstruction. Normal appendix. Vasculature: Normal caliber abdominal aorta with mild atherosclerotic calcification. Lymph nodes: No lymphadenopathy. Peritoneum/Abdominal Wall: Unremarkable. No free air or significant free fluid. Pelvis: Limited due to streak artifact from the patient`s hip prostheses. Partially imaged uterus with small calcified fibroids. Bones: Unremarkable for age. Procedure Note Sherif Clayton MD - 03/04/2024 For Patients: As a result of the Cures Act, medical imagingexams and procedure reports are released immediately into your electronicmedical record. You may view this report before your referring provider.If you have questions, please contact your health care provider. INDICATION: Hematuria TECHNIQUE: CT abdomen and pelvis without contrast. COMPARISON: CT abdomen and pelvis 10/14/2009. FINDINGS: Lower chest: Partially imaged right-sided 5 x 1.9 cm pericardial cyst Liver: Normal in size and attenuation. No suspicious masses. Gallbladder and bile ducts: Status post cholecystectomy. No abnormalbiliary ductal dilatation. Pancreas: Unremarkable. No mass or inflammation. Spleen: Lobulated spleen with calcified granulomata. Adrenal glands: Normal in size. No nodules. Kidneys, Ureters, and Bladder: Right-sided parapelvic cyst, unchanged. Nohydronephrosis. Punctate bilateral nonobstructing nephroliths. Focalscarring within the inferior pole of the left kidney. Limited evaluationof the distal ureters and urinary bladder due to streak artifact from thepatient`s hip prostheses. GI tract: Diverticulosis without pericolonic inflammation. No obstruction.Normal appendix. Vasculature: Normal caliber abdominal aorta with mild atheroscleroticcalcification. Lymph nodes: No lymphadenopathy. Peritoneum/Abdominal Wall: Unremarkable. No free air or significant freefluid. Pelvis: Limited due to streak artifact from the patient`s hip prostheses.Partially imaged uterus with small calcified fibroids. Bones: Unremarkable for age. IMPRESSION: 1. Punctate bilateral nonobstructing nephroliths. No evidence forobstructive uropathy. 2. No acute findings within the abdomen and pelvis. 3. Diverticulosis without evidence of diverticulitis. Please note that all CT scans at this facility use dose modulation,iterative reconstruction, and/or weight-based dosing when appropriate toreduce radiation dose to as low as reasonably achievable. Dictated by Sherif Clayton MD @ 03/04/2024 7:12:13 PM (Electronically Signed) Jeimy Lara MD CT * (ABNORMAL) ISTAT CHEM 8 (03/04/2024 6:00 PM CDT) SODIUM, POCT 139 135 - 145 mmol/L 03/04/2024 6:02 PM CDT [facility] POTASSIUM, POCT 4.4 3.5 - 5.0 mmol/L 03/04/2024 6:02 PM CDT [facility] CHLORIDE, POCT 102 98 - 107 mmol/L 03/04/2024 6:02 PM CDT [facility] CO2,TOTAL, POCT 26 21 - 31 mmol/L 03/04/2024 6:02 PM CDT [facility] ANION GAP, POCT 17 5 - 18 6:02 PM CDT [facility] GLUCOSE, POCT 173(H) 70 - 99 mg/dL 03/04/2024 6:02 PM CDT [facility] IONIZED CALCIUM, POCT 1.16 1.15 - 1.27 mmol/L 03/04/2024 6:02 PM CDT [facility] BUN, POCT 24 8 - 25 mg/dL 03/04/2024 6:02 PM CDT [facility] CREATININE, POCT 1.00 0.57 - 1.11 mg/dL 03/04/2024 6:02 PM CDT [facility] Comment:Caution: Patients ta jeovanny Hydroxyurea have falsely increased iStat Creatinine results. Verify creatinine results ordering a Creatinine (02885.2) BUN/CREAT RATIO, POCT 24(H) 10 - 20 03/04/2024 6:02 PM CDT [facility] eGFR 62(L) >90 mL/min/1.7 3m2 03/04/2024 6:02 PM CDT [facility] Comment:As of 2021, eG FR is calculated by the CKD-EPI creatinine equation without race adjustment. eGFR can be influenced by muscle mass, exercise, and diet. The reported eGFR is an estimation only and is only applicable if the renal function is stable. Blood BLOOD SPECIMEN / Unknown 03/04/2024 6:00 PM CDT 03/04/2024 6:02 PM CDT Jeimy Lara MD CHEMISTRY [facility] [address] [place] [address], * CBC WITH AUTO DIFFERENTIAL (03/04/2024 5:55 PM CDT) WHITE BLOOD COUNT 9.7 4.5 - 11.0 thou/cu mm 03/04/2024 5:58 PM CDT [facility] RED BLOOD COUNT 4.65 4.00 - 5.20 mil/cu mm 03/04/2024 5:58 PM CDT [facility] HEMOGLOBIN 14.3 12.0 - 16.0 g/dL 03/04/2024 5:58 PM CDT [facility] HEMATOCRIT 43.3 33.0 - 51.0 % 03/04/2024 5:58 PM CDT [facility] MCV 93 80 - 100 fL 03/04/2024 5:58 PM CDT [facility] MCH 30.8 26.0 - 34.0 pg 03/04/2024 5:58 PM CDT [facility] MCHC 33.0 32.0 - 36.0 g/dL 03/04/2024 5:58 PM CDT [facility] RDW 13.1 11.5 - 15.5 % 03/04/2024 5:58 PM CDT [facility] PLATELET COUNT 225 140 - 440 thou/cu mm 03/04/2024 5:58 PM CDT [facility] MPV 10.3 6.5 - 11.0 fL 03/04/2024 5:58 PM CDT [facility] % NEUT 70.0 % 03/04/2024 5:58 PM CDT [facility] % LYMPH 23.8 % 03/04/2024 5:58 PM CDT [facility] % MONO 4.0 % 03/04/2024 5:58 PM CDT [facility] % EOS 2.0 % 03/04/2024 5:58 PM CDT [facility] % BASO 0.2 % 03/04/2024 5:58 PM CDT [facility] ABSOLUTE NEUTROPHILS 6.8 1.7 - 7.0 thou/cu mm 03/04/2024 5:58 PM CDT [facility] ABSOLUTE LYMPHOCYTES 2.3 0.9 - 2.9 thou/cu mm 03/04/2024 5:58 PM CDT [facility] ABSOLUTE MONOCYTES 0.4 <0.9 thou/cu mm 03/04/2024 5:58 PM CDT [facility] ABSOLUTE EOSINOPHILS 0.2 <0.5 thou/cu mm 03/04/2024 5:58 PM CDT [facility] ABSOLUTE BASOPHILS 0.0 <0.3 thou/cu mm 03/04/2024 5:58 PM CDT [facility] Blood BLOOD SPECIMEN / Unknown Venipuncture / Unknown 03/04/2024 5:55 PM CDT 03/04/2024 5:55 PM CDT Jeimy Lara MD HEMATOLOGY [facility] [address] [place] [address], [place] [phone] * (ABNORMAL) URINALYSIS MICROSCOPIC (03/04/2024 5:27 PM CDT) RBC >100(A) 0-2, None Seen /HPF 03/04/2024 5:34 PM CDT [facility] WBC 3-5 0-2, 3-5, None Seen /HPF 03/04/2024 5:34 PM CDT [facility] BACTERIA Moderate( A) None Seen, Rare, Few Bacteria/ HPF 03/04/2024 5:34 PM CDT [facility] EPITHELIAL CELLS Many(A) None Seen, Few Epi/HPF 03/04/2024 5:34 PM CDT [facility] Urine URINE SPECIMEN / Unknown Non-Blood / Unknown 03/04/2024 5:27 PM CDT 03/04/2024 5:27 PM CDT Jeimy Lara MD URINE [facility] [address] [place] [address], * (ABNORMAL) URINE CULTURE (03/04/2024 5:27 PM CDT) CULTURE RESULT(A) 03/07/2024 6:57 AM CDT [facility] CULTURE 10,000-50,000 CFU/mL Escherichia coli 03/07/2024 6:57 AM CDT [facility] Urine URINE SPECIMEN / Unknown Non-Blood / Unknown 03/04/2024 5:27 PM CDT 03/04/2024 5:27 PM CDT Narrative Organism Antibiotic Method Susceptibility Escherichia coli TRIMETHOPRIM/SULF <=1/19: S Escherichia coli AMPICILLIN <=2: S Escherichia coli CEFAZOLIN 2: S Escherichia coli CEFAZOLIN-UC 2: S Comment:Cefazolin-UC interpretations are for therapy of uncomplicated UTIs due to E.coli, K.pneumoniae, or P.mirablis. Cefazolin breakpoint is used as a surrogate to predict results for the oral agents - cefdinir, cefuroxime, and cephalexin, when used for therapy of uncomplicated UTIs due to E coli, K, pneumoniae, and P. mirabilis. The FDA recommends cefadroxil susceptibility can be deduced from cefazolin. Escherichia coli GENTAMICIN <=1: S Escherichia coli CEFTRIAXONE <=0.25: S Escherichia coli CEFTAZIDIME <=0.5: S Escherichia coli LEVOFLOXACIN <=0.12: S Escherichia coli CIPROFLOXACIN <=0.06: S Escherichia coli PIPERACILLIN/TAZO <=4: S Escherichia coli AMPICILLIN/SULBACTAM <=2: S Escherichia coli CEFEPIME <=0.12: S Escherichia coli MEROPENEM <=0.25: S Escherichia coli NITROFURANTOIN <=16: S Jeimy Lara MD MICROBIOLOGY [facility] [address] [place] [id number], * (ABNORMAL) URINALYSIS W REFLEX MICROSCOPIC IF POSITIVE (03/04/2024 5:27 PM CDT) COLOR Yellow Yellow Color 03/04/2024 5:34 PM CDT [facility] CLARITY Slightly Cloudy(A) Clear Clarity 03/04/2024 5:34 PM CDT [facility] SPECIFIC GRAVITY,URINE >=1.030(A) 1.010, 1.015, 1.020, 1.025 03/04/2024 5:34 PM CDT [facility] PH,URINE 5.5 6.0, 7.0, 8.0, 5.5, 6.5, 7.5, 8.5 03/04/2024 5:34 PM CDT [facility] UROBILINOGEN, QUALITATIVE Normal Normal EU/dl 03/04/2024 5:34 PM CDT [facility] PROTEIN, URINE 30(A) Negative mg/dL 03/04/2024 5:34 PM CDT [facility] GLUCOSE, URINE Negative Negative mg/dL 03/04/2024 5:34 PM CDT [facility] KETONES,URINE Negative Negative mg/dL 03/04/2024 5:34 PM CDT [facility] BILIRUBIN,URI NE Negative Negative 03/04/2024 5:34 PM CDT [facility] OCCULT BLOOD,URINE Moderate(A) Negative 03/04/2024 5:34 PM CDT [facility] NITRITE Negative Negative 03/04/2024 5:34 PM CDT [facility] LEUKOCYTE ESTERASE Negative Negative 03/04/2024 5:34 PM CDT [facility] Urine URINE SPECIMEN / Unknown Non-Blood / Unknown 03/04/2024 5:27 PM CDT 03/04/2024 5:27 PM CDT Jeimy Lara MD URINE Performing Organization Address City/[facility]/ZIP Co de Phone Number [facility] [address] [address] [place] [phone], * Anti-hepatitis C AM (01/08/2024 6:41 AM CDT) HEPATITIS C ANTIBODY Non-Reacti ve Non-React nu 01/09/2024 1:49 PM CDT [facility] Comment:Please note, per www .CDC.gov: If a patient is known to be at high risk of HCV infection, or is symptomatic, and the physician's suspicion of HCV infection is high, HCV RNA testing is often employed and is of diagnostic value, even after an initial negative anti-HCV test result. Blood BLOOD SPECIMEN / Unknown Venipuncture / Unknown 01/08/2024 6:41 AM CDT 01/08/2024 6:50 AM CDT Mainor Mao DO SEND OUTS Performing Organization Address City/[facility]/ZIP Co de Phone Number [facility] [address] [place] [phone], * (ABNORMAL) Lipid Panel AM (01/06/2024 7:41 AM CDT) CHOLESTEROL,TOTAL 170 100 - 199 mg/dL 01/06/2024 8:41 AM CDT [facility] Comment: Cholesterol, Total Reference Ranges Desirable <200 mg/dL Borderline 200-239 mg/dL High >=240 mg/dL TRIGLYCERIDES 155(H) <150 mg/dL 01/06/2024 8:41 AM CDT [facility] HDL CHOLESTEROL 30(L) >40 mg/dL 8:41 AM CDT [facility] NON-HDL CHOLESTEROL 140 <145 mg/dl 01/06/2024 8:41 AM CDT [facility] CHOL/HDL RATIO 5.67(H) <4.50 01/06/2024 8:41 AM CDT [facility] LDL CHOLESTEROL 109 <=130 mg/dL 01/06/2024 8:41 AM CDT [facility] VLDL CHOLESTEROL 31(H) <=30 mg/dL 01/06/2024 8:41 AM CDT [facility] PROVIDER ORDERED STATUS RANDOM 01/06/2024 8:41 AM CDT [facility] Blood BLOOD SPECIMEN / Unknown Venipuncture / Unknown 01/06/2024 7:41 AM CDT 01/06/2024 8:01 AM CDT Mainor Mao DO [facility] [address] [place] [address], * SCAN-MAMMOGRAPHY REPORT (02/22/2014 12:00 AM CDT) Anatomical Region Laterality Modality Other Narrative 02/23/2014 11:06 AM CDT Procedure Note Scanner - 02/22/2014 12:00 AM CDT Scanner OTHER from Last 3 Months or Most Recently Relevant to Health Maintenance Advance Directives * Full Code (Latest Code Status on File) Date Activated Date Inactivated Comments 01/16/2024 10:04 AM 01/16/2024 6:34 PM Question Answer Comments Code Status Discussion: Other * Full Code Date Activated Date Inactivated Comments 01/05/2024 8:49 PM 01/09/2024 7:48 PM Question Answer Comments Code Status Discussion: Reviewed Preferences * Full Code Date Activated Date Inactivated Comments 12/10/2023 12:49 PM 12/11/2023 7:16 PM Question Answer Comments Code Status Discussion: Reviewed Preferences Care Teams Scout Relationship Specialty Start Date End Date Dorothy Price [place] [address] [place] [address] PCP - General Family Practice 01/13/24
--- NOTE | 2024-06-03 14:00 | CRLHL7_ITS ---
For Patients: As a result of the Century Cures Act, medical imaging exams and procedure reports are released immediately into your electronic medical record. You may view this report before your referring provider. If you have questions, please contact your health care provider. BILATERAL SCREENING MAMMOGRAM WITH COMPUTER-AIDED DETECTION AND TOMOSYNTHESIS TECHNIQUE: CC and MLO views were obtained. These mammographic images have been obtained using full-field digital technique. These mammographic images were interpreted with the benefit of computer-aided detection. Breast tomosynthesis was used in this interpretation. COMPARISON FILM: 09/10/22, 06/26/21, 05/12/20. FINDINGS: There are scattered areas of fibroglandular density. IMPRESSION: There is no radiographic evidence for malignancy. ASSESSMENT: BI-RADS Category 1: Negative RECOMMENDATION: Routine screening mammogram in 1 year. A lay language report of this examination will be provided to the patient. RIKKI GARDNER M.D. Diagnostic Radiologist [email or web address] Transcribed: 06/10/2024, 4:[address]/Dictated by: Rikki Gardner MD @ 06/10/2024 10:13:00 AM (Electronically Signed)
== END 2024-06-03 13:56 | disposition home or self-care (01) ==
LOC: MAMMO 13:56
PROVIDERS: PCP Internal Medicine; Visit Provider Internal Medicine
DX: Z12.31 Encounter for screening mammogram for malignant neoplasm of breast (principal)
CPT/HCPCS: 77063; 77067

== ENCOUNTER 2024-06-28 06:34 | Outpatient (CLI) | payer MEDICARE, BC, SELFPAY ==
--- OUTSIDE RECORDS SUMMARY | 2024-06-28 06:36 | XMS_ITS | Encounter Summary ---
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 [address] [place] [address] Phone: tel: fax: [facility] [place] Referral ID Status Reason Start Date Expiration Date Visits Re quested Visits Authorized [id number] Closed 05/14/2024 05/14/2025 1 1 PERSON Reason for Visit * Outpatient (Routine) - Closed Specialty Diagnoses / Procedures Referred By Contac t Referred To Contact Diagnoses Atherosclerotic Heart Disease Of [place] Coronary Artery Without Angina Pectoris Beat Premature Ventricular Procedures DX Chest AP or PA and Lateral 2 Views Katie Coronel APRN, C.N.P., D.N.P. [address] [place] [address] Phone: tel: fax: [place] [facility] Referral ID Status Reason Start Date Expiration Date Visits Re quested Visits Authorized [id number] Closed 05/14/2024 05/14/2025 1 1 Encounter Details Date Type Department Care Team (Latest Contact Info) Description 06/21/2024 10:29 AM DOOR PERSON - 06/21/2024 2:03 PM DOOR PERSON Hospital Encounter Department of Radiology, [facility], in [place], [place] [address] [place] [address] Katie Coronel APRN, C.N.P., D.N.P. [address] [place] [address] Atherosclerotic Heart Disease Of [place] Coronary Artery Without Angina Pectoris; Beat Premature Ventricular Discharge Disposition: Home or Self Care Social History Tobacco Use Types Packs/Day Years Used Date Smoking Tobacco: Former Cigarettes 1 22.6 1 970 - 1991 Passive Smoke Exposure: Never Smokeless Tobacco: Never Alcohol Use Standard Drinks/Week Comments No 0 (1 standard drink = 0.6 oz pur e alcohol) PHQ-2 Answer Date Recorded PHQ-2 Score 0 01/02/2019 Nutrition Answer Date Recorded Nutrition: EVOO Fat Source Unknown 09/25 Nutrition: Servings of Fruits/Vegetables per Day Not on file 09/25/2020 Dental Answer Date Recorded Dental: Regular Dentist Unknown 05/11/20 24 Comments No Sex and Gender Information Value Date Recorded Sex Assigned at Not on file Legal Sex Female 7:05 AM DOOR PERSON Gender Identity Female 12/19/2017 9:47 AM CDT Sexual Orientation Straight 12/19/2017 9: 47 AM CDT Occupation Industry Job Start Date Job End Date Not on file Not on file Not on file Not on file documented as of this encounter Medications at Time of Discharge atorvastatin (Lipitor) 20 mg tablet Take 1 tablet by mouth at bedtime. 05/21/2024 cholecalciferol (VITAMIN D3) 2,000 Unit tablet Take 2,000 Units by mouth daily. ibuprofen (ADVIL,MOTRIN) 600 mg tablet Take 600 mg by mouth every 8 (eight) hours as needed. documented as of this encounter Plan of Treatment Upcoming Encounters Date Type Department Care Team (Latest Contact Info) Description 07/01/2024 1:15 PM DOOR PERSON Clinical Communication Virtual Review in [place], [place] [address] [place] [address] 07/06/2024 1:00 PM DOOR PERSON Comprehensive Visit Department of Cardiovascular Medicine in [place], [place] [address] [place] [phone] Daniel Tran M.D. 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 Mild atelectasis or scarring left base. Shallow inspiration on the lateral view. Calcified tortuous aorta. Hypertrophic and degenerative changes spine. Narrative 06/21/2024 10:41 AM DOOR PERSON EXAM: DX CHEST AP OR PA AND LATERAL 2 VIEWS Procedure Note Jeimy Flores M.D. - 06/21/2024 EXAM: DX CHEST AP OR PA AND LATERAL 2 VIEWS IMPRESSION: Cardiac silhouette at the upper limits of normal in size. Mild atelectasisor scarring left base. Shallow inspiration on the lateral view. Calcifiedtortuous aorta. Hypertrophic and degenerative changes spine. Katie Coronel APRN, C.N.P., D.N.P. IMG DIAGNO STIC IMAGING PROCEDURES Final Result documented in this encounter Visit Diagnoses Diagnosis Atherosclerotic Heart Disease Of [place] Coronary Artery Without Angina Pectoris Beat Premature Ventricular documented in this encounter Care Teams Inspector Handbag Frames Relationship Specialty Start Date End Date Elsewhere, Pcp PCP - General Internal Medicine 06/16/24 documented as of this encounter
--- OUTSIDE RECORDS SUMMARY | 2024-06-28 06:36 | XMS_ITS | Clinical Summary ---
Author Organization [facility] Address [address] [place] [address] Care Team Providers Care As400 Programmer Analyst Name Role Phone Elsewhere, Pcp Primary Care Provider Unavailabl e Source Comments Patient records contain information from all sites at [facility]. For routine questions regarding patient records, call [phone] during business hours, M-F 8:00 AM - 5:00 PM Central Time. Record requests for emergency care only can be directed to [phone] at any time.[facility] Allergies Active Allergy Reactions Criticality Noted Date Comments Erythromycin Rash Low 08/25/2012 Iodinated Contrast Media Hives (Reselect Reaction) 04/02/2011 Not certain which type of dye - possible gadolinium reaction. Patient tolerated Isoview 300 IV bolus for 11/2017 CT scan without problem. Signed Electronically: Lee Middleton M.D. . . . 12:09 PM 12/16/2017 Oxycodone Rash 06/16/2018 Medications cholecalciferol (VITAMIN D3) 2,000 Unit tablet Take 2,000 Units by mouth daily. Active ibuprofen (ADVIL,MOTRIN) 600 mg tablet Take 600 mg by mouth every 8 (eight) hours as needed. Active atorvastatin (Lipitor) 20 mg tablet Take 1 tablet by mouth at bedtime. 4 Active TRI-BUFFERED ASPIRIN 325 mg tablet Take 81 mg by mouth daily. 0 8 06/16/20 24 Discontinu ed(Therapy completed) cyclobenzaprine (FLEXERIL) 10 mg tablet Take 1 tablet (10 mg total) by mouth 3 (three) times a day as needed for muscle spasms. 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 Atherosclerotic Heart Disease Of [place] Coronary Artery Without Angina Pectoris; Beat Premature Ventricular Discharge Disposition: Home or Self Care 06/21/2024 2:04 PM COLLEGE ADMISSIONS COUNSELOR - 06/21/2024 3:11 PM COLLEGE ADMISSIONS COUNSELOR Hospital Encounter Department of Cardiovascular Diseases in [place], [place] [address] [place] [address] Katie Coronel APRN, C.N.P., D.N.P. Atherosclerotic Heart Disease Of [place] Coronary Artery Without Angina Pectoris; Beat Premature Ventricular Discharge Disposition: Home or Self Care 06/21/2024 10:29 AM COLLEGE ADMISSIONS COUNSELOR - 06/21/2024 2:03 PM COLLEGE ADMISSIONS COUNSELOR Hospital Encounter Department of Radiology, [facility], in [place], [place] [address] [place] [address] Katie Coronel APRN, C.N.P., D.N.P. Atherosclerotic Heart Disease Of [place] Coronary Artery Without Angina Pectoris; Beat Premature Ventricular Discharge Disposition: Home or Self Care 06/21/2024 10:01 AM COLLEGE ADMISSIONS COUNSELOR - 06/21/2024 10:28 AM COLLEGE ADMISSIONS COUNSELOR Hospital Encounter Department of Laboratory Medicine and Pathology, [facility], in [place], [place] [address] [place] [address] Katie Coronel APRN, C.N.P., D.N.P. Atherosclerotic Heart Disease Of [place] Coronary Artery Without Angina Pectoris; Beat Premature Ventricular Discharge Disposition: Home or Self Care 05/20/2024 Clinical Communication Department of Cardiovascular Medicine in [place], [place] [address] [place] [address] Cover MarkerVolodymyr M.D. Echo Move Up Request (CVD) 05/13/2024 Referral Triage Department of Cardiovascular Medicine in [place], [place] [address] [place] [address] Katie Coronel APRN, C.N.P., D.N.P. from Last 3 Months Immunizations Name Administration Dates Next Due Influenza, Seasonal, Injectable 03/18/2018(Defer red: Patient Refused) SARS-COV-2 (COVID-19) - MODERNA(Discontinued) 11/03/2020,10/06/2020 Td, (Adult) Unspecified 03/07/2005 Tdap 10/13/2014 Family History Medical History Relation Name Comments Multiple sclerosis Brother Colon cancer Father Osteoarthritis Father Diabetes mellitus type II Mother Fibroid uterus Mother Relation Name Status Comments Brother Father Mother Uncle kidney transpla nts Social History Tobacco Use Types Packs/Day Years Used Date Smoking Tobacco: Former Cigarettes 1 22.6 1 970 - 1992 Passive Smoke Exposure: Never Smokeless Tobacco: Never Tobacco Cessation:Counseling Given: Not [...] on file Legal Sex Female 7:05 AM COLLEGE ADMISSIONS COUNSELOR Gender Identity Female 12/19/2017 9:47 AM CDT Sexual Orientation Straight 12/19/2017 9: 47 AM CDT Occupation Industry Job Start Date Job End Date Not on file Not on file Not on file Not on file Last Filed Vital Signs Vital Sign Reading Time Taken Comments Blood Pressure 138/84 07/24/2018 1:31 PM COLLEGE ADMISSIONS COUNSELOR Pulse 72 07/24/2018 1:31 PM COLLEGE ADMISSIONS COUNSELOR Temperature 36.6 C (97.9 F) 07/24/2018 1:31 PM COLLEGE ADMISSIONS COUNSELOR Respiratory Rate 20 07/13/2018 1:05 AM COLLEGE ADMISSIONS COUNSELOR Oxygen Saturation 93% 07/13/2018 1:05 AM COLLEGE ADMISSIONS COUNSELOR Inhaled Oxygen Concentration - - Weight 109 kg (240 lb 4.8 oz) 07/24/2018 1:31 PM COLLEGE ADMISSIONS COUNSELOR Height 163.7 cm (5' 4.45) 06/16/2018 9:23 AM CS T Body Mass Index 40.67 06/16/2018 9:23 AM COLLEGE ADMISSIONS COUNSELOR Plan of Treatment Upcoming Encounters Date Type Department Care Team (Latest Contact Info) Description 07/01/2024 1:15 PM COLLEGE ADMISSIONS COUNSELOR Clinical Communication Virtual Review in [address] [address] 07/06/2024 1:00 PM COLLEGE ADMISSIONS COUNSELOR Comprehensive Visit Department of Cardiovascular Medicine in [address] [address] Daniel Tran M.D. [address] [place] [phone] Health Maintenance Due Date Last Done Comments Bone Density Scan (Osteoporosis Screen) 1956 CT Colonography 1955 Cologuard 1955 Colonoscopy 1955 Colorectal Cancer Surveillance 1955 Hepatitis C Screening 1955 Zoster Vaccines (1 of 2) 2006 RSV vaccine - (32-36 weeks) or 60+ years (1 - Risk 60-74 years 1-dose series) 2016 Mammogram 05/12/2021 05/12/2020 Pneumococcal vaccine (65+ years) (1 of 1 - PCV) 2021 Depression Screening (Annual PHQ-2) 07/28/2023 COVID-19 Vaccine ( season) 2024 08/21/2021, 11/03/2020, 10/06/2020 Influenza Vaccine (#1) 2024 03/18/2018 DTaP,Tdap,and Td Vaccines (2 - Td or Tdap) 10/13/2024 10/13/2014, 03/07/2005 Fasting Glucose for Diabetes Screening 06/21/2025 06/21/2024, 01/16/2024, 01/15/2024, Additional history exists Fall Risk Screen (Annual) Completed 06/21/2024 IPV Vaccines Aged Out No longer eligi ble based on patient's age to complete this topic Medical Devices Implanted Type Area Pullman Clerk Device Identifier Shelf Expiration Date Model / Serial / Lot Bilateral Hip Implant Hip Implant Bilatera l: Hip Knee Implant Knee Implant Knee Description:Left Knee Knee Implant-03/20/20 11 Implanted:03/20 (Quantity not on file) Knee Implant Knee Description:Right Knee repla cement Procedures Procedure Name Priority Date/Time Associated Diagnosis Comments (TTE) 2D ECHO DOPPLER COLOR Routine 06/21/2024 4:10 PM COLLEGE ADMISSIONS COUNSELOR Atherosclerotic Heart Disease Of [place] Coronary Artery Without Angina Pectoris Beat Premature Ventricular HOLTER MONITOR - IN CLINIC MANAGER HEALTH Routine 06/21/2024 2:30 PM COLLEGE ADMISSIONS COUNSELOR Atherosclerotic Heart Disease Of [place] Coronary Artery Without Angina Pectoris Beat Premature Ventricular ECG Routine 06/21/2024 11:32 AM COLLEGE ADMISSIONS COUNSELOR Atherosclerotic Heart Disease Of [place] Coronary Artery Without Angina Pectoris Beat Premature Ventricular DX CHEST AP OR PA AND LATERAL 2 VIEWS RAD - Routine (most inpatients and all outpatients) 06/21/2024 10:35 AM COLLEGE ADMISSIONS COUNSELOR Atherosclerotic Heart Disease Of [place] Coronary Artery Without Angina Pectoris Beat Premature Ventricular LIPID PANEL, S Routine 06/21/2024 10:23 AM COLLEGE ADMISSIONS COUNSELOR Atherosclerotic Heart Disease Of [place] Coronary Artery Without Angina Pectoris Beat Premature Ventricular GLUCOSE, FASTING, S/P Routine 06/21/2024 10:23 AM COLLEGE ADMISSIONS COUNSELOR Atherosclerotic Heart Disease Of [place] Coronary Artery Without Angina Pectoris Beat Premature Ventricular COMPREHENSIVE METABOLIC PANEL, S/P Routine 06/21/2024 10:23 AM COLLEGE ADMISSIONS COUNSELOR Atherosclerotic Heart Disease Of [place] Coronary Artery Without Angina Pectoris Beat Premature Ventricular CBC WITH DIFFERENTIAL, B Routine 06/21/2024 10:23 AM COLLEGE ADMISSIONS COUNSELOR Atherosclerotic Heart Disease Of [place] Coronary Artery Without Angina Pectoris Beat Premature Ventricular OUTSIDE MG MAMMOGRAM Routine 05/12/2020 11:30 AM CDT from Last 3 Months or Most Recently Relevant to Health Maintenance Results * (TTE) 2D ECHO DOPPLER COLOR (06/21/2024 4:10 PM COLLEGE ADMISSIONS COUNSELOR) Ejection Fraction 62 MC CV EIMS Proximal Ascending Aorta 35 MC CV EIMS LV Mass Index 76 MC CV EIMS LV End-Diastolic Diameter 49 MC CV EIMS LV End-Systolic Diameter 32 MC CV EIMS MV E Velocity 0.5 MC CV EIMS MV A Velocity 0.8 MC CV EIMS MV E/A 0.63 MC CV EIMS MV e' Velocity Medial 0.08 MC CV EIMS MV e' Velocity Lateral 0.09 MC CV EIMS MV E/e' Medial 6.3 MC CV EIMS MV E/e' Lateral 5.6 MC CV EIMS Left ventricular stroke volume index 41 MC CV EIMS Cardiac Output 6.66 MC CV EIMS Cardiac Index 3.1 MC CV EIMS LV Interventricular Septal Wall Thickness 9 MC CV EIMS LV Posterior Wall Thickness 10 MC CV EIMS LV Relative Wall Thickness 41 MC CV EIMS Tricuspid Annular S 0.1 MC CV EIMS AV mean gradient 5 MC CV EIMS Aortic valve area 3.41 MC CV EIMS Aortic Valve Dimensionless Index 0.98 MC CV EIMS LA Volume Index 20 MC CV EIMS Aortic Valve Systolic Peak Velocity 1.4 MC CV EIMS Anatomical Region Laterality Modality Echocardiography 06/21/2024 3:31 PM COLLEGE ADMISSIONS COUNSELOR Impressions 06/21/2024 4:14 PM COLLEGE ADMISSIONS COUNSELOR LEFT VENTRICLE:Normal left ventricular chamber size. Normal left ventricular wall thickness. Calculated 2-D linear left ventricular ejection fraction 62%. No regional wall motion abnormalities. Grade 1/3 left ventricular diastolic dysfunction, consistent with low to normal left ventricular filling pressure. RIGHT VENTRICLE:Normal right ventricular chamber size. Normal right ventricular systolic function. Unable to detect peak tricuspid regurgitation velocity for pulmonary artery systolic pressure calculation. ATRIA:Normal left atrial size. Left atrial volume index 20 ml/m2. Normal right atrial size. CARDIAC VALVES:Trileaflet aortic valve. Mildly thickened aortic valve. Trivial aortic valve regurgitation. Normal mitral valve. Trivial mitral valve regurgitation. Normal pulmonary valve. Normal pulmonary valve systolic velocities. No pulmonary valve regurgitation. Normal tricuspid valve. Trivial tricuspid valve regurgitation. OTHER ECHO FINDINGS:Normal inferior vena cava size with normal inspiratory collapse (>50%). Normal proximal ascending aorta diameter of 35 mm. The mid ascending aorta is not well visualized. Abdominal aorta incompletely visualized. No atrial level shunt by color flow imaging. No intracardiac mass or thrombus, but the left atrial appendage cannot be visualized adequately with transthoracic echo to exclude thrombus in this location. No pericardial effusion. For the complete report, see the Order-Level Documents. Narrative 06/21/2024 4:14 PM COLLEGE ADMISSIONS COUNSELOR For the complete report, see the Order-Level Documents. Hemodynamics Heart Rate: 74 BPM Blood Pressure: 161 / 98 mmHg ECG: Sinus rhythm with ectopics Final Impressions 1. Normal left ventricular chamber size, no regional wall motion abnormalities, calculated 2-D linear ejection fraction 62%. 2. Grade 1/3 left ventricular diastolic dysfunction, consistent with low to normal left ventricular filling pressure. 3. Normal right ventricular chamber size, normal systolic function, unable to detect peak tricuspid regurgitation velocity for pulmonary artery systolic pressure calculation. 4. Normal sized atria. 5. No significant valvular heart disease. 6. No pericardial effusion. 7. Normal inferior vena cava size with normal inspiratory collapse (>50%). Procedure Note Eamon Tripp M.B., Ch.B. - 06/21/2024 For the complete report, see the Order-Level Documents. Hemodynamics Heart Rate: 74 BPM Blood Pressure: 161 / 98 mmHg ECG: Sinus rhythm with ectopics Final Impressions 1. Normal left ventricular chamber size, no regional wall motionabnormalities, calculated 2-D linear ejection fraction 62%. 2. Grade 1/3 left ventricular diastolic dysfunction, consistent with lowto normal left ventricular filling pressure. 3. Normal right ventricular chamber size, normal systolic function, unableto detect peak tricuspid regurgitation velocity for pulmonary arterysystolic pressure calculation. 4. Normal sized atria. 5. No significant valvular heart disease. 6. No pericardial effusion. 7. Normal inferior vena cava size with normal inspiratory collapse(>50%). Findings LEFT VENTRICLE:Normal left ventricular chamber size. Normal leftventricular wall thickness. Calculated 2-D linear left ventricularejection fraction 62%. No regional wall motion abnormalities. Grade 1/3left ventricular diastolic dysfunction, consistent with low to normal leftventricular filling pressure. RIGHT VENTRICLE:Normal right ventricular chamber size. Normal rightventricular systolic function. Unable to detect peak tricuspidregurgitation velocity for pulmonary artery systolic pressurecalculation. ATRIA:Normal left atrial size. Left atrial volume index 20 ml/m2. Normalright atrial size. CARDIAC VALVES:Trileaflet aortic valve. Mildly thickened aortic valve.Trivial aortic valve regurgitation. Normal mitral valve. Trivial mitralvalve regurgitation. Normal pulmonary valve. Normal pulmonary valvesystolic velocities. No pulmonary valve regurgitation. Normal tricuspidvalve. Trivial tricuspid valve regurgitation. OTHER ECHO FINDINGS:Normal inferior vena cava size with normal inspiratorycollapse (>50%). Normal proximal ascending aorta diameter of 35 mm. Themid ascending aorta is not well visualized. Abdominal aorta incompletelyvisualized. No atrial level shunt by color flow imaging. No intracardiacmass or thrombus, but the left atrial appendage cannot be visualizedadequately with transthoracic echo to exclude thrombus in this location.No pericardial effusion. For the complete report, see the Order-Level Documents. us Katie Coronel APRN, C.N.P., D.N.P. CV ECHO MA OCEDURES Final Result * HOLTER MONITOR - IN CLINIC MANAGER HEALTH (06/21/2024 2:30 PM COLLEGE ADMISSIONS COUNSELOR) Min Heart Rate 57 bpm INFOB IONIC MOME Max Heart Rate 109 bpm INFOB IONIC MOME Mean Heart Rate 73 bpm INFOBIONIC MOME VE Total Beats 26129 count INFOB IONIC MOME VE Percent Beats 17 percent INFOBIONIC MOME SVE Total Beats 47 count INFOBIONIC MOME SVE Percent Beats less than 1 percent INFOBIONIC MOME AF Count 0 count INFOBIONIC MOME AF Duration 0 duration INFOBION IC MOME AF Branscomb 0 percent INFOBIONIC MOME Symptom Count 0 count RUBY LOMELI 06/21/2024 2:36 PM COLLEGE ADMISSIONS COUNSELOR Narrative CHIARA LOMELI - 06/25/2024 9:12 AM COLLEGE ADMISSIONS COUNSELOR 1. The basic rhythm was sinus. The total analyzed time was 18h 42m. The heart rate varied from 57 to 109 bpm. The average HR was 73 bpm. 2. Premature ventricular complexes were noted singly, fused, in pairs, in bigeminy, in trigeminy, and in ten 3-beat ventricular runs with a maximum rate of 102 bpm. There were 14,400 PVCs recorded with a PVC burden of 17%. 3. Premature supraventricular complexes were noted singly and in four 3-8 beat atrial runs with a maximum rate of 188 bpm. There were 47 PACs recorded with a PAC burden of less than 1%. 4. No symptomatic events were noted. Service Tech/Welder: DYLAN Simon/ DYLAN Santoyo Procedure Note Zak Betancourt M.D., M.P.H. - 06/25/2024 1. The basic rhythm was sinus. The total analyzed time was 18h 42m. Theheart rate varied from 57 to 109 bpm. The average HR was 73 bpm. 2. Premature ventricular complexes were noted singly, fused, in pairs, inbigeminy, in trigeminy, and in ten 3-beat ventricular runs with a maximumrate of 102 bpm. There were 14,400 PVCs recorded with a PVC burden of 17%. 3. Premature supraventricular complexes were noted singly and in four 3-8beat atrial runs with a maximum rate of 188 bpm. There were 47 PACsrecorded with a PAC burden of less than 1%. 4. No symptomatic events were noted. Service Tech/Welder: DYLAN Simon/ DYLAN Santoyo Katie Coronel APRN, C.N.P., D.N.P. CV CARDIAC SERVICES PROCEDURES Final Result CHIARA LOMELI NA * ECG 12 Lead (06/21/2024 11:32 AM COLLEGE ADMISSIONS COUNSELOR) Ventricular Rate ECG/Min 75 BPM MUSE MA Interval 164 ms MUSE QRSD Interval 106 ms MUSE QT Interval 400 ms MUSE QTC Interval 446 ms MUSE P Mertzon 12 degrees MUSE R Mertzon -36 degrees MUSE T Wave Mertzon 76 degrees MUSE 06/21/2024 11:3 2 AM COLLEGE ADMISSIONS COUNSELOR 06/21/2024 3:25 PM COLLEGE ADMISSIONS COUNSELOR Impressions MUSE - 06/21/2024 11:41 AM COLLEGE ADMISSIONS COUNSELOR Sinus rhythm Premature ventricular complexes Left axis deviation Moderate voltage criteria for LVH, may be normal variant ( R in aVL , Troy product ) Nonspecific T wave abnormality When compared with ECG of 24-Jul-2013 11:04, Significant changes have occurred Reviewed by DYLAN Lazcano Narrative Procedure Note Mina Barnhart M.D. - 06/21/2024 IMPRESSION: Sinus rhythm Premature ventricular complexes Left axis deviation Moderate voltage criteria for LVH, may be normal variant ( R in aVL ,Oracio product ) Nonspecific T wave abnormality When compared with ECG of 24-Jul-2013 11:04, Significant changes have occurred Reviewed by DYLAN Lazcano us Katie Coronel APRN, C.N.P., D.N.P. ECG ORDERA BLES Edited Result - Final MUSE NA * DX Chest AP or PA and Lateral 2 Views (06/21/2024 10:35 AM COLLEGE ADMISSIONS COUNSELOR) Anatomical Region Laterality Modality Chest, Thoracic RST LOS, Tho racic ARZ LOS, Thoracic FLA LOS N/A Digital Radiography Impressions 06/21/2024 10:41 AM COLLEGE ADMISSIONS COUNSELOR Cardiac silhouette at the upper limits of normal in size. Mild atelectasis or scarring left base. Shallow inspiration on the lateral view. Calcified tortuous aorta. Hypertrophic and degenerative changes spine. Narrative 06/21/2024 10:41 AM COLLEGE ADMISSIONS COUNSELOR EXAM: DX CHEST AP OR PA AND LATERAL 2 VIEWS Procedure Note Jeimy Flores M.D. - 06/21/2024 EXAM: DX CHEST AP OR PA AND LATERAL 2 VIEWS IMPRESSION: Cardiac silhouette at the upper limits of normal in size. Mild atelectasisor scarring left base. Shallow inspiration on the lateral view. Calcifiedtortuous aorta. Hypertrophic and degenerative changes spine. us Katie Coronel APRN, C.N.P., D.N.P. IMG DIAGNO STIC IMAGING PROCEDURES Final Result * (ABNORMAL) Lipid Panel (06/21/2024 10:23 AM COLLEGE ADMISSIONS COUNSELOR) Triglycerides 163(H) mg/dL 06/21/2024 11:25 AM COLLEGE ADMISSIONS COUNSELOR DTL Comment: ----REFERENCE VALUE---- Normal: <150 mg/dL Borderline High: 150-199 mg/dL High: 200-499 mg/dL Very High: > or =500 mg/dL Cholesterol, Total 129 mg/dL 2023 11:25 AM COLLEGE ADMISSIONS COUNSELOR DTL Comment: ----REFERENCE VALUE---- Desirable: < 200 mg/dL Borderline High: 200 - 239 mg/dL High: > or = 240 mg/dL Cholesterol, LDL, Calculated 69 mg/dL 06/21/2024 11:25 AM COLLEGE ADMISSIONS COUNSELOR DTL Comment: ----REFERENCE VALUE---- Desirable: <100 mg/dL Above Desirable: 100-129 mg/dL Borderline High: 130-159 mg/dL High: 160-189 mg/dL Very High: >=190 mg/dL ----ADDITIONAL INFORMATION---- LDL cholesterol calculated using the Pope/NIH equation. Cholesterol, HDL, S 32(L) >=50 mg/dL 06/21/2024 11:25 AM COLLEGE ADMISSIONS COUNSELOR DTL Cholesterol, Non-HDL, Calculated 97 mg/dL 06/21/2024 11:25 AM COLLEGE ADMISSIONS COUNSELOR DTL Comment: ----REFERENCE VALUE---- Desirable: <130 mg/dL Above Desirable: 130-159 mg/dL Borderline High: 160-189 mg/dL High: 190-219 mg/dL Very High: > or =220 mg/dL Fasting (8 HR or more) Yes 06/21/2024 10:23 AM COLLEGE ADMISSIONS COUNSELOR DTL Blood (Blood, Venous) 06/21/2024 10:23 AM COLLEGE ADMISSIONS COUNSELOR 06/21/2024 11:02 AM COLLEGE ADMISSIONS COUNSELOR Katie Coronel APRN, C.N.P., D.N.P. LAB BLOOD ADD-ON Final Result [facility] [address] [place] [address], [place] DTL [facility] [address] [place] [address] * (ABNORMAL) CBC with Differential, Blood (06/21/2024 10:23 AM COLLEGE ADMISSIONS COUNSELOR) Hemoglobin 14.7 11.6 - 15.0 g/dL 06/21/2024 11:44 AM COLLEGE ADMISSIONS COUNSELOR DTL Hematocrit 43.9 35.5 - 44.9 % 06/21/2024 11:44 AM COLLEGE ADMISSIONS COUNSELOR DTL Erythrocytes 4.87 3.92 - 5.13 x10(12)/L 06/21/2024 11:44 AM COLLEGE ADMISSIONS COUNSELOR DTL MCV 90.1 78.2 - 97.9 fL 06/21/2024 11:44 AM COLLEGE ADMISSIONS COUNSELOR DTL RBC Distrib Width 12.4 12.2 - 16.1 % 06/21/2024 11:44 AM COLLEGE ADMISSIONS COUNSELOR DTL Platelet Count 235 157 - 371 x10(9)/L 06/21/2024 11:44 AM COLLEGE ADMISSIONS COUNSELOR DTL Leukocytes 9.6 3.4 - 9.6 x10(9)/L 06/21/2024 11:44 AM COLLEGE ADMISSIONS COUNSELOR DTL Neutrophils 6.74(H) 1.56 - 6.45 x10(9)/L 06/21/2024 11:44 AM COLLEGE ADMISSIONS COUNSELOR DHPM Lymphocytes 2.17 0.95 - 3.07 x10(9)/L 06/21/2024 11:44 AM COLLEGE ADMISSIONS COUNSELOR DTL Monocytes 0.50 0.26 - 0.81 x10(9)/L 06/21/2024 11:44 AM COLLEGE ADMISSIONS COUNSELOR DTL Eosinophils 0.11 0.03 - 0.48 x10(9)/L 06/21/2024 11:44 AM COLLEGE ADMISSIONS COUNSELOR DTL Basophils 0.03 0.01 - 0.08 x10(9)/L 06/21/2024 11:44 AM COLLEGE ADMISSIONS COUNSELOR DTL Blood (Blood, Venous) 06/21/2024 10:23 AM COLLEGE ADMISSIONS COUNSELOR 06/21/2024 10:51 AM COLLEGE ADMISSIONS COUNSELOR Katie Coronel APRN, C.N.P., D.N.P. LAB BLOOD ADD-ON Final Result Performing Organization Address [facility] de Phone Number [facility] [address] DTL [facility] [address] [place] [address] * (ABNORMAL) Glucose, Fasting (06/21/2024 10:23 AM COLLEGE ADMISSIONS COUNSELOR) Glucose, P 118(H) 70 - 100 mg/dL 06/21/2024 11:27 AM COLLEGE ADMISSIONS COUNSELOR DTL Last Intake 13 hr 06/21/2024 11:06 AM COLLEGE ADMISSIONS COUNSELOR DTL Blood (Blood, Venous) 06/21/2024 10:23 AM COLLEGE ADMISSIONS COUNSELOR 06/21/2024 11:06 AM COLLEGE ADMISSIONS COUNSELOR Katie Coronel APRN, C.N.P., D.N.P. LAB BLOOD NON ADD-ON Final Result Performing Organization Address [facility] de Phone Number [facility] [address] [place], [place] [address] DTL [facility] [address] [place] [address] * (ABNORMAL) Comprehensive Metabolic Panel (06/21/2024 10:23 AM COLLEGE ADMISSIONS COUNSELOR) Potassium, S 4.6 3.6 - 5.2 mmol/L 06/21/2024 11:25 AM COLLEGE ADMISSIONS COUNSELOR DTL Sodium, S 139 135 - 145 mmol/L 06/21/2024 11:25 AM COLLEGE ADMISSIONS COUNSELOR DTL Chloride, S 106 98 - 107 mmol/L 06/21/2024 11:25 AM COLLEGE ADMISSIONS COUNSELOR DTL Bicarbonate, S 23 22 - 29 mmol/L 06/21/2024 11:25 AM COLLEGE ADMISSIONS COUNSELOR DTL Anion Gap 10 7 - 15 06/21/2024 11:25 AM COLLEGE ADMISSIONS COUNSELOR DTL BUN (Blood Urea Nitrogen), S 18 6 - 21 mg/dL 06/21/2024 11:25 AM COLLEGE ADMISSIONS COUNSELOR DTL Creatinine 0.92 0.59 - 1.04 mg/dL 06/21/2024 11:25 AM COLLEGE ADMISSIONS COUNSELOR DTL Estimated GFR (eGFR) 68 >=60 mL/min/BS A 06/21/2024 11:25 AM COLLEGE ADMISSIONS COUNSELOR DTL Comment: Estimated GFR calculated using the 2020 CKD_EPI creatinine equation. Calcium, Total, S 9.4 8.8 - 10.2 mg/dL 06/21/2024 11:25 AM COLLEGE ADMISSIONS COUNSELOR DTL Glucose, S CANCELED mg/dL 06/21/2024 11:06 AM COLLEGE ADMISSIONS COUNSELOR DTL Comment: Duplicate test request. Result canceled by the ancillary. Protein, Total, S 6.9 6.3 - 7.9 g/dL 06/21/2024 11:25 AM COLLEGE ADMISSIONS COUNSELOR DTL Albumin, S 4.1 3.5 - 5.0 g/dL 06/21/2024 11:25 AM COLLEGE ADMISSIONS COUNSELOR DTL Aspartate Aminotransferase (AST), S 18 8 - 43 U/L 06/21/2024 11:25 AM COLLEGE ADMISSIONS COUNSELOR DTL Alkaline Phosphatase, S 113(H) 35 - 104 U/L 06/21/2024 11:25 AM COLLEGE ADMISSIONS COUNSELOR DTL Alanine Aminotransferase (ALT), S 25 7 - 45 U/L 06/21/2024 11:25 AM COLLEGE ADMISSIONS COUNSELOR DTL Bilirubin, Total, S 0.7 0.0 - 1.2 mg/dL 06/21/2024 11:25 AM COLLEGE ADMISSIONS COUNSELOR DTL Blood (Blood, Venous) 06/21/2024 10:23 AM COLLEGE ADMISSIONS COUNSELOR 06/21/2024 11:02 AM COLLEGE ADMISSIONS COUNSELOR Katie Coronel APRN, C.N.P., D.N.P. LAB BLOOD ADD-ON Final Result [facility] [address] [place] [address], [place] DTL [facility] [address] [place] [address] * MAMMO SCREEN, BILAT, W/CAD-Outside Mammogram (05/12/2020 11:30 AM CDT) Narrative IIMS - 08/04/2020 10:29 PM COLLEGE ADMISSIONS COUNSELOR This order has been created and auto-finalized to support the import of outside images. If available, original interpretation can be found on the Media Tab in Chart Review, in Document Viewer, or as an image in QREADS. If a re-interpretation or overread is required please follow defined workflow. us Provider Not In System IMG BI PROCEDURES Final R esult IIMS NA from Last 3 Months or Most Recently Relevant to Health Maintenance Insurance MEDICARE [facility] [place] [address] Care Teams [id number] Programmer Analyst Relationship Specialty Start Date End Date Elsewhere, Pcp PCP - General Internal Medicine 06/16/24
--- OUTSIDE RECORDS SUMMARY | 2024-06-28 06:36 | XMS_ITS | Encounter Summary ---
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 [address] [place] [address] Phone: tel: fax: [facility] Referral ID Status Reason Start Date Expiration Date V isits Requested Visits Authorized [id number] Authorized 05/14/2024 05/14/2025 1 1 ICIDE SPRAYER Reason for Visit * Outpatient (Routine) - Authorized Specialty Diagnoses / Procedures Referred By Contac t Referred To Contact Diagnoses Atherosclerotic Heart Disease Of [place] Coronary Artery Without Angina Pectoris Beat Premature Ventricular Procedures ECG Heart rhythm monitor (Holter) Katie Coronel APRN, C.N.P., D.N.P. [address] [place] [address] Phone: tel: fax: [facility] Referral ID Status Reason Start Date Expiration Date V isits Requested Visits Authorized [id number] Authorized 05/14/2024 05/14/2025 1 1 Encounter Details Date Type Department Care Team (Latest Contact Info) Description 06/21/2024 2:04 PM HERBICIDE SPRAYER - 06/21/2024 3:11 PM HERBICIDE SPRAYER Hospital Encounter Department of Cardiovascular Diseases in [place], [place] [address] [place] [address] Katie Coronel APRN, C.N.P., D.N.P. [address] [place] [address] Atherosclerotic Heart Disease Of [place] Coronary Artery Without Angina Pectoris; Beat Premature Ventricular Discharge Disposition: Home or Self Care Social History Tobacco Use Types Packs/Day Years Used Date Smoking Tobacco: Former Cigarettes 1 22.6 1 0 - 1991 Passive Smoke Exposure: Never Smokeless [...] on file Legal Sex Female 7:05 AM HERBICIDE SPRAYER Gender Identity Female 12/19/2017 9:47 AM CDT [...] (Latest Contact Info) Description 07/01/2024 1:15 PM HERBICIDE SPRAYER Clinical Communication Virtual Review in [place], [place] [address] [place] [address] 07/06/2024 1:00 PM HERBICIDE SPRAYER Comprehensive Visit Department of Cardiovascular Medicine in [place], [place] [address] [place] [phone] Daniel Tran M.D. [address] [place] [phone] documented as of this encounter Procedures Procedure Name Priority Date/Time Associated Diagnosis Comments HOLTER MONITOR - IN CLINIC SALES CORRESPONDENT Routine 06/21/2024 2:30 PM HERBICIDE SPRAYER Atherosclerotic Heart Disease Of [place] Coronary Artery Without Angina Pectoris Beat Premature Ventricular documented in this encounter Results * HOLTER MONITOR - IN CLINIC SALES CORRESPONDENT (06/21/2024 2:30 PM HERBICIDE SPRAYER) Min Heart Rate 57 bpm INFOB IONIC MOME Max Heart Rate 109 bpm INFOB IONIC MOME Mean Heart Rate 73 bpm INFOBIONIC MOME VE Total Beats 60359 count INFOB IONIC MOME VE Percent Beats 17 percent INFOBIONIC MOME SVE Total Beats 47 count INFOBIONIC MOME SVE Percent Beats less than 1 percent INFOBIONIC MOME AF Count 0 count INFOBIONIC MOME AF Duration 0 duration INFOBION IC MOME AF [place] 0 percent INFOBIONIC MOME Symptom Count 0 count INFOBI ONIC MOME 06/21/2024 2:36 PM HERBICIDE SPRAYER Narrative INFOBIONIC MOME - 06/25/2024 9:12 AM HERBICIDE SPRAYER 1. The basic rhythm was sinus. The [...] 1%. 4. No symptomatic events were noted. Dredge Pipe Installer: DYLAN Simon/ DYLAN Santoyo Procedure Note Zak [...] 1%. 4. No symptomatic events were noted. Dredge Pipe Installer: DYLAN Simon/ DYLAN Santoyo Katie Coronel APRN, C.N.P., D.N.P. CV CARDIAC SERVICES PROCEDURES Final Result INFOBIONIC ARMANI NA documented in this encounter Visit Diagnoses Diagnosis Atherosclerotic Heart Disease Of [place] Coronary Artery Without Angina Pectoris Beat Premature Ventricular documented in this encounter Care Teams Hog Feeder Relationship Specialty Start Date End Date Elsewhere, Pcp PCP - General Internal Medicine 06/16/24 documented as of this encounter
--- OUTSIDE RECORDS SUMMARY | 2024-06-28 06:36 | XMS_ITS | Encounter Summary ---
Author Organization [facility] Address [address] [place] [address] Care Team Providers Care Cyber Defense Forensics Analyst Name Role Phone Elsewhere, Pcp Primary Care Provider Unavailabl e Encounter Details Date Type Department Care Team (Latest Contact Info) Description 06/21/2024 10:01 AM POWDER WORKER - 06/21/2024 10:28 AM [facility] Hospital Encounter Department of Laboratory Medicine and Pathology, [facility] in [place], [place] [address] [place] [address] Katie Coronel APRN, C.N.P., D.N.P. [address] [place] [phone] Atherosclerotic Heart Disease Of [place] Coronary Artery Without Angina Pectoris; Beat Premature [...] on file Legal Sex Female 7:05 AM POWDER WORKER Gender Identity Female 12/19/2017 9:47 AM CDT [...] (Latest Contact Info) Description 07/01/2024 1:15 PM POWDER WORKER Clinical Communication Virtual Review in [address] [phone] 07/06/2024 1:00 PM POWDER WORKER Comprehensive Visit Department of Cardiovascular Medicine in [address] [phone] Daniel Tran M.D. [address] [place] [phone] documented as of this encounter Procedures Procedure Name Priority Date/Time Associated Diagnosis Comments LIPID PANEL, S Routine 06/21/2024 10:23 AM POWDER WORKER Atherosclerotic Heart Disease Of [place] Coronary Artery Without Angina Pectoris Beat Premature Ventricular CBC WITH DIFFERENTIAL, B Routine 06/21/2024 10:23 AM POWDER WORKER Atherosclerotic Heart Disease Of [place] Coronary Artery Without Angina Pectoris Beat Premature Ventricular GLUCOSE, FASTING, S/P Routine 06/21/2024 10:23 AM POWDER WORKER Atherosclerotic Heart Disease Of [place] Coronary Artery Without Angina Pectoris Beat Premature Ventricular COMPREHENSIVE METABOLIC PANEL, S/P Routine 06/21/2024 10:23 AM POWDER WORKER Atherosclerotic Heart Disease Of [place] Coronary Artery Without Angina Pectoris Beat Premature Ventricular documented in this encounter Results * (ABNORMAL) Lipid Panel (06/21/2024 10:23 AM POWDER WORKER) Triglycerides 163(H) mg/dL 06/21/2024 11:25 AM POWDER WORKER DTL Comment: ----REFERENCE VALUE---- Normal: <150 mg/dL Borderline High: 150-199 mg/dL High: 200-499 mg/dL Very High: > or =500 mg/dL Cholesterol, Total 129 mg/dL 2023 11:25 AM POWDER WORKER DTL Comment: ----REFERENCE VALUE---- Desirable: < 200 mg/dL Borderline High: 200 - 239 mg/dL High: > or = 240 mg/dL Cholesterol, LDL, Calculated 69 mg/dL 06/21/2024 11:25 AM POWDER WORKER DTL Comment: ----REFERENCE VALUE---- Desirable: <100 mg/dL Above Desirable: 100-129 mg/dL Borderline High: 130-159 mg/dL High: 160-189 mg/dL Very High: >=190 mg/dL ----ADDITIONAL INFORMATION---- LDL cholesterol calculated using the Pope/NIH equation. Cholesterol, HDL, S 32(L) >=50 mg/dL 06/21/2024 11:25 AM POWDER WORKER DTL Cholesterol, Non-HDL, Calculated 97 mg/dL 06/21/2024 11:25 AM POWDER WORKER DTL Comment: ----REFERENCE VALUE---- Desirable: <130 mg/dL Above Desirable: 130-159 mg/dL Borderline High: 160-189 mg/dL High: 190-219 mg/dL Very High: > or =220 mg/dL Fasting (8 HR or more) Yes 06/21/2024 10:23 AM POWDER WORKER DTL Blood (Blood, Venous) 06/21/2024 10:23 AM POWDER WORKER 06/21/2024 11:02 AM POWDER WORKER Katie Coronel APRN, C.N.P., D.N.P. LAB BLOOD ADD-ON Final Result [facility] [address] [place] [address], [facility] [address] [place] [address] * (ABNORMAL) Glucose, Fasting (06/21/2024 10:23 AM POWDER WORKER) Glucose, P 118(H) 70 - 100 mg/dL 06/21/2024 11:27 AM POWDER WORKER DTL Last Intake 13 hr 06/21/2024 11:06 AM POWDER WORKER DTL Blood (Blood, Venous) 06/21/2024 10:23 AM POWDER WORKER 06/21/2024 11:06 AM POWDER WORKER Katie Coronel APRN, C.N.P., D.N.P. LAB BLOOD NON ADD-ON Final Result [facility] [address] [place] [address], [facility] [address] [place] [address] * (ABNORMAL) Comprehensive Metabolic Panel (06/21/2024 10:23 AM POWDER WORKER) Pathologist [facility] Potassium, S 4.6 3.6 - 5.2 mmol/L 06/21/2024 11:25 AM POWDER WORKER DTL Sodium, S 139 135 - 145 mmol/L 06/21/2024 11:25 AM POWDER WORKER DTL Chloride, S 106 98 - 107 mmol/L 06/21/2024 11:25 AM POWDER WORKER DTL Bicarbonate, S 23 22 - 29 mmol/L 06/21/2024 11:25 AM POWDER WORKER DTL Anion Gap 10 7 - 15 06/21/2024 11:25 AM POWDER WORKER DTL BUN (Blood Urea Nitrogen), S 18 6 - 21 mg/dL 06/21/2024 11:25 AM POWDER WORKER DTL Creatinine 0.92 0.59 - 1.04 mg/dL 06/21/2024 11:25 AM POWDER WORKER DTL Estimated GFR (eGFR) 68 >=60 mL/min/BS A 06/21/2024 11:25 AM POWDER WORKER DTL Comment: Estimated GFR calculated using the 2020 CKD_EPI creatinine equation. Calcium, Total, S 9.4 8.8 - 10.2 mg/dL 06/21/2024 11:25 AM POWDER WORKER DTL Glucose, S CANCELED mg/dL 06/21/2024 11:06 AM POWDER WORKER DTL Comment: Duplicate test request. Result canceled by the ancillary. Protein, Total, S 6.9 6.3 - 7.9 g/dL 06/21/2024 11:25 AM POWDER WORKER DTL Albumin, S 4.1 3.5 - 5.0 g/dL 06/21/2024 11:25 AM POWDER WORKER DTL Aspartate Aminotransferase (AST), S 18 8 - 43 U/L 06/21/2024 11:25 AM POWDER WORKER DTL Alkaline Phosphatase, S 113(H) 35 - 104 U/L 06/21/2024 11:25 AM POWDER WORKER DTL Alanine Aminotransferase (ALT), S 25 7 - 45 U/L 06/21/2024 11:25 AM POWDER WORKER DTL Bilirubin, Total, S 0.7 0.0 - 1.2 mg/dL 06/21/2024 11:25 AM POWDER WORKER DTL Blood (Blood, Venous) 06/21/2024 10:23 AM POWDER WORKER 06/21/2024 11:02 AM POWDER WORKER Katie Coronel APRN, C.N.P., D.N.P. LAB BLOOD ADD-ON Final Result [facility] [address] [place] [address], [facility] [address] [place] [address] * (ABNORMAL) CBC with Differential, Blood (06/21/2024 10:23 AM POWDER WORKER) Hemoglobin 14.7 11.6 - 15.0 g/dL 06/21/2024 11:44 AM POWDER WORKER DTL Hematocrit 43.9 35.5 - 44.9 % 06/21/2024 11:44 AM POWDER WORKER DTL Erythrocytes 4.87 3.92 - 5.13 x10(12)/L 06/21/2024 11:44 AM POWDER WORKER DTL MCV 90.1 78.2 - 97.9 fL 06/21/2024 11:44 AM POWDER WORKER DTL RBC Distrib Width 12.4 12.2 - 16.1 % 06/21/2024 11:44 AM POWDER WORKER DTL Platelet Count 235 157 - 371 x10(9)/L 06/21/2024 11:44 AM POWDER WORKER DTL Leukocytes 9.6 3.4 - 9.6 x10(9)/L 06/21/2024 11:44 AM POWDER WORKER DTL Neutrophils 6.74(H) 1.56 - 6.45 x10(9)/L 06/21/2024 11:44 AM POWDER WORKER DHPM Lymphocytes 2.17 0.95 - 3.07 x10(9)/L 06/21/2024 11:44 AM POWDER WORKER DTL Monocytes 0.50 0.26 - 0.81 x10(9)/L 06/21/2024 11:44 AM POWDER WORKER DTL Eosinophils 0.11 0.03 - 0.48 x10(9)/L 06/21/2024 11:44 AM POWDER WORKER DTL Basophils 0.03 0.01 - 0.08 x10(9)/L 06/21/2024 11:44 AM POWDER WORKER DTL Blood (Blood, Venous) 06/21/2024 10:23 AM POWDER WORKER 06/21/2024 10:51 AM POWDER WORKER Katie Coronel APRN, C.N.P., D.N.P. LAB BLOOD ADD-ON Final Result [facility] [address] [place] [address], [facility] DTL [facility] [address] [place] [address] DHPM [facility] [address] [place] [address] documented in this encounter Visit Diagnoses Diagnosis Atherosclerotic Heart Disease Of [place] Coronary Artery Without Angina Pectoris Beat Premature Ventricular documented in this encounter Care Teams Cyber Defense Forensics Analyst Relationship Specialty Start Date End Date Elsewhere, Pcp PCP - General Internal Medicine 06/16/24 documented as of this encounter
--- OUTSIDE RECORDS SUMMARY | 2024-06-28 06:36 | XMS_ITS | Encounter Summary ---
Author Organization [facility] Address [address] [place] [address] Care Team Providers Care Brick Or Block Maker Name Role Phone Elsewhere, Pcp Primary Care Provider Unavailabl e Reason for Referral * Cardiovascular-Diagnostic (Routine) - Closed Specialty Diagnoses / Procedures Referred By Sheri rae Referred To Contact Diagnoses Atherosclerotic Heart Disease Of [place] Coronary Artery Without Angina Pectoris Beat Premature Ventricular Procedures Echo Transthoracic (TTE) Katie Coronel APRN, C.N.P., D.N.P. [address] [place] [address] Phone: tel: fax: [facility] Referral ID Status Reason Start Date Expiration Date Visits Re quested Visits Authorized [id number] Closed 05/14/2024 05/14/2025 1 1 LATION THERAPY AIDE Reason for Visit * Cardiovascular-Diagnostic (Routine) - Closed Specialty Diagnoses / Procedures Referred By Sheri rae Referred To Contact Diagnoses Atherosclerotic Heart Disease Of [place] Coronary Artery Without Angina Pectoris Beat Premature Ventricular Procedures Echo Transthoracic (TTE) Katie Coronel APRN, C.N.P., D.N.P. [address] [place] [address] Phone: tel: fax: [facility] Referral ID Status Reason Start Date Expiration Date Visits Re quested Visits Authorized [id number] Closed 05/14/2024 05/14/2025 1 1 Encounter Details Date Type Department Care Team (Latest Contact Info) Description 06/21/2024 3:12 PM INHALATION THERAPY AIDE - 06/21/2024 11:59 PM INHALATION THERAPY AIDE Hospital Encounter Department of Cardiovascular Diseases in [place], [place] [address] [place] [address] Katie Coronel APRN, C.N.P., D.N.P. [address] [place] [address] Atherosclerotic Heart Disease Of [place] Coronary Artery Without Angina Pectoris; Beat Premature Ventricular Discharge Disposition: Home or Self Care Social History Tobacco Use Types Packs/Day Years Used Date Smoking Tobacco: Former Cigarettes 1 22.6 1 - 1991 Passive Smoke Exposure: Never Smokeless [...] on file Legal Sex Female 7:05 AM INHALATION THERAPY AIDE Gender Identity Female 12/19/2017 9:47 AM CDT [...] (Latest Contact Info) Description 07/01/2024 1:15 PM INHALATION THERAPY AIDE Clinical Communication Virtual Review in [place], [place] [address] [place] [address] 07/06/2024 1:00 PM INHALATION THERAPY AIDE Comprehensive Visit Department of Cardiovascular Medicine in [place], [place] [address] [place] [phone] Daniel Tran M.D. [address] [place] [phone] documented as of this encounter Procedures Procedure Name Priority Date/Time Associated Diagnosis Comments (TTE) 2D ECHO DOPPLER COLOR Routine 06/21/2024 4:10 PM INHALATION THERAPY AIDE Atherosclerotic Heart Disease Of [place] Coronary Artery Without Angina Pectoris Beat Premature Ventricular documented in this encounter Results * (TTE) 2D ECHO DOPPLER COLOR (06/21/2024 4:10 PM INHALATION THERAPY AIDE) Ejection Fraction 62 MC CV EIMS Proximal [...] Region Laterality Modality Echocardiography 06/21/2024 3:31 PM INHALATION THERAPY AIDE Impressions 06/21/2024 4:14 PM INHALATION THERAPY AIDE LEFT VENTRICLE:Normal left ventricular chamber size. Normal [...] the Order-Level Documents. Narrative 06/21/2024 4:14 PM INHALATION THERAPY AIDE For the complete report, see the Order-Level [...] the complete report, see the Order-Level Documents. Katie Coronel APRN, C.N.P., D.N.P. CV ECHO [place] OCEDURES Final Result documented in this encounter Visit Diagnoses Diagnosis Atherosclerotic Heart Disease Of [place] Coronary Artery Without Angina Pectoris Beat Premature Ventricular documented in this encounter Care Teams Brick Or Block Maker Relationship Specialty Start Date End Date Elsewhere, Pcp PCP - General Internal Medicine 06/16/24 documented as of this encounter
--- OUTSIDE RECORDS SUMMARY | 2024-06-28 06:36 | XMS_ITS | Referral Summary ---
Author Organization [facility] Address [address] [place] [address] Care Team Providers Care Grocery Store Clerk Name Role Phone Elsewhere, Pcp Primary Care Provider Unavailabl e Source Comments Patient records contain information from all sites at [facility]. For routine questions regarding patient records, call [phone] during business hours, M-F 8:00 AM - 5:00 PM Central Time. Record requests for emergency care only can be directed to [phone] at any time.[facility] Encounters Date Type Department Care Team Description 06/21/2024 3:12 PM INSPECTOR AND CLIPPER - 06/21/2024 11:59 PM INSPECTOR AND CLIPPER Hospital Encounter Department of Cardiovascular Diseases in [place], [place] [address] [place] [address] Katie Coronel APRN, C.N.P., D.N.P. Atherosclerotic 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; Beat Premature Ventricular Discharge Disposition: Home or Self Care 06/21/2024 10:29 AM INSPECTOR AND CLIPPER - 06/21/2024 2:03 PM INSPECTOR AND CLIPPER Hospital Encounter Department of Radiology, [facility], in [place], [place] [address] [place] [address] Katie Coronel APRN, C.N.P., D.N.P. Atherosclerotic 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; Beat Premature Ventricular Discharge Disposition: Home or Self Care 06/21/2024 10:01 AM INSPECTOR AND CLIPPER - 06/21/2024 10:28 AM INSPECTOR AND CLIPPER Hospital Encounter Department of Laboratory Medicine and Pathology, [facility], in [place], [place] [address] [place] [address] Katie Coronel APRN C.N.P., D.N.P. Atherosclerotic 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; Beat Premature Ventricular Discharge Disposition: Home or Self Care 06/21/2024 2:04 PM INSPECTOR AND CLIPPER - 06/21/2024 3:11 PM INSPECTOR AND CLIPPER Hospital Encounter Department of Cardiovascular Diseases in [place], [place] [address] [place] [address] Katie Coronel APRN, C.N.P., D.N.P. Atherosclerotic 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; Beat Premature Ventricular Discharge Disposition: Home or Self Care 05/20/2024 Clinical Communication Department of Cardiovascular Medicine in [place], [place] [address] [place] [address] Transplant Nurse, Ana M Helm Echo Move Up Request (CVD) 05/13/2024 Referral Triage Department of Cardiovascular Medicine in [place], [place] [address] [place] [address] Katie Coronel APRN, C.N.P., D.N.P. from Last 3 Months Allergies Active Allergy Reactions Criticality Noted Date [...] Diagnosed Date Resolved Date Neuropathy Peripheral 03/18/20182017 Immunizations Name Administration Dates Next Due Influenza, Seasonal, Injectable 03/18/2018(Defer red: Patient Refused) SARS-COV-2 (COVID-19) - MODERNA(Discontinued) 11/03/2020,10/06/2020 Td, (Adult) Unspecified 03/07/2005 Tdap 10/13/2014 Social History Tobacco Use Types Packs/Day Years [...] on file Legal Sex Female 7:05 AM INSPECTOR AND CLIPPER Gender Identity Female 12/19/2017 9:47 AM CDT Sexual Orientation Straight 12/19/2017 9: 47 AM CDT Occupation Industry Job Start Date Job End Date Not on file Not on file Not on file Not on file Last Filed Vital Signs Vital Sign Reading Time Taken Comments Blood Pressure 138/84 07/24/2018 1:31 PM INSPECTOR AND CLIPPER Pulse 72 07/24/2018 1:31 PM INSPECTOR AND CLIPPER Temperature 36.6 C (97.9 F) 07/24/2018 1:31 PM INSPECTOR AND CLIPPER Respiratory Rate 20 07/13/2018 1:05 AM INSPECTOR AND CLIPPER Oxygen Saturation 93% 07/13/2018 1:05 AM INSPECTOR AND CLIPPER Inhaled Oxygen Concentration - - Weight 109 kg (240 lb 4.8 oz) 07/24/2018 1:31 PM INSPECTOR AND CLIPPER Height 163.7 cm (5' 4.45) 06/16/2018 9:23 AM CS T Body Mass Index 40.67 06/16/2018 9:23 AM INSPECTOR AND CLIPPER Plan of Treatment Upcoming Encounters Date Type Department Care Team (Latest Contact Info) Description 07/01/2024 1:15 PM INSPECTOR AND CLIPPER Clinical Communication Virtual Review in [place], [place] [address] [place] [address] 07/06/2024 1:00 PM INSPECTOR AND CLIPPER Comprehensive Visit Department of Cardiovascular Medicine in [place], [place] [address] [place] [phone] Daniel Tran M.D. [address] [place] [phone] Medical Devices Implanted Type Area Dry Ice Machine Operator Device Identifier Shelf Expiration Date Model / Serial / Lot Bilateral Hip Implant Hip Implant Bilatera l: Hip Knee Implant Knee Implant Knee Description:Left Knee Knee Implant-03/20/20 11 Implanted:03/20 (Quantity not on file) Knee Implant Knee Description:Right Knee repla cement Procedures Procedure Name Priority Date/Time Associated Diagnosis Comments (TTE) 2D ECHO DOPPLER COLOR Routine 06/21/2024 4:10 PM INSPECTOR AND CLIPPER Atherosclerotic 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 Beat Premature Ventricular HOLTER MONITOR - IN CLINIC CROP GRAIN OR LIVESTOCK FARM MANAGER Routine 06/21/2024 2:30 PM INSPECTOR AND CLIPPER Atherosclerotic 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 Beat Premature Ventricular ECG Routine 06/21/2024 11:32 AM INSPECTOR AND CLIPPER Atherosclerotic 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 Beat Premature Ventricular DX CHEST AP OR PA AND LATERAL 2 VIEWS RAD - Routine (most inpatients and all outpatients) 06/21/2024 10:35 AM INSPECTOR AND CLIPPER Atherosclerotic 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 Beat Premature Ventricular LIPID PANEL, S Routine 06/21/2024 10:23 AM INSPECTOR AND CLIPPER Atherosclerotic 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 Beat Premature Ventricular GLUCOSE, FASTING, S/P Routine 06/21/2024 10:23 AM INSPECTOR AND CLIPPER Atherosclerotic 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 Beat Premature Ventricular COMPREHENSIVE METABOLIC PANEL, S/P Routine 06/21/2024 10:23 AM INSPECTOR AND CLIPPER Atherosclerotic 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 Beat Premature Ventricular CBC WITH DIFFERENTIAL, B Routine 06/21/2024 10:23 AM INSPECTOR AND CLIPPER Atherosclerotic 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 Beat Premature Ventricular OUTSIDE MG MAMMOGRAM Routine 05/12/2020 11:30 AM CDT from Last 3 Months or Most Recently Relevant to Health Maintenance Results * (TTE) 2D ECHO DOPPLER COLOR (06/21/2024 4:10 PM INSPECTOR AND CLIPPER) Ejection Fraction 62 MC CV EIMS Proximal [...] Region Laterality Modality Echocardiography 06/21/2024 3:31 PM INSPECTOR AND CLIPPER Impressions 06/21/2024 4:14 PM INSPECTOR AND CLIPPER LEFT VENTRICLE:Normal left ventricular chamber size. Normal [...] the Order-Level Documents. Narrative 06/21/2024 4:14 PM INSPECTOR AND CLIPPER For the complete report, see the Order-Level [...] collapse (>50%). Procedure Note Eamon Tripp M.B., .B. - 06/21/2024 For the complete report, see [...] Katie Coronel APRN, C.N.P., D.N.P. CV ECHO DC OCEDURES Final Result * HOLTER MONITOR - IN CLINIC CROP GRAIN OR LIVESTOCK FARM MANAGER (06/21/2024 2:30 PM INSPECTOR AND CLIPPER) Min Heart Rate 57 bpm INFOB IONIC MOME Max Heart Rate 109 bpm INFOB IONIC MOME Mean Heart Rate 73 bpm INFOBIONIC MOME VE Total Beats 25011 count INFOB IONIC MOME VE Percent Beats 17 percent INFOBIONIC MOME SVE Total Beats 47 count INFOBIONIC MOME SVE Percent Beats less than 1 percent INFOBIONIC MOME AF Count 0 count INFOBIONIC MOME AF Duration 0 duration INFOBION IC MOME AF [place] 0 percent INFOBIONIC MOME Symptom Count 0 count INFOBI ONIC MOME 06/21/2024 2:36 PM INSPECTOR AND CLIPPER Narrative INFOBIONIC MOME - 06/25/2024 9:12 AM INSPECTOR AND CLIPPER 1. The basic rhythm was sinus. The [...] 1%. 4. No symptomatic events were noted. Biological Sciences Instructor: DYLAN Simon/ DYLAN Santoyo Procedure Note Zak [...] 1%. 4. No symptomatic events were noted. Biological Sciences Instructor: DYLAN Simon/ DYLAN Santoyo Katie Coronel APRN, C.N.P., D.N.P. CV CARDIAC SERVICES PROCEDURES Final Result Performing Organization Address [facility] Co de Phone Number INFOBIONIC ARMANI NA * ECG 12 Lead (06/21/2024 11:32 AM INSPECTOR AND CLIPPER) Ventricular Rate ECG/Min 75 BPM MUSE DC Interval 164 ms MUSE QRSD Interval 106 ms MUSE QT Interval 400 ms MUSE QTC Interval 446 ms MUSE P Reagan 12 degrees MUSE R Reagan -36 degrees MUSE T Wave Reagan 76 degrees MUSE 06/21/2024 11:3 2 AM INSPECTOR AND CLIPPER 06/21/2024 3:25 PM INSPECTOR AND CLIPPER Impressions MUSE - 06/21/2024 11:41 AM INSPECTOR AND CLIPPER Sinus rhythm Premature ventricular complexes Left axis deviation Moderate voltage criteria for LVH, may be normal variant ( R in aVL , [place] product ) Nonspecific T wave abnormality When [...] changes have occurred Reviewed by DYLAN Lazcano Katie Coronel APRN, C.N.P., D.N.P. ECG ORDERA BLES Edited Result - Final Performing Organization Address [facility] Co de Phone Number MUSE NA * DX Chest AP or PA and Lateral 2 Views (06/21/2024 10:35 AM INSPECTOR AND CLIPPER) Anatomical Region Laterality Modality Chest, Thoracic RST LOS, Tho racic ARZ LOS, Thoracic FLA LOS N/A Digital Radiography Impressions 06/21/2024 10:41 AM INSPECTOR AND CLIPPER Cardiac silhouette at the upper limits of normal in size. Mild atelectasis or scarring left base. Shallow inspiration on the lateral view. Calcified tortuous aorta. Hypertrophic and degenerative changes spine. Narrative 06/21/2024 10:41 AM INSPECTOR AND CLIPPER EXAM: DX CHEST AP OR PA AND [...] * (ABNORMAL) Lipid Panel (06/21/2024 10:23 AM INSPECTOR AND CLIPPER) Triglycerides 163(H) mg/dL 06/21/2024 11:25 AM INSPECTOR AND CLIPPER DTL Comment: ----REFERENCE VALUE---- Normal: <150 mg/dL Borderline High: 150-199 mg/dL High: 200-499 mg/dL Very High: > or =500 mg/dL Cholesterol, Total 129 mg/dL 2023 11:25 AM INSPECTOR AND CLIPPER DTL Comment: ----REFERENCE VALUE---- Desirable: < 200 mg/dL Borderline High: 200 - 239 mg/dL High: > or = 240 mg/dL Cholesterol, LDL, Calculated 69 mg/dL 06/21/2024 11:25 AM INSPECTOR AND CLIPPER DTL Comment: ----REFERENCE VALUE---- Desirable: <100 mg/dL Above Desirable: 100-129 mg/dL Borderline High: 130-159 mg/dL High: 160-189 mg/dL Very High: >=190 mg/dL ----ADDITIONAL INFORMATION---- LDL cholesterol calculated using the Pope/NIH equation. Cholesterol, HDL, S 32(L) >=50 mg/dL 06/21/2024 11:25 AM INSPECTOR AND CLIPPER DTL Cholesterol, Non-HDL, Calculated 97 mg/dL 06/21/2024 11:25 AM INSPECTOR AND CLIPPER DTL Comment: ----REFERENCE VALUE---- Desirable: <130 mg/dL Above Desirable: 130-159 mg/dL Borderline High: 160-189 mg/dL High: 190-219 mg/dL Very High: > or =220 mg/dL Fasting (8 HR or more) Yes 06/21/2024 10:23 AM INSPECTOR AND CLIPPER DTL Blood (Blood, Venous) 06/21/2024 10:23 AM INSPECTOR AND CLIPPER 06/21/2024 11:02 AM INSPECTOR AND CLIPPER Katie Coronel APRN, C.N.P., D.N.P. LAB BLOOD ADD-ON Final Result [facility] [place] [address], [facility] [place] [address] * (ABNORMAL) CBC with Differential, Blood (06/21/2024 10:23 AM INSPECTOR AND CLIPPER) Hemoglobin 14.7 11.6 - 15.0 g/dL 06/21/2024 11:44 AM INSPECTOR AND CLIPPER DTL Hematocrit 43.9 35.5 - 44.9 % 06/21/2024 11:44 AM INSPECTOR AND CLIPPER DTL Erythrocytes 4.87 3.92 - 5.13 x10(12)/L 06/21/2024 11:44 AM INSPECTOR AND CLIPPER DTL MCV 90.1 78.2 - 97.9 fL 06/21/2024 11:44 AM INSPECTOR AND CLIPPER DTL RBC Distrib Width 12.4 12.2 - 16.1 % 06/21/2024 11:44 AM INSPECTOR AND CLIPPER DTL Platelet Count 235 157 - 371 x10(9)/L 06/21/2024 11:44 AM INSPECTOR AND CLIPPER DTL Leukocytes 9.6 3.4 - 9.6 x10(9)/L 06/21/2024 11:44 AM INSPECTOR AND CLIPPER DTL Neutrophils 6.74(H) 1.56 - 6.45 x10(9)/L 06/21/2024 11:44 AM INSPECTOR AND CLIPPER DHPM Lymphocytes 2.17 0.95 - 3.07 x10(9)/L 06/21/2024 11:44 AM INSPECTOR AND CLIPPER DTL Monocytes 0.50 0.26 - 0.81 x10(9)/L 06/21/2024 11:44 AM INSPECTOR AND CLIPPER DTL Eosinophils 0.11 0.03 - 0.48 x10(9)/L 06/21/2024 11:44 AM INSPECTOR AND CLIPPER DTL Basophils 0.03 0.01 - 0.08 x10(9)/L 06/21/2024 11:44 AM INSPECTOR AND CLIPPER DTL Blood (Blood, Venous) 06/21/2024 10:23 AM INSPECTOR AND CLIPPER 06/21/2024 10:51 AM INSPECTOR AND CLIPPER Katie Coronel APRN, C.N.P., D.N.P. LAB BLOOD ADD-ON Final Result Performing Organization Address City/[facility]/ZIP Co de Phone Number [facility] [address] [place] [address], [facility] DTL [facility] [place] [facility] [place] [address] [place] [address] * (ABNORMAL) Glucose, Fasting (06/21/2024 10:23 AM INSPECTOR AND CLIPPER) Glucose, P 118(H) 70 - 100 mg/dL 06/21/2024 11:27 AM INSPECTOR AND CLIPPER DTL Last Intake 13 hr 06/21/2024 11:06 AM INSPECTOR AND CLIPPER DTL Blood (Blood, Venous) 06/21/2024 10:23 AM INSPECTOR AND CLIPPER 06/21/2024 11:06 AM INSPECTOR AND CLIPPER Katie Coronel APRN, C.N.P., D.N.P. LAB BLOOD NON ADD-ON Final Result [facility] [address] [place] [address], [facility] DTL [facility] [place] [facility] [place] [address] [place] [address] * (ABNORMAL) Comprehensive Metabolic Panel (06/21/2024 10:23 AM INSPECTOR AND CLIPPER) Potassium, S 4.6 3.6 - 5.2 mmol/L 06/21/2024 11:25 AM INSPECTOR AND CLIPPER DTL Sodium, S 139 135 - 145 mmol/L 06/21/2024 11:25 AM INSPECTOR AND CLIPPER DTL Chloride, S 106 98 - 107 mmol/L 06/21/2024 11:25 AM INSPECTOR AND CLIPPER DTL Bicarbonate, S 23 22 - 29 mmol/L 06/21/2024 11:25 AM INSPECTOR AND CLIPPER DTL Anion Gap 10 7 - 15 06/21/2024 11:25 AM INSPECTOR AND CLIPPER DTL BUN (Blood Urea Nitrogen), S 18 6 - 21 mg/dL 06/21/2024 11:25 AM INSPECTOR AND CLIPPER DTL Creatinine 0.92 0.59 - 1.04 mg/dL 06/21/2024 11:25 AM INSPECTOR AND CLIPPER DTL Estimated GFR (eGFR) 68 >=60 mL/min/BS A 06/21/2024 11:25 AM INSPECTOR AND CLIPPER DTL Comment: Estimated GFR calculated using the 2020 CKD_EPI creatinine equation. Calcium, Total, S 9.4 8.8 - 10.2 mg/dL 06/21/2024 11:25 AM INSPECTOR AND CLIPPER DTL Glucose, S CANCELED mg/dL 06/21/2024 11:06 AM INSPECTOR AND CLIPPER DTL Comment: Duplicate test request. Result canceled by the ancillary. Protein, Total, S 6.9 6.3 - 7.9 g/dL 06/21/2024 11:25 AM INSPECTOR AND CLIPPER DTL Albumin, S 4.1 3.5 - 5.0 g/dL 06/21/2024 11:25 AM INSPECTOR AND CLIPPER DTL Aspartate Aminotransferase (AST), S 18 8 - 43 U/L 06/21/2024 11:25 AM INSPECTOR AND CLIPPER DTL Alkaline Phosphatase, S 113(H) 35 - 104 U/L 06/21/2024 11:25 AM INSPECTOR AND CLIPPER DTL Alanine Aminotransferase (ALT), S 25 7 - 45 U/L 06/21/2024 11:25 AM INSPECTOR AND CLIPPER DTL Bilirubin, Total, S 0.7 0.0 - 1.2 mg/dL 06/21/2024 11:25 AM INSPECTOR AND CLIPPER DTL Blood (Blood, Venous) 06/21/2024 10:23 AM INSPECTOR AND CLIPPER 06/21/2024 11:02 AM INSPECTOR AND CLIPPER Katie Coronel APRN, C.N.P., D.N.P. LAB BLOOD ADD-ON Final Result Performing Organization Address [facility] de Phone Number [facility] [address] [place] [address], [facility] DTL [facility] [place] [facility] [place] [address] [place] [address] * MAMMO SCREEN, BILAT, W/CAD-Outside Mammogram (05/12/2020 11:30 AM CDT) Narrative IIMS - 08/04/2020 10:29 PM INSPECTOR AND CLIPPER This order has been created and auto-finalized to support the import of outside images. If available, original interpretation can be found on the Media Tab in Chart Review, in Document Viewer, or as an image in QREADS. If a re-interpretation or overread is required please follow defined workflow. Provider Not In System IMG BI PROCEDURES Final R esult Performing Organization Address [facility] de Phone Number IIMS NA from Last 3 Months or Most Recently Relevant to Health Maintenance Insurance [facility] Care Teams Grocery Store Clerk Relationship Specialty Start Date End Date Elsewhere, Pcp PCP - General Internal Medicine 06/16/24
--- OUTSIDE RECORDS SUMMARY | 2024-06-28 06:36 | XMS_ITS ---
Author Organization [facility] Address [address] [place] [address] Care Team Providers Care Signal Operator Name Role Phone Unavailable Unavailable Unavailable Surgery Details Not on file Complications Check Surgery Details section. Procedure Estimated Blood Loss Check Surgery Details section. Procedure Findings Check Surgery Details section. Procedure Specimens Taken Check Surgery Details section.
--- OUTSIDE RECORDS SUMMARY | 2024-06-28 06:37 | XMS_ITS | Encounter Summary ---
Author Organization [facility] Address [address] [place] [address] Care Team Providers Care Steam Box Tender Name Role Phone Elsewhere, Pcp Primary Care Provider Unavailabl e Reason for Referral * Outpatient (Routine) - Closed Specialty Diagnoses / Procedures Referred By Sheri rae Referred To Contact Urology Diagnoses Hematuria Sherry Aguiar M.D. Phone: tel: fax: [facility] Referral ID Status Reason Start Date Expiration Date Visits Re quested Visits Authorized [id number] Closed 12/15/2017 06/13/2018 1 1 Encounter Details Date Type Department Care Team (Late st Contact Info) Description 12/15/2017 [facility] [address] [place] [address] Sherry Aguiar M.D. [address] [place] [address] Hematuria (Primary Dx) Social History Tobacco Use Types Packs/Day Years Used Date Smoking Tobacco: Former Comments Unknown Sex and Gender Information Value Date Recorded Sex Assigned at Not on file Legal Sex Female 7:05 AM PUBLIC SERVICE ADMINISTRATOR Gender Identity Female 12/19/2017 9:47 AM CDT Sexual Orientation Straight 12/19/2017 9: 47 AM CDT documented as of this encounter Plan of Treatment Upcoming Encounters Date Type Department Care Team (Latest Contact Info) Description 07/01/2024 1:15 PM PUBLIC SERVICE ADMINISTRATOR Clinical Communication Virtual Review in [place], [place] [address] [place] [address] 07/06/2024 1:00 PM PUBLIC SERVICE ADMINISTRATOR Comprehensive Visit Department of Cardiovascular Medicine in [place], [place] [address] [place] [phone] Daniel Tran M.D. [address] [place] [phone] Scheduled Referrals Name Type Priority Associated Diagnoses Orde r Schedule Urology Referral Outpatient Referral Routine Hematuria Expected: 12/15/2017 (Approximate), Expires: 12/15/2020 documented as of this encounter Visit Diagnoses Diagnosis Hematuria- Primary documented in this encounter Care Teams Steam Box Tender Relationship Specialty Start Date End Date Elsewhere, Pcp PCP - General Internal Medicine 06/16/24 documented as of this encounter
--- OUTSIDE RECORDS SUMMARY | 2024-06-28 06:37 | XMS_ITS | Encounter Summary ---
Author Organization [facility] Address [address] [place] [address] Care Team Providers Care Senior Agricultural Assistant Name Role Phone Unavailable Primary Care Provider Unavailabl e Reason for Referral * Cardiovascular-Diagnostic (Routine) - Closed Specialty Diagnoses / Procedures Referred By Sheri t Referred To Contact Diagnoses Atherosclerotic Heart Disease Of [place] Coronary Artery Without Angina Pectoris Beat Premature Ventricular Procedures Echo Transthoracic (TTE) Katie Coronel APRN, C.N.P., D.N.P. [address] [place] [address] Phone: tel: fax: [facility] Referral ID Status Reason Start Date Expiration Date Visits Re quested Visits Authorized [id number] Closed 05/14/2024 05/14/2025 1 1 * Outpatient (Routine) - Authorized Specialty Diagnoses / Procedures Referred By Contac t Referred To Contact Diagnoses Atherosclerotic Heart Disease Of [place] Coronary Artery Without Angina Pectoris Beat Premature Ventricular Procedures ECG Heart rhythm monitor (Holter) Katie Coronel APRN, C.N.P., D.N.P. [address] [place] [address] Phone: tel: fax: [facility] Referral ID Status Reason Start Date Expiration Date V isits Requested Visits Authorized [id number] Authorized 05/14/2024 05/14/2025 1 1 * Outpatient (Routine) - Closed Specialty Diagnoses / Procedures Referred By Contac t Referred To Contact Diagnoses Atherosclerotic Heart Disease Of [place] Coronary Artery Without Angina Pectoris Beat Premature Ventricular Procedures DX Chest AP or PA and Lateral 2 Views Katie Coronel APRN, Smith.N.PDaniel, D.N.P. [address] [place] [phone] Phone: tel: fax: [facility] Referral ID Status Reason Start Date Expiration Date Visits Re quested Visits Authorized [id number] Closed 05/14/2024 05/14/2025 1 1 * Outpatient (Routine) - Closed Specialty Diagnoses / Procedures Referred By Contac t Referred To Contact Diagnoses Atherosclerotic Heart Disease Of [place] Coronary Artery Without Angina Pectoris Beat Premature Ventricular Procedures ECG 12 Lead Katie Coronel APRN, C.N.PDaniel, D.N.P. [address] [place] [phone] Phone: tel: fax: [facility] Referral ID Status Reason Start Date Expiration Date Visits Re quested Visits Authorized [id number] Closed 05/14/2024 05/14/2025 1 1 Encounter Details Date Type Department Care Team (Late st Contact Info) Description 05/13/2024 Referral Triage Department of Cardiovascular Medicine in [place], [place] [address] [place] [phone] Katie Coronel APRN, C.N.PDaniel, D.N.P. [address] [place] [phone] Social History Tobacco Use Types Packs/Day Years Used Date Smoking Tobacco: Former Cigarettes 1 22.6 1 0 - 1991 Smokeless Tobacco: Never Alcohol Use Standard Drinks/Week Comments No 0 (1 standard drink = 0.6 oz pur e alcohol) PHQ-2 Answer Date Recorded PHQ-2 Score 0 01/02/2019 Nutrition Answer Date Recorded Nutrition: EVOO Fat Source Unknown 09/25 Nutrition: Servings of Fruits/Vegetables per Day Not on file 09/25/2020 Dental Answer Date Recorded Dental: Regular Dentist Unknown 05/11/20 Comments No Sex and Gender Information Value Date Recorded Sex Assigned at Not on file Legal Sex Female 7:05 AM RELIEF MASTER Gender Identity Female 12/19/2017 9:47 AM CDT Sexual Orientation Straight 12/19/2017 9: 47 AM CDT Occupation Industry Job Start Date Job End Date Not on file Not on file Not on file Not on file documented as of this encounter Plan of Treatment Upcoming Encounters Date Type Department Care Team (Latest Contact Info) Description 07/01/2024 1:15 PM RELIEF MASTER Clinical Communication Virtual Review in [place], [place] 200 [place] [address] 07/06/2024 1:00 PM RELIEF MASTER Comprehensive Visit Department of Cardiovascular Medicine in [address] [phone] Daniel Tran M.D. [address] [place] [phone] documented as of this encounter Results * (TTE) 2D ECHO DOPPLER COLOR (06/21/2024 4:10 PM RELIEF MASTER) Ejection Fraction 62 MC CV EIMS Proximal [...] Region Laterality Modality Echocardiography 06/21/2024 3:31 PM RELIEF MASTER Impressions 06/21/2024 4:14 PM RELIEF MASTER LEFT VENTRICLE:Normal left ventricular chamber size. Normal [...] the Order-Level Documents. Narrative 06/21/2024 4:14 PM RELIEF MASTER For the complete report, see the Order-Level [...] report, see the Order-Level Documents. us Katie Menendez Berna WARREN, C.N.P., D.N.P. CV ECHO MD OCEDURES Final Result * HOLTER MONITOR - IN CLINIC TRIBAL JUDGE (06/21/2024 2:30 PM RELIEF MASTER) Pathologist [facility] Min Heart Rate 57 bpm INFOB IONIC MOME Max Heart Rate 109 bpm INFOB IONIC MOME Mean Heart Rate 73 bpm INFOBIONIC MOME VE Total Beats 71095 count INFOB IONIC MOME VE Percent Beats 17 percent INFOBIONIC MOME SVE Total Beats 47 count INFOBIONIC MOME SVE Percent Beats less than 1 percent INFOBIONIC MOME AF Count 0 count INFOBIONIC MOME AF Duration 0 duration INFOBION IC MOME AF [place] 0 percent INFOBIONIC MOME Symptom Count 0 count INFOBI ONIC MOME 06/21/2024 2:36 PM RELIEF MASTER Narrative INFOBIONIC MOME - 06/25/2024 9:12 AM RELIEF MASTER 1. The basic rhythm was sinus. The [...] 1%. 4. No symptomatic events were noted. Investment Underwriter: DYLAN Simon/ DYLAN Santoyo Procedure Note Zak [...] 1%. 4. No symptomatic events were noted. Investment Underwriter: DYLAN Simon/ DYLAN Santoyo Katie Coronel APRN, C.N.P., D.N.P. CV CARDIAC SERVICES PROCEDURES Final Result INFOBIONIC ARMANI NA * ECG 12 Lead (06/21/2024 11:32 AM RELIEF MASTER) Ventricular Rate ECG/Min 75 BPM MUSE MD Interval 164 ms MUSE QRSD Interval 106 ms MUSE QT Interval 400 ms MUSE QTC Interval 446 ms MUSE P [place] 12 degrees MUSE R [place] -36 degrees MUSE T Wave [place] 76 degrees MUSE 06/21/2024 11:3 2 AM RELIEF MASTER 06/21/2024 3:25 PM RELIEF MASTER Impressions MUSE - 06/21/2024 11:41 AM RELIEF MASTER Sinus rhythm Premature ventricular complexes Left axis deviation Moderate voltage criteria for LVH, may be normal variant ( R in aVL , [place]more product ) Nonspecific T wave abnormality When compared with ECG of 24-Jul-2013 11:04, Significant changes have occurred Reviewed by DYLAN Lazcano Narrative Procedure Note Mina Barnhart M.D. - 06/21/2024 IMPRESSION: Sinus rhythm Premature ventricular complexes Left axis deviation Moderate voltage criteria for LVH, may be normal variant ( R in aVL ,[place]more product ) Nonspecific T wave abnormality When compared with ECG of 24-Jul-2013 11:04, Significant changes have occurred Reviewed by DYLAN Lazcano Katie Coronel APRN, C.N.P., D.N.P. ECG ORDERA BLES Edited Result - Final MUSE NA * DX Chest AP or PA and Lateral 2 Views (06/21/2024 10:35 AM RELIEF MASTER) Anatomical Region Laterality Modality Chest, Thoracic RST LOS, Tho racic ARZ LOS, Thoracic FLA LOS N/A Digital Radiography Impressions 06/21/2024 10:41 AM RELIEF MASTER Cardiac silhouette at the upper limits of normal in size. Mild atelectasis or scarring left base. Shallow inspiration on the lateral view. Calcified tortuous aorta. Hypertrophic and degenerative changes spine. Narrative 06/21/2024 10:41 AM RELIEF MASTER EXAM: DX CHEST AP OR PA AND LATERAL 2 VIEWS Procedure Note Jeiym Flores M.D. - 06/21/2024 EXAM: DX CHEST AP OR PA AND LATERAL 2 VIEWS IMPRESSION: Cardiac silhouette at the upper limits of normal in size. Mild atelectasisor scarring left base. Shallow inspiration on the lateral view. Calcifiedtortuous aorta. Hypertrophic and degenerative changes spine. Katie Coronel APRN, C.N.P., D.N.P. IMG DIAGNO STIC IMAGING PROCEDURES Final Result * (ABNORMAL) Lipid Panel (06/21/2024 10:23 AM RELIEF MASTER) Triglycerides 163(H) mg/dL 06/21/2024 11:25 AM RELIEF MASTER DTL Comment: ----REFERENCE VALUE---- Normal: <150 mg/dL Borderline High: 150-199 mg/dL High: 200-499 mg/dL Very High: > or =500 mg/dL Cholesterol, Total 129 mg/dL 2023 11:25 AM RELIEF MASTER DTL Comment: ----REFERENCE VALUE---- Desirable: < 200 mg/dL Borderline High: 200 - 239 mg/dL High: > or = 240 mg/dL Cholesterol, LDL, Calculated 69 mg/dL 06/21/2024 11:25 AM RELIEF MASTER DTL Comment: ----REFERENCE VALUE---- Desirable: <100 mg/dL Above Desirable: 100-129 mg/dL Borderline High: 130-159 mg/dL High: 160-189 mg/dL Very High: >=190 mg/dL ----ADDITIONAL INFORMATION---- LDL cholesterol calculated using the Pope/NIH equation. Cholesterol, HDL, S 32(L) >=50 mg/dL 06/21/2024 11:25 AM RELIEF MASTER DTL Cholesterol, Non-HDL, Calculated 97 mg/dL 06/21/2024 11:25 AM RELIEF MASTER DTL Comment: ----REFERENCE VALUE---- Desirable: <130 mg/dL Above Desirable: 130-159 mg/dL Borderline High: 160-189 mg/dL High: 190-219 mg/dL Very High: > or =220 mg/dL Fasting (8 HR or more) Yes 06/21/2024 10:23 AM RELIEF MASTER DTL Blood (Blood, Venous) 06/21/2024 10:23 AM RELIEF MASTER 06/21/2024 11:02 AM RELIEF MASTER Katie Coronel APRN, C.N.P., D.N.P. LAB BLOOD ADD-[place] [address], [place] [address] * (ABNORMAL) Glucose, Fasting (06/21/2024 10:23 AM RELIEF MASTER) Glucose, P 118(H) 70 - 100 mg/dL 06/21/2024 11:27 AM RELIEF MASTER DTL Last Intake 13 hr 06/21/2024 11:06 AM RELIEF MASTER DTL Blood (Blood, Venous) 06/21/2024 10:23 AM RELIEF MASTER 06/21/2024 11:06 AM RELIEF MASTER Katie Coronel APRN, C.N.PDaniel, D.N.P. LAB BLOOD NON ADD-ON Final Result [facility] [address] [place] [address], [facility] DTL [facility] [address] [place] [address] * (ABNORMAL) Comprehensive Metabolic Panel (06/21/2024 10:23 AM RELIEF MASTER) Potassium, S 4.6 3.6 - 5.2 mmol/L 06/21/2024 11:25 AM RELIEF MASTER DTL Sodium, S 139 135 - 145 mmol/L 06/21/2024 11:25 AM RELIEF MASTER DTL Chloride, S 106 98 - 107 mmol/L 06/21/2024 11:25 AM RELIEF MASTER DTL Bicarbonate, S 23 22 - 29 mmol/L 06/21/2024 11:25 AM RELIEF MASTER DTL Anion Gap 10 7 - 15 06/21/2024 11:25 AM RELIEF MASTER DTL BUN (Blood Urea Nitrogen), S 18 6 - 21 mg/dL 06/21/2024 11:25 AM RELIEF MASTER DTL Creatinine 0.92 0.59 - 1.04 mg/dL 06/21/2024 11:25 AM RELIEF MASTER DTL Estimated GFR (eGFR) 68 >=60 mL/min/BS A 06/21/2024 11:25 AM RELIEF MASTER DTL Comment: Estimated GFR calculated using the 2020 CKD_EPI creatinine equation. Calcium, Total, S 9.4 8.8 - 10.2 mg/dL 06/21/2024 11:25 AM RELIEF MASTER DTL Glucose, S CANCELED mg/dL 06/21/2024 11:06 AM RELIEF MASTER DTL Comment: Duplicate test request. Result canceled by the ancillary. Protein, Total, S 6.9 6.3 - 7.9 g/dL 06/21/2024 11:25 AM RELIEF MASTER DTL Albumin, S 4.1 3.5 - 5.0 g/dL 06/21/2024 11:25 AM RELIEF MASTER DTL Aspartate Aminotransferase (AST), S 18 8 - 43 U/L 06/21/2024 11:25 AM RELIEF MASTER DTL Alkaline Phosphatase, S 113(H) 35 - 104 U/L 06/21/2024 11:25 AM RELIEF MASTER DTL Alanine Aminotransferase (ALT), S 25 7 - 45 U/L 06/21/2024 11:25 AM RELIEF MASTER DTL Bilirubin, Total, S 0.7 0.0 - 1.2 mg/dL 06/21/2024 11:25 AM RELIEF MASTER DTL Blood (Blood, Venous) 06/21/2024 10:23 AM RELIEF MASTER 06/21/2024 11:02 AM RELIEF MASTER Katie Coronel APRN, C.N.P., D.N.P. LAB BLOOD ADD-ON Final Result [facility] [address] [place] [address], [facility] [address] [place] [address] * (ABNORMAL) CBC with Differential, Blood (06/21/2024 10:23 AM RELIEF MASTER) Hemoglobin 14.7 11.6 - 15.0 g/dL 06/21/2024 11:44 AM RELIEF MASTER DTL Hematocrit 43.9 35.5 - 44.9 % 06/21/2024 11:44 AM RELIEF MASTER DTL Erythrocytes 4.87 3.92 - 5.13 x10(12)/L 06/21/2024 11:44 AM RELIEF MASTER DTL MCV 90.1 78.2 - 97.9 fL 06/21/2024 11:44 AM RELIEF MASTER DTL RBC Distrib Width 12.4 12.2 - 16.1 % 06/21/2024 11:44 AM RELIEF MASTER DTL Platelet Count 235 157 - 371 x10(9)/L 06/21/2024 11:44 AM RELIEF MASTER DTL Leukocytes 9.6 3.4 - 9.6 x10(9)/L 06/21/2024 11:44 AM RELIEF MASTER DTL Neutrophils 6.74(H) 1.56 - 6.45 x10(9)/L 06/21/2024 11:44 AM RELIEF MASTER DHPM Lymphocytes 2.17 0.95 - 3.07 x10(9)/L 06/21/2024 11:44 AM RELIEF MASTER DTL Monocytes 0.50 0.26 - 0.81 x10(9)/L 06/21/2024 11:44 AM RELIEF MASTER DTL Eosinophils 0.11 0.03 - 0.48 x10(9)/L 06/21/2024 11:44 AM RELIEF MASTER DTL Basophils 0.03 0.01 - 0.08 x10(9)/L 06/21/2024 11:44 AM RELIEF MASTER DTL Blood (Blood, Venous) 06/21/2024 10:23 AM RELIEF MASTER 06/21/2024 10:51 AM RELIEF MASTER Katie Coronel APRN, C.N.P., D.N.P. LAB BLOOD ADD-ON Final Result [facility] [address] [place] [address], [facility] DTL [facility] [address] [place] [address] DHPM [facility] [address] [place] [address] documented in this encounter Visit Diagnoses Diagnosis Atherosclerotic Heart Disease Of [place] Coronary Artery Without Angina Pectoris- Primary Beat Premature Ventricular Atherosclerotic Heart Disease Of [place] Coronary Artery Without Angina Pectoris Beat Premature Ventricular Atherosclerotic Heart Disease Of [place] Coronary Artery Without Angina Pectoris Beat Premature Ventricular Atherosclerotic Heart Disease Of [place] Coronary Artery Without Angina Pectoris Beat Premature Ventricular documented in this encounter
--- OUTSIDE RECORDS SUMMARY | 2024-06-28 06:37 | XMS_ITS | Clinical Summary ---
Author Organization [facility] Address [place], [place] [address] Care Team Providers Care Wood Heel Fitter Machine Name Role Phone Dorothy Price MD Primary Care Prov ider Allergies Active Allergy Reactions Criticality Noted Date Comments Iodinated Contrast Media Hives 04/02/2011 Not certain which type of dye - possible gadolinium reaction. Patient tolerated Isoview 300 IV bolus for 11/2017 CT scan without problem. Signed Electronically: Lee [place] M.D. . . . 12:09 PM 12/16/2017 Erythromycin Rash 08/25/2007 Oxycodone Rash 06/16/2018 Medications Medication Sig Dispensed Refills Start Date End Date Status atorvastatin (LIPITOR) 20 mg tabletIndications:Co ronary artery disease, unspecified vessel or lesion type, unspecified whether angina present, unspecified whether [place] or transplanted heart Take 1 Tablet (20 mg) by mouth at bedtime. 90 Tablet 3 05/21/2024 Active meloxicam 15 mg tabletIndications:Sw elling of finger joint of right hand,Right hand weakness,Arthralgia, unspecified joint Take 1 Tablet (15 mg) by mouth once daily. 14 Tablet 06/01/2024 Active predniSONE (DELTASONE) 10 mg tabletIndications:Ri ght hand weakness,Swelling of finger joint of right [...] 3 days. 30 Tablet 05/31/2024 06/12/2024 Active Problems Problem Noted Date Diagnosed Date [...] Problem Noted Date Diagnosed Date Resolved Date label operator (current) use of anticoagulants 04/15/2011 05/03/2011 Encounters Date Type Department Care Team Description 05/31/2024 9:15 AM DOMESTIC CLEANER Ancillary Procedure [facility] [address] [place] [address] 05/31/2024 8:10 AM DOMESTIC CLEANER Office Visit [facility] [address] [place] [address] Dorothy Price MD Edema (swelling and painful in the right hand. Started 3 days ago) 05/31/2024 Travel 05/28/2024 Nurse Triage [facility] [address] [place] [address] Dorothy Price MD Numbness (Right hand); High Blood Pressure 05/27/2024 2:10 PM CDT Office Visit [facility] [address] [place] [address] Noy Anderson MD Derm Problem 05/27/2024 Travel 05/21/2024 3:05 PM CDT Office Visit [facility] [address] [place] [address] Dorothy Price MD Medication Management (Discuss Lipitor /Can she start taking Ibuprofen?) 05/21/2024 Travel 05/13/2024 Orders Only [facility] [address] [facility] [address] [place] [address] Vic Claros MD <No scans attached> 05/13/2024 [place] [facility] [place] [address] [facility] [address] [place] [phone] Vic Claros MD Questions 05/03/2024 Telephone [facility] [address] [place] [phone] Vic Claros MD Results (ZIO) 04/27/2024 11:20 AM CDT Office Visit [facility] [address] [facility] [address] [place] [address] Lilo Camacho NP CV Electrophysiology Est (Follow up post ablation ) 04/27/2024 Travel 04/22/2024 Travel from Last 3 Months Immunizations Name Administration Dates Next Due COVID-19 vaccine (Moderna 100mcg/0.5mL) PFMDV 10/06/2020 Influenza Virus, Unspecified 03/18/2018(Deferred : Patient [...] Comments Blood Pressure 145/89 05/31/2024 8:10 AM DOMESTIC CLEANER Pulse 74 05/31/2024 8:10 AM DOMESTIC CLEANER Temperature 36.6 C (97.9 F) 03/04/2024 5:31 PM CDT Respiratory Rate 18 03/04/2024 5:31 PM CDT Oxygen Saturation 95% 05/31/2024 8:10 AM DOMESTIC CLEANER Inhaled Oxygen Concentration - - Weight 111.1 kg (245 lb) 04/27/2024 11:20 AM CDT Height 165.1 cm (5' 5) 04/27/2024 11:20 AM CDT Body Mass Index 40.77 04/27/2024 11:20 AM CDT Plan of Treatment Upcoming Encounters Date Type Department Care Team (Late st Contact Info) Description 06/29/2024 1:30 PM DOMESTIC CLEANER Office Visit [facility] [id number] [place] [address] [place] [address] [place] [address] [place] [address] 08/09/2024 1:25 PM DOMESTIC CLEANER Office Visit [facility] [address] [place] [address] Dorothy Price MD [address] [place] [address] 08/30/2024 8:00 AM DOMESTIC CLEANER Nurse/Clinic Staff Only [facility] [address] [address] 09/29/2024 2:00 PM DOMESTIC CLEANER Orders Only [facility] [address] [address] 09/29/2024 3:30 PM DOMESTIC CLEANER Office Visit [facility] [address] [phone] Vic Claros MD [address] [place] [address] Health Maintenance Due Date Last Done Comments [...] 3 VIEWS RIGHT Routine 05/31/2024 9:26 AM DOMESTIC CLEANER Right hand weakness EKG 12 LEAD Routine 04/27/2024 PVC (premature ventricular contraction) EXTENDED HOLTER Routine 04/27/2024 PVC (premature ventricular contraction) ANTI HCV KATHERINE 01/08/2024 6:41 AM CDT LIPID PANEL Early AM 01/06/2024 7:41 AM CDT SCAN-MAMMOGRAPHY REPORT 02/22/2014 12:00 AM CDT from Last 3 Months or Most Recently Relevant to Health Maintenance Results * XR HAND 3 VIEWS RIGHT (05/31/2024 9:26 AM DOMESTIC CLEANER) Anatomical Region Laterality Modality HANDS, HAND R Computed Radiogr aphy 05/31/2024 1:16 PM DOMESTIC CLEANER Impressions 05/31/2024 1:16 PM DOMESTIC CLEANER Scattered degenerative change. Mild skeletal demineralization. Dictated by Miguel Medina MD @ 05/31/2024 1:16:44 PM (Electronically Signed) Narrative 05/31/2024 1:16 PM DOMESTIC CLEANER For Patients: As a result of the 21st Century Cures Act, medical imaging exams and procedure reports are released immediately into your electronic medical record. You may view this report before your referring provider. If you have questions, please contact your health [...] with Bigeminy than true NSVT. Lilo Camacho NP CARDIAC SERVICES ORD * EKG 12 LEAD (04/27/2024) Lilo A Camacho CODING QUALITY ANALYST EKG ORD * Anti-hepatitis C AM (01/08/2024 6:41 AM CDT) HEPATITIS C ANTIBODY Non-Reacti ve Non-React nu 01/09/2024 1:49 PM CDT [facility] Comment:Please note, per [...] AM CDT Mainor Mao DO SEND OUTS [facility] [address] [place] [address], * (ABNORMAL) Lipid Panel AM (01/06/2024 7:41 AM CDT) CHOLESTEROL,TOTAL 170 100 - 199 mg/dL 01/06/2024 8:41 AM CDT [facility] Comment: Cholesterol, Total Reference Ranges Desirable <200 mg/dL Borderline 200-239 mg/dL High >=240 mg/dL TRIGLYCERIDES 155(H) <150 mg/dL 01/06/2024 8:41 AM CDT [facility] HDL CHOLESTEROL 30(L) >40 mg/dL 8:41 AM CDT [facility] NON-HDL CHOLESTEROL 140 <145 mg/dl 01/06/2024 8:41 AM CDT [facility] CHOL/HDL RATIO 5.67(H) <4.50 01/06/2024 8:41 AM CDT [facility] LDL CHOLESTEROL 109 <=130 mg/dL 01/06/2024 8:41 AM CDT [facility] VLDL CHOLESTEROL 31(H) <=30 mg/dL 01/06/2024 8:41 AM CDT [facility] PROVIDER ORDERED STATUS RANDOM 01/06/2024 8:41 AM CDT [facility] Blood BLOOD SPECIMEN / Unknown Venipuncture / Unknown 01/06/2024 7:41 AM CDT 01/06/2024 8:01 AM CDT Mainor Mao CHEMISTRY [facility] [address] [place] [address], * SCAN-MAMMOGRAPHY REPORT (02/22/2014 12:00 AM CDT) [...] Code Status Discussion: Reviewed Preferences Care Teams Wood Heel Fitter Machine Relationship Specialty Start Date End Date Dorothy Price [place] [address] PCP - General Family Practice 01/13/24
--- OUTSIDE RECORDS SUMMARY | 2024-06-28 06:37 | XMS_ITS | Encounter Summary ---
Author Organization [facility] Address [address] [place] [address] Care Team Providers Care Furnace Puncher Name Role Phone Unavailable Primary Care Provider Unavailabl e Reason for Visit * Reason Onset Date Comments Echo Move Up Request 05/20/2024 CVD Encounter Details Date Type Department Care Team (Latest Contact Info) Description 05/20/2024 Clinical Communication Department of Cardiovascular Medicine in [place], [place] [address] [place] [phone] Drying Machine TenderVolodymyr M.D. Echo Move Up Request (CVD) Social History Tobacco Use Types Packs/Day Years Used Date Smoking Tobacco: Former Cigarettes 1 22.6 1 970 - 1991 Smokeless Tobacco: Never Alcohol Use [...] on file Legal Sex Female 7:05 AM FUR COMBER Gender Identity Female 12/19/2017 9:47 AM CDT Sexual Orientation Straight 12/19/2017 9: 47 AM CDT Occupation Industry Job Start Date Job End Date Not on file Not on file Not on file Not on file documented as of this encounter Miscellaneous Notes * Telephone Encounter - Susy Joy - 05/20/2024 2:46 PM CDT ECHO MOVE UP REQUEST If there is any additional information please add it to the bottom. (I.E. provider request, nursingrequest, etc.) Appt Type: NEW Friday: Date: 06/21 Anytime Evening? Yes Friday: Date: 07/06 6:30 am, 7:50 am, 9:20 am, or 10:40 am Evening? No When does the provider see (date and time)?: 07/06 1:00 Are there times that do not work for pt?: No Is testing flexible to accommodate the echo?: Yes Pool for replies: P RST CVD COMP SCHEDULING documented in this encounter Plan of Treatment Upcoming Encounters Date Type Department Care Team (Latest Contact Info) Description 07/01/2024 1:15 PM FUR COMBER Clinical Communication Virtual Review in [place], [place] [address] [place] [address] 07/06/2024 1:00 PM FUR COMBER Comprehensive Visit Department of Cardiovascular Medicine in [place], [place] [address] [place] [phone] Daniel Tran M.D. [address] [place] [phone] documented as of this encounter Visit Diagnoses Not on filedocumented in this encounter
--- NOTE | 2024-06-28 07:52 | W.ANESCHARGE ---
Anesthesia Charges Start Date/Time Anesthesia Start Date: 06/28/24 Anesthesia Start Time: 07:21 Stop Date/Time Anesthesia Stop Date: 06/28/24 Anesthesia Stop Time: 07:49
--- NOTE | 2024-06-28 08:02 | W.ANESCHARGE ---
Anesthesia Charges Start Date/Time Anesthesia Start Date: 06/28/24 Anesthesia Start Time: 07:21 Stop Date/Time Anesthesia Stop Date: 06/28/24 Anesthesia Stop Time: 07:49
== END 2024-06-28 06:35 | disposition home or self-care (01) ==
LOC: OP CLINIC 06:34
PROVIDERS: PCP Internal Medicine; Visit Provider Internal Medicine
DX: Z12.11 Encounter for screening for malignant neoplasm of colon (principal); K57.30 Diverticulosis of large intestine without perforation or abscess without bleeding; Z86.0100 Personal history of colon polyps, unspecified
CPT/HCPCS: 00811; 00812; 45378; J2704

== ENCOUNTER 2024-11-03 06:08 | Day surgery (SDC) | payer MEDICARE, BC, SELFPAY ==
[2024-11-03] VITALS (9 sets, daily range): BP systolic 141–158; BP diastolic 73–91; PULSE 57–66; RESP 14–16; TEMP 37.1–37.3; O2SAT 93–95; BMI 40.7
[2024-11-03] MEDS: BUPIVACAINE 0.5% 30 ML INJECTION (07:00)
[2024-11-03] MEDS: ETHYL CHLORIDE 1 APPLICATION 1 APPLIC TOPICAL (07:00)
[2024-11-03] MEDS: LIDOCAINE 1%-EPI 1:100,000 20 ML INFILTRATI (07:00)
--- NOTE | 2024-11-03 07:45 | P.ORPRC_ITS ---
Procedure Note Date of procedure: 11/03/24 Procedure: PREOPERATIVE DIAGNOSIS: 1. Right long finger flexor tenosynovitis - trigger finger POSTOPERATIVE DIAGNOSIS: 1. Right long finger flexor tenosynovitis - trigger finger PROCEDURE: 1. Right long finger flexor tendon sheath open release (A1 stainder) SURGEON: Josias Guzman MD. MANIFEST/ORDER ORGANIZER PRINT ORDERS: Delta Carney PA-C ANESTHESIA: Local anesthetic 4ml via 50:50 mixture of 1% Lidocaine with epi and 0.5% marcaine plain EBL: 2mL IMPLANTS: None TOURNIQUET: None COMPLICATIONS: None evident INDICATIONS: The patient is a pleasant 69-year-old female who has experienced right long finger catching/triggering for number of months. It has progressively gotten worse. Cortisone injection was given for the affected digit(s) in the past with relief of pain and catching, but it was transient. Given the failure of nonoperative management, and how this affects daily life, surgery was recommended. DESCRIPTION OF PROCEDURE: Following a thorough discussion of risks, benefits, and alternatives consent was obtained and the operative digit(s) was marked. The patient was brought to the operating room and placed supine on the operating table. Local anesthesia induction was undertaken in preop holding. No antibiotics were administered as this was planned to be a local case only. Proper time-out was performed identifying proper patient, site, and procedure. The operative extremity was prepped and draped in the appropriate sterile fashion using ChloraPrep. An incision was made on the palmar surface of the hand overlying the MCP joint region of the appropriate digit(s) respecting the palmar creases being cautious not to cross these perpendicularly. Sharp incision through the skin, and blunt dissection through subcutaneous tissue allowing protection of crossing neurologic structures. The A1 satinder was visualized directly. It was incised sharply with a 15 blade. It was released completely from its distal to proximal extent under direct visualization. The tendon was inspected and found to be mildly striated consistent with some friction. Otherwise, it was intact. The tendon was removed out of the wound, and further inspected. The patient was asked to manually flex and extend the digits and showed no further catching. The catching, which was visualized initially, was no longer evident with reproduction of a manual fist and relaxation. Closure was performed with 4-O nylon in interrupted fashion. Soft dressings were applied, and the patient was transferred to the recovery room in stable condition. PLAN: 1. Encourage elevation of the operative extremity. 2. Range of motion of the fingers and hand/wrist as tolerated. 3. Ibuprofen/acetaminophen and/or other analgesics as needed for pain control. 4. Follow up with PA visit in 12-16 days for wound check and suture removal.
== END 2024-11-03 08:10 | disposition home or self-care (01) ==
LOC: OR 06:09
PROVIDERS: PCP Internal Medicine; Visit Provider Orthopaedic Surgery Sports Medicine
PROC: (CPT 26055; principal; 2024-11-03 07:15)
DX: M65.331 Trigger finger, right middle finger (principal); M65.841 Other synovitis and tenosynovitis, right hand
CPT/HCPCS: 26055; J0665

== ENCOUNTER 2024-12-07 10:15 | Outpatient (RCR) | payer MEDICARE, BC, SELFPAY ==
--- NOTE | 2024-11-10 12:14 | OT.OPOE ---
OT Outpatient Ortho Eval OT Outpatient Ortho Eval* Start: 11/10/24 10:56 Freq: Status: Active Protocol: Document 11/10/24 10:56 CSS (Rec: 11/10/24 12:05 CSS [id number]) E-signed By Yvette Segovia, OTR/L OT OP Ortho Eval Details Complexity Complexity Low Insurance Information Insurance Information Blue Cross/Blue Shield, Medicare B Outpatient History/Precautions Current Condition/Medical Diagnosis Referring Provider Dr. Guzman Medical Diagnoses Z98.890- other specified postprocedural states s/p R long finger A1 satinder release Treatment Diagnosis pain in hand(R)- M79.641 stiffness of hand(fingers included)- M25.641 hand instability(R)- M25.342 Edema(arm, finger, forearm, hand)- R22.32 Date of Onset 10/2023 Medical Conditions Heart Condition,Metal Implants ,Arthritis Medical/Functional History Medical History Reviewed Yes Prior Level of Function/Mobility Steroid injection in 07/2024 w no relief for pt. Surgery on 11/03/24. Pt has had R carpal tunnel release prior- she reports, years ago. Social History Employment Status Retired Hobbies projects: painting, wood work, Ortho Subjective Subjective Subjective Pt reports had been dealing with R middle finger triggering for 1 year and tried steriod injection with no relief. Surgery completed for A1 satinder release on 11/03. Pt notes since surgery, pt is able to write better. She does note that is still pretty painful and even wakes her up. Pain Assessment Pain Pain Yes Pain Comments R hand: Rest: 0/10 activity: 3/10 Range of Motion and Strength Hand/Finger/Thumb Range of Motion and Strength Hand/Finger/Thumb Range of Motion and R middle finger: Strength MCP: 20-61 degrees PIP: 65 degrees DIP: 40 degrees L middle finger: MCP: 10-72 degrees PIP: 83 degrees DIP: 68 degrees Hand Pinch/Spot Welder Line Strength Hand Pinch/Spot Welder Line Strength Hand Pinch/Spot Welder Line Strength Left Hand,Right Hand Left Hand Spot Welder Line Strength Position 1 in Elbow 39 Flexion (lbs) Lateral Pinch Strength (lbs) 15 Right Hand Spot Welder Line Strength Position 1 in Elbow 22 Flexion (lbs) Lateral Pinch Strength (lbs) 14 OT Objective Data Sensation Sensation Assessment Summary Comments tingling before and after surgery from palm down to forearm in RUE Dexterity Dexterity Dexterity Left Hand,Right Hand Left Hand Scoring Times 9-Hole Peg Hand Test Scoring Time ( 25 seconds) Right Hand Scoring Times 9-Hole Peg Hand Test Scoring Time ( 33 seconds) OT Problems Problems Problems Decreased Strength,Decreased Range of Motion,Decreased Dexterity,Pain,Sensory Sensitivity,Gripping,Pinching Other Problems Writing,Opening Containers, Dressing,Sleeping Patient Potential Excellent Assessment Assessment Assessment Pt is referred to OT after A1 satinder release of R middle finger on 11/03/24. Pt is noted to have weakness, increased pain, numbness, and limited ROM in R hand impacting pt's function in R hand. Pt would benefit from skilled OT to address above deficits through modalities, edema management, therapeutic activity, therapeutic exercise , and ADL retraining in order to return back to prior level functional status. Occupational Therapy Treatment Plan - OP Potential Rehabilitation Potential Good Set Goals Goals Set with Patient Yes Goals Goals Goals to be met by February 02, 2025: 1) Pt will increase R trade mark attorney strength to 40# or more to promote function in R hand. 2) Pt will increase R middle finger PIP AROM flexion to 80 degrees or more to promote function in R hand. 3) Pt will verbalize 0/10 pain in 2 consistent sessions or more while completing gripping /pinching activities. Treatment Plan Treatment Plan Evaluation,Edema Control, Iontophoresis with Dexamethasone Sodium Phosphate 1 mL (4mg per mL),Joint Mobilization,Manual Therapy, Splinting,Ultrasound,Wound Care/Scar Management, Therapeutic Exercise, Therapeutic Activities,Self Care/Home Management,Education Expected Frequency 1-2x Week Expected Duration 12 weeks Home Program Home Program Home Program Initiated Home Program Specifics compression glove, ice, swelling Certification Certification Statement I Certify That: Therapy Services Provided, Therapy Plan Established, Therapy Plan Reviewed Certification Information Clinic ID # [id number] Initial Certification Date 11/10/24 Recertification Due Date 02/02/25 Provider Signature Required Yes Provider Signature Shows Agreement With POC & Medical Necessity Physician NPI Number Write NPI# Here Physician Comment/Change Comment or Changes Physician Signature & Date Requested Please Sign/Date Here
== END 2025-02-17 15:55 | disposition home or self-care (01) ==
PROVIDERS: PCP Internal Medicine; Visit Provider Orthopaedic Surgery Sports Medicine
DX: Z48.89 Encounter for other specified surgical aftercare (principal); M79.641 Pain in right hand; R22.43 Localized swelling, mass and lump, lower limb, bilateral; Z51.89 Encounter for other specified aftercare
CPT/HCPCS: 97035; 97110; 97140; 97165; 97530; X5282

== ENCOUNTER 2025-01-17 16:58 | Emergency (ER) | payer MEDICARE, BC, SELFPAY ==
[2025-01-17] VITALS (9 sets, daily range): BP systolic 123–168; BP diastolic 75–99; PULSE 52–74; RESP 12–21; TEMP 36.3; O2SAT 92–95; BMI 40.9
--- OUTSIDE RECORDS SUMMARY | 2025-01-17 17:01 | XMS_ITS | Clinical Summary ---
Author Organization [facility] Address [address] [place] [id number] Care Team Providers Care Cutting Machine Tender Decorative Name Role Phone Dorothy Price MD Primary Care Prov ider Rita Mcintosh MD Unavailable [phone] Allergies Active Allergy Reactions Criticality Noted Date Comments Iodinated Contrast Media Hives 04/02/2011 Not certain which type of dye - possible gadolinium reaction. Patient tolerated Isoview 300 IV bolus for 11/2017 CT scan without problem. Signed Electronically: Lee Middleton M.D. . . . 12:09 PM 12/16/2017 Erythromycin Rash 08/25/2007 Oxycodone Rash 06/16/2018 Medications atorvastatin (LIPITOR) 20 mg tabletIndications :Coronary artery disease, unspecified vessel or lesion type, unspecified whether angina present, unspecified whether [place] or transplanted heart Take 1 Tablet (20 mg) by mouth at bedtime. 90 Tablet 3 05/21/2024 Active metoprolol succinate (TOPROL XL) 25 mg Sustained-Release tabletIndications :Palpitations,Atr ial flutter with rapid ventricular response (HC),PVC (premature ventricular contraction) Take 1 Tablet (25 mg) by mouth once daily. 90 Tablet 3 09/29/2024 Active Active Problems Problem Noted Date Diagnosed [...] Problem Noted Date Diagnosed Date Resolved Date terminal carman (current) use of anticoagulants 04/15/2011 05/03/2011 Immunizations Immunization Administration Dates Next Due COVID-19 vaccine (Moderna [...] is your housing situation today? 1 01/06/2024 Interpersonal Safety Answer Date Record ed Are you being hit, kicked, p ushed or yelled at (see row info)? No 03/04/2024 Interpersonal Safety Abuse 12 - 18 Not on file 03/04/2024 Interpersonal Safety Ambulatory Vulnerability No t on file 03/04/2024 Utilities Answer Date Recorded Do you have trouble paying f or utilities (for example, heat, electricity, water, phone)? 1 01/06/2024 Comments No Sex and Gender Information Value Date Recorded Sex Assigned at Not on file Legal Sex Female 6:17 AM DIESEL ENGINE PIPE FITTER Gender Identity Not on file Sexual Orientation Not on file Obstetrics History Last Filed Vital Signs Vital Sign Reading Time Taken Comments Blood Pressure 138/96 09/29/2024 3:04 PM DIESEL ENGINE PIPE FITTER Pulse 82 09/29/2024 3:04 PM DIESEL ENGINE PIPE FITTER Temperature 36.6 C (97.9 F) 03/04/2024 5:31 PM CDT Respiratory Rate 20 09/29/2024 3:04 PM DIESEL ENGINE PIPE FITTER Oxygen Saturation 94% 06/29/2024 1:30 PM DIESEL ENGINE PIPE FITTER Inhaled Oxygen Concentration - - Weight 111.1 kg (245 lb) 09/29/2024 3:04 PM DIESEL ENGINE PIPE FITTER Height 165.1 cm (5' 5) 09/29/2024 3:04 PM DIESEL ENGINE PIPE FITTER Body Mass Index 40.77 09/29/2024 3:04 PM DIESEL ENGINE PIPE FITTER Plan of Treatment Health Maintenance Due Date Last Done Comments Pneumococcal series for age 50+ (1 of 2 - PCV) 1975 Zoster (shingles) series for age 50+ (1 of 2) 2006 Mammogram for age 45-75 02/22/2015 02/22/2014, 04/21 Colonoscopy through age 75 08/28/2015 08/28/2005 RSV vaccine for adults or (1 - Risk 60-74 years 1-dose series) 2016 DEXA/DXA scan for age 65+ 2021 Medicare Wellness for age 65+ 2021 COVID-19 vaccine series ( season) 2024 08/21/2021, 11/03/2020, 10/06/2020 Tetanus booster 10/13/2024 10/13/2014, 02/25, 03/07/2005, Additional history exists Influenza Vaccine (Season Ended) 2025 03/18/2018 Depression screening for age 12+ 05/21/2025 05/21/2024 BMI (ht and wt on same day) for age 18+ 09/29/2025 09/29/2024, 06/29/2024, 04/27/2024, Additional history exists Lipids for age 45-75 01/05/2029 01/06/2024, 12/10/2023, 05/10/2010 Tdap Completed 10/13/2014 Hepatitis C screening for age 18-79 Completed 01/08/2024 Hepatitis B series for 19+ Aged Out N o longer eligible based on patient's age to complete this topic Procedures Procedure Name Priority Date/Time Associated Diagnosis Comments ANTI HCV KATHERINE 01/08/2024 6:41 AM CDT LIPID PANEL Early AM 01/06/2024 7:41 AM CDT SCAN-MAMMOGRAPHY REPORT 02/22/2014 12:00 AM CDT from Last 3 Months or Most Recently Relevant to Health Maintenance Results * Anti-hepatitis C AM (01/08/2024 6:41 AM CDT) HEPATITIS C ANTIBODY Non-Reacti ve Non-React nu 01/09/2024 1:49 PM CDT [facility] Comment:Please note, per www .CDC.gov: [...] AM CDT Mainor Mao DO SEND OUTS Vi l Result [facility] [address] [place] [address], [place] * (ABNORMAL) Lipid Panel AM (01/06/2024 7:41 AM CDT) [facility] CHOLESTEROL,TOTAL 170 100 - 199 mg/dL 01/06/2024 8:41 AM CDT [facility] Comment: Cholesterol, Total Reference Ranges Desirable <200 mg/dL Borderline 200-239 mg/dL High >=240 mg/dL TRIGLYCERIDES 155(H) <150 mg/dL 01/06/2024 8:41 AM CDT [facility] HDL CHOLESTEROL 30(L) >40 mg/dL 8:41 AM CDT [facility] NON-HDL CHOLESTEROL 140 <145 mg/dl 01/06/2024 8:41 AM CDT [facility] CHOL/HDL RATIO 5.67(H) <4.50 01/06/2024 8:41 AM CDT [facility] LDL CHOLESTEROL 109 <=130 mg/dL 01/06/2024 8:41 AM CDT [facility] VLDL CHOLESTEROL 31(H) <=30 mg/dL 01/06/2024 8:41 AM CDT [facility] PROVIDER ORDERED STATUS RANDOM 01/06/2024 8:41 AM CDT [facility] Blood BLOOD SPECIMEN / Unknown Venipuncture / Unknown 01/06/2024 7:41 AM CDT 01/06/2024 8:01 AM CDT us Mainor Mao DO CHEMISTRY Vi l Result [facility] [address] [place] [id number], * SCAN-MAMMOGRAPHY REPORT (02/22/2014 12:00 AM CDT) Anatomical Region Laterality Modality Other Narrative 02/23/2014 11:06 AM CDT Procedure Note Scanner - 02/22/2014 12:00 AM CDT us Scanner OTHER Final Result from Last 3 Months or Most Recently Relevant to Health Maintenance Insurance [place] BLUE HB ONLY MEDICARE PART A HB ONLY MEDICARE PART B HB ONLY [place] BLUE MR PB ONLY [facility] COMP Advance Directives * Full Code (Latest Code [...] Code Status Discussion: Reviewed Preferences Care Teams Cutting Machine Tender Decorative Relationship Specialty Start Date End Date Dorothy Price MD [address] [place] [address] PCP - General Family Practice 01/13/24 [place] [address] [place] [address] Rheumatology 08/03/24
--- OUTSIDE RECORDS SUMMARY | 2025-01-17 17:01 | XMS_ITS | Clinical Summary ---
Author Organization [facility] Address [address] [place] [address] Care Team Providers Care Rag Shredder Name Role Phone Elsewhere, Pcp Primary Care Provider Unavailabl e Source Comments Patient records contain information from all sites at [facility]. For routine questions regarding patient records, call [phone] during business hours, M-F 8:00 AM - 5:00 PM Central Time. Record requests for emergency care only can be directed to [phone] at any time.[facility] Allergies Active Allergy Reactions Criticality Noted Date [...] 1 tablet by mouth at bedtime. 05/21/2024 Active metoprolol succinate (Toprol XL) 25 mg 24 hr tablet Take 1 tablet (25 mg total) by mouth daily. Do not crush or chew. 30 tablet 3 07/06/2024 Active Active Problems Problem Noted Date Diagnosed [...] Date Resolved Date Neuropathy Peripheral 03/18/20182017 Immunizations Immunization Administration Dates Next Due Influenza, Seasonal, Injectable [...] drink = 0.6 oz pur e alcohol) Comments No Sex and Gender Information Value Date Recorded Sex Assigned at Not on file Legal Sex Female 7:05 AM KITCHEN DESIGNER Gender Identity Female 12/19/2017 9:47 AM CDT Sexual Orientation Straight 12/19/2017 9: 47 AM CDT Occupation Industry Job Start Date Job End Date Not on file Not on file Not on file Not on file Last Filed Vital Signs Vital Sign Reading Time Taken Comments Blood Pressure 167/117 07/06/2024 12:46 PM KITCHEN DESIGNER Pulse 77 07/06/2024 12:46 PM KITCHEN DESIGNER Temperature 36.6 C (97.9 F) 07/24/2018 1:31 PM KITCHEN DESIGNER Respiratory Rate 20 07/13/2018 1:05 AM KITCHEN DESIGNER Oxygen Saturation 93% 07/13/2018 1:05 AM KITCHEN DESIGNER Inhaled Oxygen Concentration - - Weight 114 kg (251 lb 5.2 oz) 07/06/2024 12:46 P M KITCHEN DESIGNER Height 163 cm (5' 4.17) 07/06/2024 12:46 PM KITCHEN DESIGNER Body Mass Index 42.91 07/06/2024 12:46 PM KITCHEN DESIGNER Plan of Treatment Health Maintenance Due Date Last Done Comments Bone Density Scan (Osteoporosis Screen) 1956 CT Colonography 1955 Cologuard 1955 Colonoscopy 1956 Colorectal Cancer Surveillance 1955 Hepatitis C Screening 1955 Pneumococcal vaccine (50+ years) (1 of 1 - PCV) 2006 Zoster Vaccines (1 of 2) 2006 RSV vaccine - (32-36 weeks) or 60+ years (1 - Risk 60-74 years 1-dose series) 2016 Mammogram 05/12/2021 05/12/2020 COVID-19 Vaccine ( - season) 2024 08/21/2021, 11/03/2020, 10/06/2020 Influenza Vaccine (#1) 2024 03/18/2018 Depression Screening (Annual PHQ-2) 07/28/2024 Fall Risk Screen (Annual) 07/28/2024 Office Visit for Blood Pressure Check / Re-check 10/04/2024 07/06/2024 DTaP,Tdap,and Td Vaccines (2 - Td or Tdap) 10/13/2024 10/13/2014, 03/07/2005 Fasting Glucose for Diabetes Screening 06/21/2025 06/21/2024, 01/16/2024, 01/15/2024, Additional history exists Hepatitis B Screening Discontinued 06/29/2024 IPV Vaccines Aged Out No longer eligi ble based on patient's age to complete this topic Medical Devices Implanted Type Area Pay Agent Device Identifier Shelf Expiration Date Model / Serial / Lot Bilateral Hip Implant Hip Implant Bilatera l: Hip Knee Implant Knee Implant Knee Description:Left Knee Knee Implant-03/20/20 11 Implanted:03/20 (Quantity not on file) Knee Implant Knee Description:Right Knee repla cement Procedures Procedure Name Priority Date/Time Associated Diagnosis Comments GLUCOSE, FASTING, S/P Routine 06/21/2024 10:23 AM KITCHEN DESIGNER Atherosclerotic Heart Disease Of [place] Coronary Artery Without Angina Pectoris Beat Premature Ventricular OUTSIDE MG MAMMOGRAM Routine 05/12/2020 11:30 AM CDT from Last 3 Months or Most Recently Relevant to Health Maintenance Results * (ABNORMAL) Glucose, Fasting (06/21/2024 10:23 AM KITCHEN DESIGNER) Glucose, P 118(H) 70 - 100 mg/dL 06/21/2024 11:27 AM KITCHEN DESIGNER DTL Last Intake 13 hr 06/21/2024 11:06 AM KITCHEN DESIGNER DTL Blood (Blood, Venous) 06/21/2024 10:23 AM KITCHEN DESIGNER 06/21/2024 11:06 AM KITCHEN DESIGNER Katie Coronel APRN, C.N.P., D.N.P. LAB BLOOD NON ADD-ON Final Result [address] [place] [address] * MAMMO SCREEN, BILAT, W/CAD-Outside Mammogram (05/12/2020 11:30 AM CDT) Narrative [facility] - 08/04/2020 10:29 PM KITCHEN DESIGNER This order has been created and auto-finalized to support the import of outside images. If available, original interpretation can be found on the Media Tab in Chart Review, in Document Viewer, or as an image in QREADS. If a re-interpretation or overread is required please follow defined workflow. us Provider Not In System IMG BI PROCEDURES Final R esult Performing Organization Address City/[facility]/ZIP Co de Phone Number [facility] NA from Last 3 Months or Most Recently Relevant to Health Maintenance Insurance MEDICARE [facility] [address] Care Teams Rag Shredder Relationship Specialty Start Date End Date Elsewhere, Pcp PCP - General Internal Medicine 06/16/24
--- OUTSIDE RECORDS SUMMARY | 2025-01-17 17:01 | XMS_ITS | Encounter Summary ---
Author Organization [facility] Address [address] [place] [address] Care Team Providers Care Juice Packaging Machines Setter Name Role Phone Elsewhere, Pcp Primary Care Provider Unavailabl e Reason for Referral * Outpatient (Routine) - Closed Specialty Diagnoses / Procedures Referred By Sheri rae Referred To Contact Urology Diagnoses Hematuria Sherry Aguiar M.D. Phone: tel: fax: [facility] Referral ID Status Reason Start Date Expiration Date Visits Re quested Visits Authorized [id number] Closed 12/15/2017 06/13/2018 1 1 Encounter Details Date Type Department Care Team (Late st Contact Info) Description 12/15/2017 [facility] [address] [place] [address] Sherry Aguiar M.D. [address] [place] [id number] Hematuria (Primary Dx) Social History Tobacco Use Types Packs/Day Years Used Date Smoking Tobacco: Former Comments Unknown Sex and Gender Information Value Date Recorded Sex Assigned at Not on file Legal Sex Female 7:05 AM DIRECTOR OF STUDENT AFFAIRS Gender Identity Female 12/19/2017 9:47 AM CDT Sexual Orientation Straight 12/19/2017 9: 47 AM CDT documented as of this encounter Plan of Treatment Scheduled Referrals Name Type Priority Associated Diagnoses Orde r Schedule Urology Referral Outpatient Referral Routine Hematuria Expected: 12/15/2017 (Approximate), Expires: 12/15/2020 documented as of this encounter Visit Diagnoses Diagnosis Hematuria- Primary documented in this encounter Care Teams Juice Packaging Machines Setter Relationship Specialty Start Date End Date Elsewhere, Pcp PCP - General Internal Medicine 06/16/24 documented as of this encounter
--- NOTE | 2025-01-17 17:19 | ED.CHESTPAIN ---
HPI - Chest Pain General Time Seen by Provider: 17:19 Date Seen: 01/17/25 Chief Complaint: Chest Pain Stated Complaint: Pain on left side of body Time Seen by Provider: 01/17/25 17:19 Source: patient, RN notes reviewed and old records reviewed Mode of arrival: ambulatory Limitations: no limitations History of Present Illness HPI narrative: 61-year-old female with history lumbar radiculopathy, congestive heart failure, PVCs who presents today with left-sided chest pain. She has had left-sided chest pain all day today, he comes and goes, lasts 2-3 minutes at a time. Pain is on the lateral chest, does not radiate, no associated shortness of breath, nausea, or vomiting. She notes this is worse with movement. She has not taken any medication for this. Denies lower extremity swelling, fevers or chills, no cough. Related Data Home Medications ?Medication ?Instructions ?Recorded ?Confirmed cholecalciferol (vitamin D3) 125 5,000 unit PO DAILY 01/25/22 12/21/24 mcg (5,000 unit) tablet atorvastatin 20 mg tablet 20 mg PO QPM 05/20/24 12/21/24 multivitamin (Multiple Vitamins 1 tab PO QDAY 07/29/24 12/21/24 tablet) metoprolol succinate 25 mg 25 mg PO DAILY 10/28/24 12/21/24 tablet,extended release 24 hr Previous Rx's ?Medication ?Instructions ?Recorded triamcinolone acetonide 0.1 % 1 applic topical QDAY #30 grams 02/11/23 topical ointment Allergies Allergy/AdvReac Type Severity Reaction Status Date / Time oxycodone Allergy Severe Full body Verified 12/24/24 10:17 rash erythromycin base Allergy Unknown Verified 12/24/24 10:17 iodine Allergy Unknown Verified 12/24/24 10:17 [facility] Medical History (Updated 01/17/25 @ 19:06 by Marck Tim MD) Hand pain ?M79.643 - Pain in unspecified hand (ICD-10) Bradycardia ?R00.1 - Bradycardia, unspecified (ICD-10) Fatty liver ?K76.0 - Fatty (change of) liver, not elsewhere classified (ICD-10) Impaired fasting glucose ?R73.01 - Impaired fasting glucose (ICD-10) Patent foramen ovale ?Q21.12 - Patent foramen ovale (ICD-10) Obesity ?E66.9 - Obesity, unspecified (ICD-10) Congestive heart failure ?I50.9 - Heart failure, unspecified (ICD-10) Atrial flutter (12/10/23) ?I48.92 - Unspecified atrial flutter (ICD-10) Type 2 diabetes mellitus ?E11.9 - Type 2 diabetes mellitus without complications (ICD-10) Atrophic vulvovaginitis ?N95.2 - Postmenopausal atrophic vaginitis (ICD-10) Pelvic pain ?R10.2 - Pelvic and perineal pain (ICD-10) JAIME (stress urinary incontinence, female) ?N39.3 - Stress incontinence (female) (male) (ICD-10) Vitamin D deficiency ?E55.9 - Vitamin D deficiency, unspecified (ICD-10) Subclinical hypothyroidism ?E03.8 - Other specified hypothyroidism (ICD-10) Lung nodule ?R91.1 - Solitary pulmonary nodule (ICD-10) History of dermatitis ?Z87.2 - Personal history of diseases of the skin and subcutaneous tissue (ICD-10) History of adenomatous polyp of colon ?Z86.010 - Personal history of colonic polyps (ICD-10) Essential hypertension ?I10 - Essential (primary) hypertension (ICD-10) Dyslipidemia ?E78.5 - Hyperlipidemia, unspecified (ICD-10) Chronic back pain ?M54.9 - Dorsalgia, unspecified (ICD-10) ?G89.29 - Other chronic pain (ICD-10) Carcinoma of vulva ?C51.9 - Malignant neoplasm of vulva, unspecified (ICD-10) Surgical History (Updated 12/24/24 @ 10:17 by Lilo Thakur) Status post trigger finger release (11/03/24) ?Z98.890 - Other specified postprocedural states (ICD-10) History of excision of mass ?Z98.890 - Other specified postprocedural states (ICD-10) History of carpal tunnel surgery of right wrist (06/02/09) ?Z98.890 - Other specified postprocedural states (ICD-10) History of total right knee replacement (04/09/11) ?Z96.651 - Presence of right artificial knee joint (ICD-10) History of total left knee replacement (05/19/18) ?Z96.652 - Presence of left artificial knee joint (ICD-10) History of total right hip arthroplasty (05/24/19) ?Z96.641 - Presence of right artificial hip joint (ICD-10) History of total left hip replacement (03/15/20) ?Z96.642 - Presence of left artificial hip joint (ICD-10) S/P ablation of atrial fibrillation ?Z98.890 - Other specified postprocedural states (ICD-10) ?Z86.79 - Personal history of other diseases of the circulatory system (ICD-10) History of cardioversion ?Z92.89 - Personal history of other medical treatment (ICD-10) History of tubal ligation ?Z98.51 - Tubal ligation status (ICD-10) History of endometrial ablation (2005) ?Z98.890 - Other specified postprocedural states (ICD-10) History of cholecystectomy (1993) ?Z90.49 - Acquired absence of other specified parts of digestive tract (ICD-10) Family History (System 12/24/24 @ 10:17 by Lilo Thakur) Mother Dementia Diabetes Hypothyroidism Father High blood pressure Nonmelanoma skin cancer Uncle Stroke Social History (System 12/24/24 @ 10:17 by Lilo Thakur) Narrative: Does not exercise due to knee pain , 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 [employer] Non-smoker- quit age 37, 15 pack years Rarely consumes alcohol What is your current living situation?: I presently have a place to live Problems where you live: no known problems In the past 12 months, utilities in danger of being shut off: no In past 12 months, lack of transportation kept you from medical appts, meetings, work, or getting things needed for daily living: no In the past 12 mos, have been you worried that your food would run out before you had money to buy more?: never true In the past 12 mos, the food you bought just didn't last and you didn't have money to buy more?: never true Smoking Status: Former smoker Second hand tobacco smoke exposure: No How often do you have a drink containing alcohol: never AUDIT-C Alcohol total score: 0 Non-prescribed substance use: denies use How often does anyone, including family, friends and others, physically hurt you: never How often does anyone, including family, friends and others, insult or talk down to you: never How often does anyone, including family, friends and others, threaten you with harm: never How often does anyone, including family, friends and others, scream or curse at you: never Exam Narrative Exam Narrative: General: Well-developed and well-nourished, no acute distress Head: Atraumatic and normocephalic Eyes: Pupils are equal reactive, extraocular motions intact, conjunctiva clear ENT: External nose and ears are normal, posterior pharynx without erythema or exudate Neck: No midline cervical tenderness, full spontaneous range of motion the neck, trachea midline, no adenopathy Heart: Regular rate and rhythm no murmurs or thrills. Point tenderness of the left lateral chest wall and pain with raising the arm up over the head. Lungs: Clear to auscultation bilaterally without wheezes or crackles Abdomen: Soft, nontender, nondistended with active bowel sounds Musculoskeletal: No tenderness, deformity, or edema Neurologic: Awake, alert, and oriented x3, no gross focal neurologic deficits, cranial nerves intact as tested Psych: Mood and affect are appropriate Skin: No rashes Const Vital Signs, click to edit/add: Vital Signs - 24 hr 01/17/25 17:11 01/17/25 18:26 01/17/25 18:27 Temperature 97.4 F L Pulse Rate 66 67 Pulse Rate [Pulse Oximeter] 74 Respiratory Rate 16 12 21 Blood Pressure 128/77 Blood Pressure [Right Upper Arm] 168/99 H Pulse Oximetry 95 94 94 Oxygen Delivery Method Room Air Course Course ED Course: Reviewed most recent cardiology visit from September 2024 which was was for dysrhythmia, patient had PVCs in [place] [facility] with typical atrial flutter, she underwent a catheter ablation. Also reviewed echocardiogram from October 16 which showed normal left ventricular size, normal IVC, frequent ectopy. Patient presents today with left-sided chest pain, intermittent lasting 2-3 minutes at a time and she describes it as sharp, worse with movement including moving the arm. No shortness of breath, no pain with taking a deep breath. On exam here, vital a stable, EKG without acute ischemic changes and patient has tenderness on palpation of the lateral chest wall. Symptoms are most consistent with musculoskeletal pain. However given patient's history, cardiac labs are ordered. Pain is not pleuritic, no tachycardia or hypoxia, no shortness of breath, no cough, pulmonary embolism is clinically unlikely. EKG independently interpreted by me performed at 5:28 p.m. demonstrates sinus rhythm rate 72, left axis deviation, no acute ischemic changes, QTC 416, NM 160. Compared to prior of December 28, with previously seen frequent PVCs are absent. Reevaluation(s) Time of Reevaluation #1: 18:42 Reevaluation #1: Labs independently interpreted by me with troponin 0, CBC with mild leukocytosis white blood cell count 11.25. Chest x-ray and panel interpreted by me negative for acute findings. Chest x-ray: IMPRESSION: 1. No acute cardiopulmonary findings. 2. No displaced rib fracture identified. 3. Partially visualized chronic appearing abnormality in the left mid humeral shaft, possibly an old fracture deformity however clinical correlation is recommended. Time of Reevaluation #2: 19:05 Reevaluation #2: Labs independently interpreted by me with normal basic panel, D-dimer 0.054 which is negative with age adjustment. Patient stable for discharge with symptomatic treatment of her musculoskeletal left-sided chest pain. Vital Signs Vital signs: Initial Vital Signs Respiratory Effort Normal, Spontaneous, Non-Labored 01/17/25 16:58 Respiratory Depth Normal 01/17/25 16:58 Vital Signs Temperature 97.4 F L 01/17/25 17:11 Pulse Rate 74 01/17/25 17:11 Respiratory Rate 16 01/17/25 17:11 Blood Pressure 168/99 H 01/17/25 17:11 Pulse Oximetry 95 01/17/25 17:11 Oxygen Delivery Method Room Air 01/17/25 17:11 Temperature 97.4 F L 01/17/25 17:11 Pulse Rate 67 01/17/25 18:27 Respiratory Rate 21 01/17/25 18:27 Blood Pressure 128/77 01/17/25 18:26 Pulse Oximetry 94 01/17/25 18:27 Oxygen Delivery Method Room Air 01/17/25 17:11 Medications Administered Medications: Discontinued Medications Generic Name Dose Route Start Last Admin Trade Name Freq PRN Reason Stop Dose Admin Ketorolac Tromethamine 15 mg 01/17/25 17:54 01/17/25 18:17 Ketorolac 15 Mg/Ml Inj IVP 01/17/25 17:55 15 mg ONCE ONE Administration MDM - Chest Pain Lab Data Labs: Lab Results 01/17/25 01/17/25 Range/Units 17:55 18:10 WBC 11.25 H (4.50-11.00) K/uL RBC 4.82 (4.00-5.20) m/uL Hgb 14.6 (12.0-16.0) gm/dL Hct 43.5 (33.0-51.0) % MCV 90 (80-100) fL MCH 30 (26-34) pg MCHC 34 (32-36) gm/dL RDW Coeff of Erin 11.9 (11.5-15.5) % Plt Count 244 (140-440) K/uL Neut % (Auto) 70.5 (42.0-72.0) % Lymph % (Auto) 22.5 (20-44) % Burt % (Auto) 5.2 (0.0-11.0) % Eos % (Auto) 1.3 (0.0-7.0) % Baso % (Auto) 0.2 (0.0-3.0) % Neut # (Auto) 7.90 H (1.7-7.0) K/uL Lymph # (Auto) 2.50 (0.90-2.90) K/uL Burt # (Auto) 0.60 (0.00-0.90) K/UL Eos # (Auto) 0.10 (0.00-0.50) K/uL Baso # (Auto) 0.00 (0.00-0.30) K/uL Abs Immat Gran (auto) 0.00 (0.00-0.30) K/uL Imm/Tot Granulo (auto) 0.3 % D-Dimer Quant (PE/DVT) 0.54 H (0.00-0.50) ug/ml Sodium 139 (135-149) mmol/L Potassium 4.2 (3.6-5.1) mmol/L Chloride 105 (96-114) mmol/L POC Troponin I 0.00 L (0.01-0.04) ng/ml Discharge Plan Discharge Clinical Impression: Musculoskeletal chest pain Patient Disposition: Home, Self-Care Instructions: Chest Wall Pain (ED) Additional Instructions: Take Tylenol and ibuprofen as needed for pain Activity Level: Activity as Tolerated Discharge Diet: Regular Prescriptions: No Action metoprolol succinate 25 mg tablet extended release 24 hr 25 mg PO DAILY cholecalciferol (vitamin D3) 125 mcg (5,000 unit) tablet 5,000 unit PO DAILY triamcinolone acetonide 0.1 % ointment 1 applic topical QDAY Qty: 30 0RF atorvastatin 20 mg tablet 20 mg PO QPM multivitamin [Multiple Vitamins] Tablet 1 tab PO QDAY Follow Up/Referrals: Kelechi Avitia MD [Primary Care Provider, Internal Medicine] Stand Alone Forms: Chat Sports Info Instructions
--- NOTE | 2025-01-17 17:54 | CRLHL7_ITS ---
For Patients: As a result of the Cures Act, medical imaging exams and procedure reports are released immediately into your electronic medical record. You may view this report before your referring provider. If you have questions, please contact your health care provider. INDICATION: Chest pain left-sided. TECHNIQUE: PA chest and left ribs 3 views. COMPARISON: Chest radiograph 12/22/2023. FINDINGS: Cardiovascular: Stable cardiomegaly. Pulmonary vasculature is within normal limits. Lungs and pleural spaces: The lungs are clear. No sign of pleural effusion. No pneumothorax identified. Bones: Detailed oblique views of the ribs demonstrate no displaced fracture. Degenerative changes of the shoulders. Partially visualized heterogeneous sclerosis in the mid left humeral shaft with irregular cortical thickening. Soft tissues: Unremarkable. IMPRESSION: 1. No acute cardiopulmonary findings. 2. No displaced rib fracture identified. 3. Partially visualized chronic appearing abnormality in the left mid humeral shaft, possibly an old fracture deformity however clinical correlation is recommended. Dictated by Pat Silvestre MD @ 01/17/2025 6:29:37 PM (Electronically Signed)
[2025-01-17] MEDS: KETOROLAC 15 MG/ML inj IVP (18:17)
[2025-01-17 18:25] LABS: Basophils Percent Auto 0.2 % (0.0-3.0); Eosinophils Percent Auto 1.3 % (0.0-7.0); Hematocrit 43.5 % (33.0-51.0); Hemoglobin* 14.6 gm/dL (12.0-16.0); Immature Granulocytes Pct Auto 0.3 %; Lymphocytes Percent Auto 22.5 % (20-44); Mean Corpuscular HGB Conc 34 gm/dL (32-36); Mean Corpuscular Hemoglobin 30 pg (26-34); Mean Corpuscular Volume 90 fL (80-100); Monocytes Percent Auto 5.2 % (0.0-11.0); Neutrophils Percent Auto 70.5 % (42.0-72.0); Platelet Count* 244 K/uL (140-440); RDW Coefficient of Variation % 11.9 % (11.5-15.5); Red Blood Count 4.82 m/uL (4.00-5.20); White Blood Count* 11.25 K/uL (4.50-11.00)
[2025-01-17 18:35] LABS: Slide Review Reflex No
[2025-01-17 18:47] LABS: Chloride* 105 mmol/L (96-114); Potassium* 4.2 mmol/L (3.6-5.1); Sodium* 139 mmol/L (135-149)
[2025-01-17 18:50] LABS: Anion Gap 8 mEq/L (7-15); Blood Urea Nitrogen* 18 mg/dL (7-30); Calcium* 9.1 mg/dL (8.4-10.6); Carbon Dioxide* 26 mmol/L (20-32); Creatinine* 0.9 mg/dL (0.5-1.5); Est. Creatinine Clearance* 48.45; Estimated Glomerular Filt Rate 70 ml/min; Glucose* 104 mg/dL (60-115)
[2025-01-17 18:51] LABS: Magnesium* 1.9 mg/dL (1.5-2.6)
[2025-01-17 19:04] LABS: D Dimer Quantitative* 0.54 ug/ml (0.00-0.50)
== END 2025-01-17 19:15 | disposition home or self-care (01) ==
PROVIDERS: Emergency Provider Family Medicine; PCP Internal Medicine
DX: R07.89 Other chest pain (principal)
CPT/HCPCS: 36415; 71101; 80048; 83735; 84484; 85025; 85379; 93005; 96374; 99284; 99285; J1885

== ENCOUNTER 2025-06-21 13:06 | Outpatient (CLI) | payer MEDICARE, BC, SELFPAY ==
--- NOTE | 2025-06-21 13:20 | CRLHL7_ITS ---
For Patients: As a result of the Century Cures Act, medical imaging exams and procedure reports are released immediately into your electronic medical record. You may view this report before your referring provider. If you have questions, please contact your health care provider. INDICATION: BILATERAL SCRENING MAMMOGRAM, ASYMPTOMATIC 69 Y/O FEMALE COMPARISON: 09/10/22, 06/26/21 TECHNIQUE: Digital mammogram in CC and MLO projections including computer-aided detection (CAD) and tomosynthesis. BREAST COMPOSITION: There are scattered areas of fibroglandular density. FINDINGS: No suspicious findings. ASSESSMENT: BI-RADS 1 Negative RECOMMENDATION: Annual screening mammogram. A lay language report of this examination will be provided to the patient. Dictated by: Jennifer Felton MD @ 06/22/2025 20:45:50 (Electronically Signed)
== END 2025-06-21 13:07 | disposition home or self-care (01) ==
LOC: MAMMO 13:08
PROVIDERS: PCP Internal Medicine; Visit Provider Internal Medicine
DX: Z12.31 Encounter for screening mammogram for malignant neoplasm of breast (principal)
CPT/HCPCS: 77063; 77067